=== PATIENT | female | born 1965 | race Caucasian/White ===

== ENCOUNTER 2016-07-21 19:48 | Emergency (ER) | payer OTHER ==
[~2016-07-21 19:48] MED LIST: CLON1TAB3 PO; DIAZ5TAB PO; FLUO10CA13 PO; NALT50TA PO; PROM25SU32 RC; TOPI100T42 PO; TRAZ50TA15 PO
--- NOTE | 2016-07-21 19:50 | ED.ADGEN ---
Past History Past Medical History: Alcoholism, Anxiety Past Surgical History: No Surgical History, Cholecystectomy Alcohol Use: Heavy Drug Use: None Adult General Chief Complaint Chief Complaint Alcohol intoxication HPI HPI Patient is a 51 year old female who presents with alcohol intoxication. according to her and the patient she has a history of alcohol abuse and has been through detox several times. Her last time was 4 months ago and she was able to keep sober until 4 days ago. She's been drinking beer for the last 4 days and not eating or drinking much. The brings her in because of the patient likely being dehydrated. He states she has support at [facility] and is wanting IV hydration and labs. Patient denies any fevers chills nausea vomiting chest pain or abdominal pain. Review of Systems Review of Systems Constitutional: Denies fever or chills [] Eyes: Denies change in visual acuity, redness, or eye pain [] HENT: Denies nasal congestion or sore throat [] Respiratory: Denies cough or shortness of breath [] Cardiovascular: No additional information not addressed in HPI [] GI: Denies abdominal pain, nausea, vomiting, bloody stools or diarrhea [] : Denies dysuria or hematuria [] Musculoskeletal: Denies back pain or joint pain [] Integument: Denies rash or skin lesions [] Neurologic: Denies headache, focal weakness or sensory changes [] Endocrine: Denies polyuria or polydipsia [] Current Medications Current Medications Current Medications Medications (Trade) Dose Ordered Sig/Master Start Time Stop Time Status Last Admin Dose Admin Dextrose/Sodium Chloride 1,000 ml @ As Directed STK-MED ONCE 07/21/16 20:38 07/21/16 20:39 DC Folic Acid 5 mg STK-MED ONCE 07/21/16 20:39 07/21/16 20:40 DC Multivitamins/ Minerals (Infuvite Adult) 10 ml STK-MED ONCE 07/21/16 20:39 07/21/16 20:40 DC Multivitamins/ Minerals 10 ml/ Folic Acid 1 mg/ Thiamine HCl 100 mg/Dextrose/ Sodium Chloride 1,011.2 ml @ 1,000.088 mls/hr 1X ONCE 07/21/16 20:45 07/21/16 21:45 DC 07/21/16 20:45 1,000.088 MLS/HR Pantoprazole Sodium (Protonix) 40 mg 1X ONCE 07/21/16 21:15 07/21/16 21:16 DC 07/21/16 21:15 40 MG Phytonadione (Vitamin K) 10 mg STK-MED ONCE 07/21/16 20:38 07/21/16 20:39 DC Sodium Chloride 1,000 ml @ 1,000 mls/hr 1X ONCE 07/21/16 21:30 07/21/16 22:29 07/21/16 21:23 1,000 MLS/HR Thiamine HCl 200 mg STK-MED ONCE 07/21/16 20:38 07/21/16 20:39 DC Allergies Allergies Allergies Coded Allergies Type Severity Reaction Last Updated Verified No Known Drug Allergies 08/12/15 No Physical Exam Physical Exam Constitutional: Well developed, well nourished, no acute distress, non-toxic appearance. [] HENT: Normocephalic, atraumatic, bilateral external ears normal, oropharynx moist, no oral exudates, nose normal. [] Eyes: PERRLA, EOMI, conjunctiva normal, no discharge. [] Neck: Normal range of motion, no tenderness, supple, no stridor. [] Cardiovascular:Heart rate regular rhythm, no murmur [] Lungs & Thorax: Bilateral breath sounds clear to auscultation [] Abdomen: Bowel sounds normal, soft, no tenderness, no masses, no pulsatile masses. [] Skin: Warm, dry, no erythema, no rash. [] Back: No tenderness, no CVA tenderness. [] Extremities: No tenderness, no cyanosis, no clubbing, ROM intact, no edema. [] Neurologic: Alert and oriented X 3, normal motor function, normal sensory function, no focal deficits noted. [] Psychologic: Affect normal, judgement normal, mood normal. [] Current Patient Data Vital Signs Vital Signs Date Time Temp Pulse Resp B/P (MAP) Pulse Ox O2 Delivery O2 Flow Rate FiO2 07/21/16 19:55 98.3 86 20 95 Room Air Lab Results Laboratory Tests Test 07/21/16 20:05 07/21/16 20:23 Urine Test Negative (NEG) White Blood Count 7.6 x10^3/uL (4.0-11.0) Red Blood Count 4.47 x10^6/uL (3.50-5.40) Hemoglobin 14.2 g/dL (12.0-15.5) Hematocrit 40.8 % (36.0-47.0) Mean Corpuscular Volume 91 fL (79-100) Mean Corpuscular Hemoglobin 32 pg (25-35) Mean Corpuscular Hemoglobin Concent 35 g/dL (31-37) Red Cell Distribution Width 12.7 % (11.5-14.5) Platelet Count 285 x10^3/uL (140-400) Neutrophils (%) (Auto) 65 % (31-73) Lymphocytes (%) (Auto) 31 % (24-48) Monocytes (%) (Auto) 3 % (0-9) Eosinophils (%) (Auto) 1 % (0-3) Basophils (%) (Auto) 0 % (0-3) Neutrophils # (Auto) 5.0 x10^3uL (1.8-7.7) Lymphocytes # (Auto) 2.3 x10^3/uL (1.0-4.8) Monocytes # (Auto) 0.2 x10^3/uL (0.0-1.1) Eosinophils # (Auto) 0.0 x10^3/uL (0.0-0.7) Basophils # (Auto) 0.0 x10^3/uL (0.0-0.2) Urine Collection Type Unknown Urine Color Yellow Urine Clarity Hazy Urine pH 5.5 Urine Specific [place] 1.015 Urine Protein Neg (NEG-TRACE) Urine Glucose (UA) Neg mg/dL (NEG) Urine Ketones (Stick) Neg mg/dL (NEG) Urine Blood Small (NEG) Urine Nitrite Neg (NEG) Urine Bilirubin Neg (NEG) Urine Urobilinogen Dipstick 0.2 mg/dL (0.2 mg/dL) Urine Leukocyte Esterase Neg (NEG) Urine RBC 1-2 /HPF (0-2) Urine WBC 1-4 /HPF (0-4) Urine Squamous Epithelial Cells Mod /LPF Urine Bacteria Few /HPF (0-FEW) Urine Mucus Mod /LPF Sodium Level 144 mmol/L (136-145) Potassium Level 3.9 mmol/L (3.5-5.1) Chloride Level 104 mmol/L (98-107) Carbon Dioxide Level 29 mmol/L (21-32) Anion Gap 11 (6-14) Blood Urea Nitrogen 20 mg/dL (7-20) Creatinine 0.7 mg/dL (0.6-1.0) Estimated GFR (Cockcroft-Gault) 87.9 BUN/Creatinine Ratio 29 (6-20) H Glucose Level 85 mg/dL (70-99) Calcium Level 8.1 mg/dL (8.5-10.1) L Total Bilirubin 0.2 mg/dL (0.2-1.0) Aspartate Amino Transferase (AST) 46 U/L (15-37) H Alanine Aminotransferase (ALT) 44 U/L (14-59) Alkaline Phosphatase 81 U/L (46-116) Total Protein 7.6 g/dL (6.4-8.2) Albumin 3.8 g/dL (3.4-5.0) Albumin/Globulin Ratio 1.0 (1.0-1.7) Ethyl Alcohol Level 293 mg/dL (0-10) H EKG EKG [] Radiology/Procedures Radiology/Procedures [] Course & Med Decision Making Course & Med Decision Making Pertinent Labs and Imaging studies reviewed. (See chart for details) Patient's labs are nonacute. She received Protonix that she's been discharged with Protonix and Phenergan. She is going to follow-up with her [facility] counselor. Return precautions given she and her is agreeable plan of being discharged in stable condition at this time Final Impression Final Impression Dehydration Nausea Alcohol abuse Problems: Dragon Disclaimer Dragon Disclaimer This electronic medical record was generated, in whole or in part, using a voice recognition dictation system. SOLEDAD LUCERO MD Jul 21, 2016 19:50
[2016-07-21] MEDS ORDERED: THIAMINE 200 MG/2 ML VIAL. IV ONE (20:38)
[2016-07-21] MEDS ORDERED: IV DEXTROSE 5 %-0.45 % NACL 1,000 ML ONE (20:38)
[2016-07-21] MEDS ORDERED: PHYTONADIONE 10 MG/ML AMPUL. ONE (20:38)
[2016-07-21] MEDS ORDERED: MVI, ADULT NO.4 WITH VIT K 10 ML VIAL IV ONE (20:39)
[2016-07-21] MEDS ORDERED: FOLIC ACID 5 MG/ML SYRINGE for ER IV ONE (20:39)
[2016-07-21] MEDS ORDERED: MVI, ADULT NO.4 WITH VIT K 10 ML, FOLIC ACID SYRINGE for ER 1 MG, THIAMINE 100 MG in IV... IV ONE ×4 (20:45)
[2016-07-21 20:52] LABS: BASO % 0 % (0-3); EOS % 1 % (0-3); HEMATOCRIT 40.8 % (36.0-47.0); HEMOGLOBIN 14.2 g/dL (12.0-15.5); LYMPH # 2.3 x10^3/uL (1.0-4.8); LYMPH % 31 % (24-48); MEAN CORPUSCULAR HEMOGLOBIN 32 pg (25-35); MEAN CORPUSCULAR HGB CONC 35 g/dL (31-37); MEAN CORPUSCULAR VOLUME 91 fL (79-100); MONO # 0.2 x10^3/uL (0.0-1.1); MONO % 3 % (0-9); NEUT % 65 % (31-73); PLATELET COUNT 285 x10^3/uL (140-400); RED BLOOD COUNT 4.47 x10^6/uL (3.50-5.40); RED CELL DISTRIBUTION WIDTH 12.7 % (11.5-14.5); WHITE BLOOD COUNT 7.6 x10^3/uL (4.0-11.0)
[2016-07-21 20:58] LABS: ALBUMIN 3.8 g/dL (3.4-5.0); CALCIUM 8.1 mg/dL (8.5-10.1); CREATININE 0.7 mg/dL (0.6-1.0); GFR 87.9; POTASSIUM 3.9 mmol/L (3.5-5.1); TOTAL BILIRUBIN 0.2 mg/dL (0.2-1.0); TOTAL PROTEIN 7.6 g/dL (6.4-8.2)
[2016-07-21 21:08] LABS: U PREG PATIENT NEGATIVE (NEG)
[2016-07-21] MEDS ORDERED: PANTOPRAZOLE 40 MG TABLET. PO ONE (21:15)
[2016-07-21 21:24] LABS: CLARITY,URINE HAZY; COLOR,URINE YELLOW; GLUCOSE,URINE NEG (NEG)
[2016-07-21 21:25] LABS: BILIRUBIN,URINE NEG (NEG)
[2016-07-21 21:26] LABS: BACTERIA,URINE FEW /HPF (0-FEW); NITRITE,URINE NEG (NEG); SQUAMOUS EPITHELIAL CELL,UR MOD /LPF; UROBILINOGEN,URINE 0.2 mg/dL (0.2 mg/dL)
[2016-07-21] MEDS ORDERED: IV NORMAL SALINE 1,000ML 1,000 ML IV ONE (21:30)
[2016-07-21] MEDS ORDERED: PROMETHAZINE 12.5 MG in IV NORMAL SALINE 50ML 50 ML IV PRN (22:00)
[2016-07-21] MEDS ORDERED: PROM25TA10 PO (22:01)
[2016-07-21] MEDS ORDERED: PANT40TA3 PO (22:01)
[2016-07-21 22:08] VITALS: BP 114/77
== END 2016-07-21 22:09 | disposition home or self-care (01) ==
LOC: ER 19:48
DX: F10.129 Alcohol abuse with intoxication, unspecified (principal); R11.0 Nausea; F41.9 Anxiety disorder, unspecified
CPT/HCPCS: 36415; 80053; 80320; 81001; 81025; 85027; 96361; 96365; G0480; 99284-25; J7030

== ENCOUNTER 2016-09-23 16:04 | Emergency (ER) | payer OTHER ==
[~2016-09-23] VITALS: Ht 170.2 cm; Wt 56.7 kg
[~2016-09-23 16:04] MED LIST changes: +PANT40TA3 PO; +PROM25TA10 PO
[2016-09-23] MEDS ORDERED: IV NORMAL SALINE 1,000ML 1,000 ML IV ONE (16:30)
[2016-09-23] MEDS ORDERED: FAMOTIDINE 20 MG/2 ML VIAL IVP ONE (16:50)
[2016-09-23] MEDS ORDERED: cloNIDine HCL 0.1 MG TABLET PO PRN (17:30)
[2016-09-23] MEDS ORDERED: LORazepam 2 MG/ML VIAL IV PRN (17:30)
[2016-09-23] MEDS ORDERED: LORazepam 1 MG TABLET PO PRN (17:30)
--- NOTE | 2016-09-23 17:56 | PHYS DOC ---
Past History Past Medical History: Anxiety, Other Past Surgical History: Cholecystectomy Alcohol Use: Heavy Drug Use: None Adult General Chief Complaint Chief Complaint: NAUSEA/VOMITING/DIARRHEA HPI HPI 51-year-old female presenting to the emergency department with hematemesis and concern for possible alcohol withdrawal. She reports being sober for approximately one month and then relapsing about 5 days ago taking about 1 L of hard alcohol every day. She last drank approximately 12-24 hours ago. She denies having much pain but does have nausea with vomiting. She reports coffee- ground emesis. Onset today. Location GI tract. Duration intermittent. No alleviating or exacerbating factors present. Review of systems was negative for chest pain shortness of breath fevers chills headache confusion cyanosis lethargy. All other review of systems is negative unless otherwise noted in history of present illness. ED course: 51-year-old female presenting to the emergency department today with hematemesis. Patient was tachycardic in the emergency department. Afebrile. Mildly hypertensive. IV established and fluids given along with Pepcid. Patient was admitted to [facility] with GI consultation for GI bleeding and alcohol withdrawal treatment. I discussed the case with Dr. Chua who accepted the patient for admission for further evaluation workup and care. Review of Systems Review of Systems SEE ABOVE. Current Medications Current Medications Current Medications Medications (Trade) Dose Ordered Sig/Master Start Time Stop Time Status Last Admin Dose Admin Clonidine HCl (Catapres) 0.1 mg PRN Q1HR PRN 09/23/16 17:30 Famotidine (Pepcid) 20 mg 1X ONCE 09/23/16 16:50 09/23/16 16:51 DC 09/23/16 16:50 20 MG Lorazepam (Ativan) 2 mg PRN Q1HR PRN 09/23/16 17:30 09/23/16 17:33 2 MG Multivitamins/ Minerals 10 ml/ Thiamine HCl 100 mg/Folic Acid 1 mg/Sodium Chloride 1,011.2 ml @ 100 mls/ hr DAILY 09/24/16 09:00 09/29/16 08:59 Sodium Chloride 1,000 ml @ 1,000 mls/hr 1X ONCE 09/23/16 16:30 09/23/16 17:29 DC 09/23/16 16:30 1,000 MLS/HR Allergies Allergies Allergies Coded Allergies Type Severity Reaction Last Updated Verified No Known Drug Allergies 08/12/15 No Physical Exam Physical Exam Constitutional: Well developed, well nourished, no acute distress, non-toxic appearance. [] HENT: Normocephalic, atraumatic, bilateral external ears normal, oropharynx moist, no oral exudates, nose normal. [] Eyes: PERRLA, EOMI, conjunctiva normal, no discharge. [] Neck: Normal range of motion, no tenderness, supple, no stridor. [] Cardiovascular:Heart rate regular rhythm, no murmur [] Lungs & Thorax: Bilateral breath sounds clear to auscultation [] Abdomen: Soft nontender abdomen without rebound tenderness or guarding present. Negative McBurneys point. Negative Parham sign. No ecchymosis present. Skin: Warm, dry, no erythema, no rash. [] Back: No tenderness, no CVA tenderness. [] Extremities: No tenderness, no cyanosis, no clubbing, ROM intact, no edema. [] Neurologic: Alert and oriented X 3, normal motor function, normal sensory function, no focal deficits noted. [] Psychologic: Affect normal, judgement normal, mood normal. [] EKG EKG [] Radiology/Procedures Radiology/Procedures [] Course & Med Decision Making Course & Med Decision Making Pertinent Labs and Imaging studies reviewed. (See chart for details) [] Dragon Disclaimer Dragon Disclaimer This chart was dictated in whole or in part using Voice Recognition software in a busy, high-work load, and often noisy Emergency Department environment. It may contain unintended and wholly unrecognized errors or omissions. Departure Departure: Impression: Primary Impression: Alcohol withdrawal Additional Impressions: Dehydration Hematemesis Disposition: ADMITTED INPATIENT Admitting Physician: Other Condition: STABLE Referrals: ASHUTOSH PUGA (PCP) Problem Qualifiers ANURAG IVY MD Sep 23, 2016 17:56
[2016-09-23 18:01] LABS: BASO % 0 % (0-3); EOS % 0 % (0-3); HEMATOCRIT 42.9 % (36.0-47.0); HEMOGLOBIN 14.1 g/dL (12.0-15.5); LYMPH # 1.5 x10^3/uL (1.0-4.8); LYMPH % 8 % (24-48); MEAN CORPUSCULAR HEMOGLOBIN 31 pg (25-35); MEAN CORPUSCULAR HGB CONC 33 g/dL (31-37); MEAN CORPUSCULAR VOLUME 95 fL (79-100); MONO # 1.1 x10^3/uL (0.0-1.1); MONO % 5 % (0-9); NEUT # 17.3 x10^3uL (1.8-7.7); NEUT % 87 % (31-73); PLATELET COUNT 241 x10^3/uL (140-400); RED BLOOD COUNT 4.52 x10^6/uL (3.50-5.40); WHITE BLOOD COUNT 19.9 x10^3/uL (4.0-11.0)
[2016-09-23 18:14] LABS: ALBUMIN 3.9 g/dL (3.4-5.0); CALCIUM 7.8 mg/dL (8.5-10.1); CREATININE 0.7 mg/dL (0.6-1.0); DIRECT BILIRUBIN 0.2 mg/dL (0.0-0.2); GFR 87.9; TOTAL BILIRUBIN 0.5 mg/dL (0.2-1.0); TOTAL PROTEIN 7.8 g/dL (6.4-8.2)
[2016-09-23 18:21] LABS: PREG TEST PT QUAL NEGATIVE (NEG)
[2016-09-23] MEDS ORDERED: MVI, ADULT NO.4 WITH VIT K 10 ML, THIAMINE 100 MG, FOLIC ACID 1 MG in IV NORMAL SALINE ... IV SCH ×4 (18:30)
[2016-09-23 18:51] VITALS: BP 109/85
[2016-09-23 19:10] LABS: AMPHETAMINE/METHAMPHETAMINE NEG (NEG); BARBITURATES NEG (NEG); BENZODIAZEPINES NEG (NEG); CANNABINOIDS NEG (NEG); COCAINE NEG (NEG); METHADONE NEG (NEG); OPIATES NEG (NEG); PHENCYCLIDINE NEG (NEG)
[2016-09-23 19:11] LABS: BACTERIA,URINE 0 /HPF (0-FEW); BILIRUBIN,URINE NEG (NEG); CLARITY,URINE CLEAR; COLOR,URINE YELLOW; GLUCOSE,URINE NEG (NEG); NITRITE,URINE NEG (NEG); RBC,URINE OCC /HPF (0-2); SQUAMOUS EPITHELIAL CELL,UR MOD /LPF; UROBILINOGEN,URINE 0.2 mg/dL (0.2 mg/dL)
[2016-09-23 20:03] LABS: % BANDS 5 % (0-9); % LYMPHS 9 % (24-48); % MONOS 4 % (0-10); % SEGS 82 % (35-66); PLT ESTIMATE ADEQUATE (ADEQUATE)
== END 2016-09-23 19:40 | disposition other institution (70) ==
LOC: ER 16:04
DX: F10.239 Alcohol dependence with withdrawal, unspecified (principal); E86.0 Dehydration; K92.0 Hematemesis; I10 Essential (primary) hypertension
CPT/HCPCS: 36415; 80048; 80076; 80307; 81001; 82947; 83690; 84703; 85007; 85027; 85610; 85730; 96361; 96365; 96375; 99285; J2060; S0028; G0479; J7030

== ENCOUNTER 2016-12-28 20:16 | Emergency (ER) | payer OTHER ==
[~2016-12-28] VITALS: Ht 170.2 cm; Wt 61.2 kg
[2016-12-28] MEDS ORDERED: MVI, ADULT NO.4 WITH VIT K 10 ML, FOLIC ACID SYRINGE for ER 1 MG, THIAMINE 100 MG in IV... IV ONE ×4 (20:45)
[2016-12-28] MEDS ORDERED: LORazepam 2 MG/ML VIAL IV ONE (20:45)
[2016-12-28] MEDS ORDERED: MVI, ADULT NO.4 WITH VIT K 10 ML VIAL IV ONE (20:59)
[2016-12-28] MEDS ORDERED: THIAMINE IM 200 MG/2 ML VIAL. IM ONE (20:59)
[2016-12-28] MEDS ORDERED: FOLIC ACID 5 MG/ML SYRINGE for ER IV ONE (21:00)
--- NOTE | 2016-12-28 21:03 | EKG ---
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
--- NOTE | 2016-12-28 21:11 | PHYS DOC ---
Past History Past Medical History: Alcoholism, Anxiety, Other Past Surgical History: Cholecystectomy Alcohol Use: Heavy Drug Use: None Adult General Chief Complaint Chief Complaint: intoxication HPI HPI Patient is a pleasant 51-year-old otherwise healthy female with a known history of alcoholism who has completed rehabilitation for separate occasions for alcohol consumption who presents intoxicated. She never had increased stress at home where they've both been drinking he dropped her off here tonight because she's been drinking at home. She denies any complaints of chest pain, abdominal pain other knee. She is not interested in rehabilitation at this time she is not homicidal or suicidal at this time she's not interested in inpatient evaluation or treatment for withdrawal symptoms. She denies any history of DTs or seizures. She typically takes about a fifth of alcohol tonight Review of Systems Review of Systems Constitutional: Denies fever or chills [] Eyes: Denies change in visual acuity, redness, or eye pain [] HENT: Denies nasal congestion or sore throat [] Respiratory: Denies cough or shortness of breath [] Cardiovascular: No additional information not addressed in HPI [] GI: Denies abdominal pain, nausea, vomiting, bloody stools or diarrhea [] : Denies dysuria or hematuria [] Musculoskeletal: Denies back pain or joint pain [] Integument: Denies rash or skin lesions [] Neurologic: Denies headache, focal weakness or sensory changes [] All other systems were reviewed and found to be within normal limits, except as documented in this note. Current Medications Current Medications Current Medications Medications (Trade) Dose Ordered Sig/Master Start Time Stop Time Status Last Admin Dose Admin Folic Acid 5 mg STK-MED ONCE 12/28/16 21:00 12/28/16 21:01 DC Lorazepam (Ativan) 1 mg 1X ONCE 12/28/16 20:45 12/28/16 20:46 DC Multivitamins/ Minerals (Infuvite Adult) 10 ml STK-MED ONCE 12/28/16 20:59 12/28/16 21:00 DC Multivitamins/ Minerals 10 ml/ Folic Acid 1 mg/ Thiamine HCl 100 mg/Sodium Chloride 1,011.2 ml @ 1,000 mls/ hr 1X ONCE 12/28/16 20:45 12/28/16 21:45 Thiamine HCl 200 mg STK-MED ONCE 12/28/16 20:59 12/28/16 21:00 DC Allergies Allergies Allergies Coded Allergies Type Severity Reaction Last Updated Verified No Known Drug Allergies 08/12/15 No Physical Exam Physical Exam The vital signs recorded on the chart within normal limits Constitutional: Well developed, well nourished, no acute distress, non-toxic appearance. [] HENT: Normocephalic, atraumatic, bilateral external ears normal, oropharynx moist, no oral exudates, nose normal. [] Eyes: PERRLA, EOMI, conjunctiva normal, no discharge. [] Neck: Normal range of motion, no tenderness, supple, no stridor. [] Cardiovascular:Heart rate regular rhythm, no murmur [] Lungs & Thorax: Bilateral breath sounds clear to auscultation [] Abdomen: Bowel sounds normal, soft, no tenderness, no masses, no pulsatile masses. [] Skin: Warm, dry, no erythema, no rash. [] Extremities: No tenderness, Neurologic: Alert and oriented X 3, normal motor function, normal sensory function, no focal deficits noted. [] Psychologic: No suicidal homicidal ideations patient with normal judgment although she is not interested in rehabilitation at this time. Current Patient Data Lab Results Laboratory Tests Test 12/28/16 20:50 White Blood Count 9.1 x10^3/uL (4.0-11.0) Red Blood Count 4.29 x10^6/uL (3.50-5.40) Hemoglobin 13.8 g/dL (12.0-15.5) Hematocrit 40.1 % (36.0-47.0) Mean Corpuscular Volume 93 fL (79-100) Mean Corpuscular Hemoglobin 32 pg (25-35) Mean Corpuscular Hemoglobin Concent 35 g/dL (31-37) Red Cell Distribution Width 13.1 % (11.5-14.5) Platelet Count 330 x10^3/uL (140-400) Neutrophils (%) (Auto) 51 % (31-73) Lymphocytes (%) (Auto) 40 % (24-48) Monocytes (%) (Auto) 6 % (0-9) Eosinophils (%) (Auto) 3 % (0-3) Basophils (%) (Auto) 1 % (0-3) Neutrophils # (Auto) 4.7 x10^3uL (1.8-7.7) Lymphocytes # (Auto) 3.6 x10^3/uL (1.0-4.8) Monocytes # (Auto) 0.5 x10^3/uL (0.0-1.1) Eosinophils # (Auto) 0.2 x10^3/uL (0.0-0.7) Basophils # (Auto) 0.1 x10^3/uL (0.0-0.2) Sodium Level 142 mmol/L (136-145) Potassium Level 3.6 mmol/L (3.5-5.1) Chloride Level 103 mmol/L (98-107) Carbon Dioxide Level 28 mmol/L (21-32) Anion Gap 11 (6-14) Blood Urea Nitrogen 16 mg/dL (7-20) Creatinine 0.8 mg/dL (0.6-1.0) Estimated GFR (Cockcroft-Gault) 75.3 Glucose Level 98 mg/dL (70-99) Calcium Level 8.2 mg/dL (8.5-10.1) L Magnesium Level 2.3 mg/dL (1.8-2.4) Total Bilirubin 0.1 mg/dL (0.2-1.0) L Direct Bilirubin 0.1 mg/dL (0.0-0.2) Aspartate Amino Transferase (AST) 24 U/L (15-37) Alanine Aminotransferase (ALT) 22 U/L (14-59) Alkaline Phosphatase 64 U/L (46-116) Total Protein 7.3 g/dL (6.4-8.2) Albumin 3.7 g/dL (3.4-5.0) Salicylates Level 1.0 mg/dL (2.8-20.0) L Salicylate Last Dose Date 12/27/16 Salicylate Last Dose Time 0000 Acetaminophen Level < 2.0 mcg/mL (10-30) L Acetaminophen Last Dose Date 12/27/16 Acetaminophen Last Dose Time 0000 Ethyl Alcohol Level 308 mg/dL (0-10) H EKG EKG []Time of EKG is a 50 6 PM 12/28/2016 read by me demonstrates a P every QRS normal sinus rhythm with a LA interval of 160 which is normal QRS width of 88 which is normal QTC which is 454 which is also normal. Radiology/Procedures Radiology/Procedures [] Course & Med Decision Making Course & Med Decision Making Pertinent Labs and Imaging studies reviewed. (See chart for details) She presents intoxicated tonight with no complaints. No history of DTs or seizure activity after withdrawing from alcohol. She is not depressed, not suicidal or homicidal has no plan. The by her and because she was intoxicated. She is stated she is not admission rehabilitation she has no complaints prefer to go home. With course of her evaluation patient's alcohol level was 308 she is lucid and talkative with normal judgment. She was given a liter of fluids here to include thiamine folate and a multivitamin. sHe has a safe place to go and is not being threatened at home although she is having some stress with the relation with her . [] Dragon Disclaimer Dragon Disclaimer This electronic medical record was generated, in whole or in part, using a voice recognition dictation system. Departure Departure: Impression: Primary Impression: Alcoholism Disposition: HOME, SELF-CARE Condition: STABLE Referrals: ASHUTOSH PUGA (PCP) Patient Instructions: Alcohol Intoxication, Chronic Alcoholism Additional Instructions: discharge: I've spoken with the patient and/or caregivers. I've explained the patient's condition, diagnosis and treatment plan based on information available to me at this time. I've answered the patient's and/or caregivers questions and addressed any concerns. The patient and/or caregivers have a good understanding the patient's diagnosis, condition and treatment plan as can be expected at this point. Vital signs have been stabilized. The patient's condition is stable for discharge from the emergency department. The patient will pursue further outpatient evaluation with her primary care provider or other designated consulting physician as outlined in the discharge instructions. Patient and/or caregivers are agreeable to this plan of care and follow-up instructions have been explained in detail. The patient and/or caregivers have received these instructions in written format and expressed understanding of these discharge instructions. The patient and her caregivers are aware that if any significant change in condition or worsening of symptoms should prompt him to immediately return to this of the closest emergency department. If an emergent department is not readily available I would encourage him to call 911. Scripts Lorazepam (ATIVAN) 1 Mg Tablet 1 MG PO TID for 5 Days, #15 TAB Prov: KAIDEN CARMONA MD 12/28/16 KAIDEN CARMONA MD Dec 28, 2016 21:11
[2016-12-28 21:13] LABS: BASO # 0.1 x10^3/uL (0.0-0.2); BASO % 1 % (0-3); EOS # 0.2 x10^3/uL (0.0-0.7); EOS % 3 % (0-3); HEMATOCRIT 40.1 % (36.0-47.0); HEMOGLOBIN 13.8 g/dL (12.0-15.5); LYMPH # 3.6 x10^3/uL (1.0-4.8); LYMPH % 40 % (24-48); MEAN CORPUSCULAR HEMOGLOBIN 32 pg (25-35); MEAN CORPUSCULAR HGB CONC 35 g/dL (31-37); MEAN CORPUSCULAR VOLUME 93 fL (79-100); MONO # 0.5 x10^3/uL (0.0-1.1); MONO % 6 % (0-9); NEUT # 4.7 x10^3uL (1.8-7.7); NEUT % 51 % (31-73); PLATELET COUNT 330 x10^3/uL (140-400); RED BLOOD COUNT 4.29 x10^6/uL (3.50-5.40); RED CELL DISTRIBUTION WIDTH 13.1 % (11.5-14.5); WHITE BLOOD COUNT 9.1 x10^3/uL (4.0-11.0)
[2016-12-28 21:23] LABS: ETHANOL 308 mg/dL (0-10)
[2016-12-28 21:24] LABS: ACETAMIN < 2.0 mcg/mL (10-30); ALBUMIN 3.7 g/dL (3.4-5.0); CALCIUM 8.2 mg/dL (8.5-10.1); CREATININE 0.8 mg/dL (0.6-1.0); DIRECT BILIRUBIN 0.1 mg/dL (0.0-0.2); GFR 75.3; MAGNESIUM 2.3 mg/dL (1.8-2.4); POTASSIUM 3.6 mmol/L (3.5-5.1); TOTAL BILIRUBIN 0.1 mg/dL (0.2-1.0); TOTAL PROTEIN 7.3 g/dL (6.4-8.2)
[2016-12-28] MEDS ORDERED: LORA-434 PO (21:50)
[2016-12-28 22:41] VITALS: BP 122/79
[2016-12-28 22:51] LABS: BACTERIA,URINE 0 /HPF (0-FEW); BILIRUBIN,URINE NEG (NEG); CLARITY,URINE CLOUDY; COLOR,URINE STRAW; GLUCOSE,URINE NEG (NEG); NITRITE,URINE NEG (NEG); RBC,URINE 0 /HPF (0-2); UROBILINOGEN,URINE 0.2 mg/dL (0.2 mg/dL); WBC,URINE OCC /HPF (0-4)
[2016-12-28 22:52] LABS: AMORPHOUS SEDIMENT,UR PRESENT /HPF; SQUAMOUS EPITHELIAL CELL,UR OCC /LPF
[2016-12-28 23:00] LABS: AMPHETAMINE/METHAMPHETAMINE NEG (NEG); BARBITURATES NEG (NEG); BENZODIAZEPINES NEG (NEG); CANNABINOIDS NEG (NEG); COCAINE NEG (NEG); METHADONE NEG (NEG); OPIATES NEG (NEG); PHENCYCLIDINE NEG (NEG)
== END 2016-12-28 23:00 | disposition home or self-care (01) ==
LOC: ER 20:16
DX: F10.20 Alcohol dependence, uncomplicated (principal); F41.9 Anxiety disorder, unspecified
CPT/HCPCS: 36415; 80048; 80076; 80307; 81001; 83735; 85025; 93005; 96365; 96366; 96375; 99285; G0480; J2060; G0479; J7030

== ENCOUNTER 2017-04-01 16:57 | Inpatient (IN) | payer OTHER ==
[~2017-04-01] VITALS: Ht 170.2 cm; Wt 57.8 kg
[~2017-04-01 16:57] MED LIST changes: +LORA-434 PO
[2017-04-01] MEDS ORDERED: FAMOTIDINE 20 MG/2 ML VIAL IVP ONE (17:15)
[2017-04-01] MEDS ORDERED: MVI, ADULT NO.4 WITH VIT K 10 ML, FOLIC ACID SYRINGE for ER 1 MG, THIAMINE 100 MG in IV... IV ONE ×8 (17:15→20:00)
--- NOTE | 2017-04-01 17:27 | EKG ---
[address] [address] Test Date: 2017-04-01 Test Time: 17:29:20 Pat Name: RAINER QUESADA Department: Room: ICU02 1 Gender: F Warp Worker: AGUSTINA : 1965 Requested By: MARTÍN ZHONG Order Number: [id number] Reading MD: Donald Dawkins Measurements Intervals [place] Rate: 101 P: -81 MI: 116 QRS: 7 QRSD: 88 T: 30 QT: 340 QTc: 442 Interpretive Statements SINUS RHYTHM NONSPECIFIC ST-T WAVE CHANGES. RI6.01 Electronically Signed On 04-07-2017 9:16:33 CERTIFIED TECHNICIAN SPECIALIST by Donald Dawkins
[2017-04-01 17:32] LABS: BASO # 0.1 x10^3/uL (0.0-0.2); BASO % 1 % (0-3); EOS % 0 % (0-3); HEMATOCRIT 45.6 % (36.0-47.0); HEMOGLOBIN 15.5 g/dL (12.0-15.5); LYMPH # 2.6 x10^3/uL (1.0-4.8); LYMPH % 31 % (24-48); MEAN CORPUSCULAR HEMOGLOBIN 32 pg (25-35); MEAN CORPUSCULAR HGB CONC 34 g/dL (31-37); MEAN CORPUSCULAR VOLUME 93 fL (79-100); MONO # 0.4 x10^3/uL (0.0-1.1); MONO % 4 % (0-9); NEUT # 5.4 x10^3uL (1.8-7.7); NEUT % 64 % (31-73); PLATELET COUNT 411 x10^3/uL (140-400); RED BLOOD COUNT 4.89 x10^6/uL (3.50-5.40); RED CELL DISTRIBUTION WIDTH 13.1 % (11.5-14.5); WHITE BLOOD COUNT 8.5 x10^3/uL (4.0-11.0)
[2017-04-01 17:44] LABS: ACETAMIN < 2.0 mcg/mL (10-30); ETHANOL < 10 mg/dL (0-10); SALIC 1.6 mg/dL (2.8-20.0)
[2017-04-01 17:45] LABS: ALBUMIN 4.4 g/dL (3.4-5.0); CALCIUM 9.3 mg/dL (8.5-10.1); CREATININE 2.5 mg/dL (0.6-1.0); DIRECT BILIRUBIN 0.2 mg/dL (0.0-0.2); GFR 20.1; MAGNESIUM 2.1 mg/dL (1.8-2.4); POTASSIUM 3.4 mmol/L (3.5-5.1); TOTAL BILIRUBIN 0.5 mg/dL (0.2-1.0); TOTAL PROTEIN 8.6 g/dL (6.4-8.2)
--- NOTE | 2017-04-01 18:31 | ED.ADGEN ---
Past History Past Medical History: Alcoholism Past Surgical History: Cholecystectomy Alcohol Use: Heavy Drug Use: None Adult General Chief Complaint Chief Complaint " I am sick..." I Just tried to quit..." HPI HPI Patient is a 52 year old female who presents with above hx and complaints of chronic alcoholism. Pt. recently stopped intake of alcohol and has developed nausea and vomiting. concerned that she may have drank some isopropyl alcohol earlier today. Patient has history of 10 years of persistent alcohol abuse. Patient has only had intermittent episodes of alcohol cessation. The longest time has been 9 months. Patient develops severe nausea and vomiting tremors upon stopping alcohol use. Patient currently having nausea and vomiting. Patient was having dry heaves with specks of blood noted. Pt. follows at [facility] for primary care. Review of Systems Review of Systems Constitutional: Denies fever or chills [] Eyes: Denies change in visual acuity, redness, or eye pain [] HENT: Denies nasal congestion or sore throat [] Respiratory: Denies cough or shortness of breath [] Cardiovascular: No additional information not addressed in HPI [] GI: Complaints of generalized abdominal pain, nausea, vomiting. Denies bloody stools or diarrhea [] : Denies dysuria or hematuria [] Musculoskeletal: Denies back pain or joint pain [] Integument: Denies rash or skin lesions [] Neurologic: Denies headache, focal weakness or sensory changes [] Endocrine: Denies polyuria or polydipsia [] All other systems were reviewed and found to be within normal limits, except as documented in this note. Family History Family History Noncontributory Current Medications Current Medications Current Medications Medications (Trade) Dose Ordered Sig/Master Start Time Stop Time Status Last Admin Dose Admin Famotidine (Pepcid Vial) 20 mg 1X ONCE 04/01/17 17:15 04/01/17 17:17 DC 04/01/17 17:31 20 MG Lorazepam (Ativan) 2 mg 1X ONCE 04/01/17 19:30 04/01/17 19:31 DC 04/01/17 19:39 2 MG Multivitamins/ Minerals 10 ml/ Folic Acid 1 mg/ Thiamine HCl 100 mg/Dextrose/ Lactated Ringer's 1,011.2 ml @ 0 mls/hr 1X ONCE 04/01/17 18:45 04/01/17 18:46 UNV Multivitamins/ Minerals 10 ml/ Folic Acid 1 mg/ Thiamine HCl 100 mg/Dextrose/ Sodium Chloride 1,011.1 ml @ 1,000 mls/ hr 1X ONCE 04/01/17 17:15 04/01/17 18:15 DC 04/01/17 17:38 1,000 MLS/HR Multivitamins/ Minerals 10 ml/ Folic Acid 1 mg/ Thiamine HCl 100 mg/Lactated Ringer's 1,011.1 ml @ 1,000 mls/ hr 1X STAT 04/01/17 19:17 04/01/17 20:17 UNV Ondansetron HCl (Zofran) 8 mg 1X ONCE 04/01/17 19:30 04/01/17 19:31 DC 04/01/17 19:38 8 MG Allergies Allergies Allergies Coded Allergies Type Severity Reaction Last Updated Verified No Known Drug Allergies 08/12/15 No Physical Exam Physical Exam Constitutional: in acute distress, non-toxic appearance. [] HENT: Normocephalic, atraumatic, bilateral external ears normal, oropharynx dry, , no oral exudates, nose normal. [] Eyes: PERRLA, EOMI, conjunctiva normal, no discharge. [] Neck: Normal range of motion, no tenderness, supple, no stridor. [] Cardiovascular: Tachycardia Heart rate regular rhythm, no murmur [] Lungs & Thorax: Bilateral breath sounds clear to auscultation [] Abdomen: Bowel sounds decreased, soft, generalized tenderness, no masses, no pulsatile masses. Old surgical scar Skin: Warm, dry, no erythema, no rash. [] Back: No tenderness, no CVA tenderness. [] Extremities: No tenderness, no cyanosis, no clubbing, ROM intact, no edema. [] Neurologic: Alert and oriented X 3, normal motor function, normal sensory function, no focal deficits noted. [] Psychologic: Affect anxious, judgement poor insight, mood depressed Current Patient Data Vital Signs Vital Signs Date Time Temp Pulse Resp B/P (MAP) Pulse Ox O2 Delivery O2 Flow Rate FiO2 04/01/17 17:16 97.8 98 20 100 Room Air Lab Results Laboratory Tests Test 04/01/17 17:06 04/01/17 18:57 04/01/17 19:20 White Blood Count 8.5 x10^3/uL (4.0-11.0) Red Blood Count 4.89 x10^6/uL (3.50-5.40) Hemoglobin 15.5 g/dL (12.0-15.5) Hematocrit 45.6 % (36.0-47.0) Mean Corpuscular Volume 93 fL (79-100) Mean Corpuscular Hemoglobin 32 pg (25-35) Mean Corpuscular Hemoglobin Concent 34 g/dL (31-37) Red Cell Distribution Width 13.1 % (11.5-14.5) Platelet Count 411 x10^3/uL (140-400) H Neutrophils (%) (Auto) 64 % (31-73) Lymphocytes (%) (Auto) 31 % (24-48) Monocytes (%) (Auto) 4 % (0-9) Eosinophils (%) (Auto) 0 % (0-3) Basophils (%) (Auto) 1 % (0-3) Neutrophils # (Auto) 5.4 x10^3uL (1.8-7.7) Lymphocytes # (Auto) 2.6 x10^3/uL (1.0-4.8) Monocytes # (Auto) 0.4 x10^3/uL (0.0-1.1) Eosinophils # (Auto) 0.0 x10^3/uL (0.0-0.7) Basophils # (Auto) 0.1 x10^3/uL (0.0-0.2) Prothrombin Time 10.2 SEC (9.4-11.4) Prothrombin Time INR 1.0 (0.9-1.1) PTT 23 SEC (23-33) Sodium Level 141 mmol/L (136-145) Potassium Level 3.4 mmol/L (3.5-5.1) L Chloride Level 100 mmol/L (98-107) Carbon Dioxide Level 30 mmol/L (21-32) Anion Gap 11 (6-14) Blood Urea Nitrogen 8 mg/dL (7-20) Creatinine 2.5 mg/dL (0.6-1.0) H Estimated GFR (Cockcroft-Gault) 20.1 Glucose Level 149 mg/dL (70-99) H Calcium Level 9.3 mg/dL (8.5-10.1) Magnesium Level 2.1 mg/dL (1.8-2.4) Total Bilirubin 0.5 mg/dL (0.2-1.0) Direct Bilirubin 0.2 mg/dL (0.0-0.2) Aspartate Amino Transferase (AST) 22 U/L (15-37) Alanine Aminotransferase (ALT) 22 U/L (14-59) Alkaline Phosphatase 60 U/L (46-116) Total Protein 8.6 g/dL (6.4-8.2) H Albumin 4.4 g/dL (3.4-5.0) Salicylates Level 1.6 mg/dL (2.8-20.0) L Salicylate Last Dose Date Unk Salicylate Last Dose Time Unk Acetaminophen Level < 2.0 mcg/mL (10-30) L Acetaminophen Last Dose Date Unk Acetaminophen Last Dose Time Unk Ethyl Alcohol Level < 10 mg/dL (0-10) Urine Collection Type Unknown Urine Color Yellow Urine Clarity Clear Urine pH 7.0 Urine Specific [place] 1.015 Urine Protein Trace (NEG-TRACE) Urine Glucose (UA) >=1000 mg/dL (NEG) Urine Ketones (Stick) 15 mg/dL (NEG) Urine Blood Trace (NEG) Urine Nitrite Neg (NEG) Urine Bilirubin Neg (NEG) Urine Urobilinogen Dipstick 0.2 mg/dL (0.2 mg/dL) Urine Leukocyte Esterase Trace (NEG) Urine RBC Occ /HPF (0-2) Urine WBC 1-4 /HPF (0-4) Urine Squamous Epithelial Cells Occ /LPF Urine Amorphous Sediment Present /HPF Urine Bacteria Few /HPF (0-FEW) Urine Mucus Slight /LPF Urine Opiates Screen Neg (NEG) Urine Methadone Screen Neg (NEG) Urine Barbiturates Neg (NEG) Urine Phencyclidine Screen Neg (NEG) Urine Amphetamine/Methamphetamine Neg (NEG) Urine Benzodiazepines Screen Neg (NEG) Urine Cocaine Screen Neg (NEG) Urine Cannabinoids Screen Neg (NEG) Urine Ethyl Alcohol Neg (NEG) Blood pH 7.48 (7.35-7.45) H Blood Gas PCO2 33 mmHg (35-45) L Blood Gas PO2 93 mmHg (80-100) Blood Gas HCO3 24 mmol/L (22-26) Arterial Bld O2 Saturation (Calc) 98 % (92-99) FiO2 21 % EKG EKG My interpretation of EKG shows a sinus tachycardia in the 101 bpm. Does have any findings acute STEMI with contralateral changes Radiology/Procedures Radiology/Procedures My interpretation of acute abdomen film shows no free air under the diaphragm. Pulmonary portion of acute abdomen film shows no acute cardiopulmonary findings. Abdomen shows nonspecific bowel gas pattern and clips from previous gallbladder surgery.[] Course & Med Decision Making Course & Med Decision Making Pertinent Labs and Imaging studies reviewed. (See chart for details). 1900 awaiting call back labs for atypical alcohol intake. 1919 discussed presentation, testing and tx plan with Dr. Ybarra. Plan admit, hydrate and possible referral to in pt. alcohol withdrawal program. See poison control recommendations. [] Final Impression Final Impression 1. Alcohol Withdrawal 2. Nausea and vomiting 3. Thrombocytosis- 411 4. Hypokalemia-3.4 5. Elevated Glucose -149 6. Dehydration [] Problems: Dragon Disclaimer Dragon Disclaimer This electronic medical record was generated, in whole or in part, using a voice recognition dictation system. TIFFANY LIN MD Apr 01, 2017 18:31
[2017-04-01] MEDS ORDERED: MVI, ADULT NO.4 WITH VIT K 10 ML, FOLIC ACID 1 MG, THIAMINE 100 MG in IV DEXTROSE 5%-LA... IV ONE ×4 (18:45)
[2017-04-01] MEDS ORDERED: MVI, ADULT NO.4 WITH VIT K 10 ML, FOLIC ACID SYRINGE for ER 1 MG, THIAMINE 100 MG in IV... IV STA ×4 (19:17)
[2017-04-01] MEDS ORDERED: LORazepam 2 MG/ML VIAL IV ONE (19:30)
[2017-04-01] MEDS ORDERED: ONDANSETRON PF 4 MG/2 ML VIAL. IV ONE (19:30)
[2017-04-01 19:37] LABS: BACTERIA,URINE FEW /HPF (0-FEW); BILIRUBIN,URINE NEG (NEG); CLARITY,URINE CLEAR; COLOR,URINE YELLOW; GLUCOSE,URINE >=1000 mg/dL (NEG); NITRITE,URINE NEG (NEG); RBC,URINE OCC /HPF (0-2); UROBILINOGEN,URINE 0.2 mg/dL (0.2 mg/dL)
[2017-04-01 19:38] LABS: AMORPHOUS SEDIMENT,UR PRESENT /HPF; SQUAMOUS EPITHELIAL CELL,UR OCC /LPF
[2017-04-01] MEDS ORDERED: LORazepam 2 MG/ML VIAL IV PRN (19:45)
[2017-04-01] MEDS ORDERED: ONDANSETRON PF 4 MG/2 ML VIAL. IV PRN (19:45)
[2017-04-01 19:49] LABS: BARBITURATES NEG (NEG); BENZODIAZEPINES NEG (NEG); CANNABINOIDS NEG (NEG); COCAINE NEG (NEG); METHADONE NEG (NEG); OPIATES NEG (NEG); PHENCYCLIDINE NEG (NEG)
[2017-04-01 19:57] LABS: AMPHETAMINE/METHAMPHETAMINE NEG (NEG)
[2017-04-01] MEDS ORDERED: SODIUM BICARB ADULT 8.4% 50 MEQ/50 ML DISP.SYRIN. IV ONE (20:00)
[2017-04-01] MEDS ORDERED: PROMETHAZINE IM 25 MG/ML VIAL IM ONE (21:00)
[2017-04-01 22:19] VITALS: BP 127/72
[2017-04-01] MEDS: IV RINGERS SOLUTION,LACTATED 1,000 ML IV SCH (22:41)
[2017-04-01] MEDS: LORazepam 2 MG/ML VIAL IV SCH (22:42)
[2017-04-01 23:02] LABS: BGAS PH 7.48 (7.35-7.45)
[2017-04-01 23:32] VITALS: BP 104/65
[2017-04-02] VITALS (17 sets, daily range): BP systolic 90–124; BP diastolic 56–81
[2017-04-02 01:18] LABS: ACETAMIN < 2.0 mcg/mL (10-30)
[2017-04-02] MEDS: IV RINGERS SOLUTION,LACTATED 1,000 ML IV SCH (04:18)
[2017-04-02] MEDS ORDERED: ACETAMINOPHEN 325 MG TABLET PO PRN (04:45)
[2017-04-02 06:56] LABS: BASO % 1 % (0-3); CALCIUM 8.2 mg/dL (8.5-10.1); CREATININE 2.1 mg/dL (0.6-1.0); EOS % 0 % (0-3); GFR 24.6; HEMATOCRIT 35.3 % (36.0-47.0); HEMOGLOBIN 11.9 g/dL (12.0-15.5); LYMPH # 2.5 x10^3/uL (1.0-4.8); LYMPH % 37 % (24-48); MEAN CORPUSCULAR HEMOGLOBIN 32 pg (25-35); MEAN CORPUSCULAR HGB CONC 34 g/dL (31-37); MEAN CORPUSCULAR VOLUME 94 fL (79-100); MONO # 0.4 x10^3/uL (0.0-1.1); MONO % 6 % (0-9); NEUT # 3.8 x10^3uL (1.8-7.7); NEUT % 56 % (31-73); PLATELET COUNT 281 x10^3/uL (140-400); POTASSIUM 3.2 mmol/L (3.5-5.1); RED BLOOD COUNT 3.74 x10^6/uL (3.50-5.40); WHITE BLOOD COUNT 6.9 x10^3/uL (4.0-11.0)
--- NOTE | 2017-04-02 08:21 | RAD ---
EXAM: Two view abdomen with one view chest HISTORY: Nausea and vomiting. COMPARISON: 08/12/2015. FINDINGS: A frontal view of the chest and supine/upright views of the abdomen are obtained. There are no confluent infiltrates. There is no pneumothorax or pleural effusion. The heart is not enlarged. There is no pneumoperitoneum. There are no distended small bowel loops or significant air-fluid levels. There is gas distally. Cholecystectomy clips are noted. IMPRESSION: 1. No confluent infiltrates. 2. No evidence of obstruction.
[2017-04-02] MEDS: LORazepam 2 MG/ML VIAL IV SCH (08:31)
[2017-04-02] MEDS ORDERED: [UNRECOGNIZED DRUG - REMARK] IV SCH ×4 (09:00)
[2017-04-02] MEDS ORDERED: diazePAM 5 MG TABLET PO PRN (13:00)
[2017-04-02] MEDS ORDERED: PROMETHAZINE 25 MG SUPP.RECT. RC PRN ×3 (13:00)
[2017-04-02] MEDS ORDERED: FLU VACC QS2017-18 (36MOS+)/PF 0.5 ML SYRINGE. VAX IM ONE (13:00)
[2017-04-02] MEDS ORDERED: PROMETHAZINE 25 MG TABLET. PO PRN (13:00)
[2017-04-02] MEDS: LORazepam 1 MG TABLET PO SCH ×2 (13:39→20:58)
[2017-04-02] MEDS ORDERED: IV NORMAL SALINE 1,000ML 1,000 ML IV SCH (15:45)
[2017-04-02] MEDS ORDERED: LORazepam 2 MG/ML VIAL IV PRN (16:00)
[2017-04-02] MEDS: LORazepam 2 MG/ML VIAL IV PRN ×2 (16:20→19:49)
--- NOTE | 2017-04-02 16:44 | HP ---
ADMIT DATE: 04/01/2017 HISTORY OF PRESENT ILLNESS: The patient is a 52-year-old female patient, who came to the Emergency Room complaining that she is sick, just tried to quit, but basically developed severe anxiety as she stopped intake of alcohol. She apparently drank some isopropyl alcohol. She apparently has history of 10 years of persistent alcohol abuse, has had undergone treatment about 4 times a day, quit for almost 9 months as the longest period of alcohol cessation. She always developed severe nausea and vomiting and tremors upon stopping alcohol. By the time she arrived to the Emergency Room, she was having nausea, vomiting and dry heaves with specks of blood noted. She normally follows at the [facility] for her primary care physician. She was basically admitted with alcohol withdrawal, nausea and vomiting, hypokalemia, dehydration and acute kidney injury, started on banana bag, to follow her lab work with alcohol withdrawal protocol. PAST MEDICAL HISTORY: Unremarkable except for alcoholism. PAST SURGICAL HISTORY: Significant for cholecystectomy. ALLERGIES: She has no known drug allergies. MEDICATIONS: She is currently on following medications: She is on diazepam 5 mg 3 times a day, fluoxetine 10 mg for Prozac once a day, lorazepam 1 mg 3 times a day, naltrexone 50 mg at bedtime, Protonix 40 mg once a day, promethazine for Phenergan 25 mg as needed for nausea and vomiting. She is on topiramate 100 mg daily and trazodone 50 mg at bedtime. FAMILY HISTORY: She has one brother who is younger and healthy. Father is alive and has coronary artery disease. Mother is alive and has multiple autoimmune diseases. SOCIAL HISTORY: She is , has 2 sons and 1 daughter. She smokes occasionally. Drinks about 6 packs of beer every day. Does not use any drugs. 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 REVIEW OF SYSTEMS: The patient denied any blurring of vision, cataract, glaucoma or macular degeneration. Denied any earache, tinnitus or sensorineural deafness. Denied any nosebleeds, stuffy nose or postnasal drip. Denied any sore throat, sore tongue, toothache, hoarseness of voice or difficulty swallowing. Did complain of nausea, vomiting, and vomited specks of blood, but denied any melena or hematochezia. Denied any dysuria, frequency or hematuria. Denied any chest pain, shortness of breath, orthopnea, paroxysmal nocturnal dyspnea. Denied any cough, phlegm or hemoptysis. PHYSICAL EXAMINATION: GENERAL: On arrival to the Emergency Room, she looked generally well and was clearly in no apparent respiratory distress, pale, but no jaundice, cyanosis, or thyromegaly. No jugular venous distention. No limb edema. VITAL SIGNS: Her heart rate was 88, blood pressure 127/72, temperature was 98.9, respiratory rate 20, and oxygen saturation was 96% on room air. HEAD, EYES, EARS, NOSE AND THROAT: Showed normocephalic, atraumatic. NECK: Supple. HEART: Showed normal first and second heart sounds with no gallop, rub or murmur. CHEST: Clear to auscultation. No crepitation or rhonchi. ABDOMEN: Distended, soft, nontender. No guarding or rigidity. No organomegaly. Her hernial orifices intact. Bowel sounds normal. NEUROLOGIC: She was awake, alert, somewhat anxious, but all the cranial nerves are intact. EXTREMITIES: She moves extremities without difficulty. She ambulates without assistance or assistive devices. LABORATORY DATA: Showed a white cell count of 8500, hemoglobin 15.5, hematocrit 45, MCV 93, and platelet count of 411,000. Her chemistry showed a serum sodium 141, potassium 3.4, chloride 100, bicarbonate 30, anion gap of 11, BUN 8, creatinine 2.5, estimated GFR was 20 mL per minute. Her glucose was 149. Lactic acid was 5. Calcium was 9.3, magnesium was 2.1. Total bilirubin, AST, ALT, alkaline phosphatase were normal. Her total protein was 8.6, albumin was 4.4. Blood gases showed a pH of 7.48, pCO2 of 33, pO2 93, bicarbonate 24, oxygen saturation was 98% on FiO2 21%. Her prothrombin time was 10.2, INR 1, aPTT was 23 and urinalysis was unremarkable. Toxic screen was negative. IMPRESSION AND PLAN: In summary, this is a 52-year-old who apparently attempted to quit drinking and ended up drinking isopropyl alcohol. She could not quantify the amount of isopropyl alcohol she drank. On admission, her lab work showed that she has hypokalemia and acute kidney injury together with lactic acidosis. We will continue with IV fluid and replenish her potassium and follow her labs closely. LANCE SIMON MD DR: Farida JOB#: [id number] / [id number]
[2017-04-02] MEDS: IV NORMAL SALINE 1,000ML 1,000 ML IV SCH (19:36)
[2017-04-02] MEDS: POTASSIUM CHLORIDE 20 MEQ TABLET.ER. PO SCH (20:58)
[2017-04-02] MEDS ORDERED: traZODone 50 MG TABLET. PO SCH (21:00)
[2017-04-02] MEDS ORDERED: NALTREXONE HCL 50 MG TABLET PO SCH (21:00)
--- NOTE | 2017-04-03 02:13 | PN ---
DATE: 04/02/2017 SUBJECTIVE: The patient is resting slightly propped up in bed, in no apparent distress. She is somewhat withdrawn, very tearful, continues to complain of severe anxiety, but denied any other complaint. PHYSICAL EXAMINATION: GENERAL: When I examined her, she was somewhat lethargic, but no jaundice, cyanosis, or thyromegaly. No jugular venous distention. No limb edema. VITAL SIGNS: Her heart rate was 88, blood pressure was 127/72, temperature was 98.9, respiratory rate 20, and oxygen saturation was 96%. HEAD, EYES, EARS, NOSE AND THROAT: Normocephalic, atraumatic. NECK: Supple. HEART: Showed normal first and second heart sounds. No gallop, rub or murmur. CHEST: Clear to auscultation. No crepitation or rhonchi. ABDOMEN: Distended, soft, nontender. No guarding or rigidity. No organomegaly. All hernial orifices are intact. Bowel sounds are normal. NEUROLOGIC: She was awake, alert, responding appropriately. All her cranial nerves are intact. She moves all extremities without difficulty. She ambulates without assistance or assistive devices. Her intake was 985, output was 350. LABORATORY DATA: Showed a serum sodium 141, potassium 3.2, chloride 104, bicarbonate 31, anion gap of 6, BUN 7, creatinine 2.1, estimated GFR was 24 mL per minute. Her glucose 106, calcium was 8.2. Her white cell count was 6900, hemoglobin 11.9, hematocrit 35, MCV 94 and platelet count of 281,000. ASSESSMENT: Alcohol withdrawal with nausea, vomiting and anxiety for which she took Isopropyl Alcohol. The patient developed acute kidney injury. Her creatinine is coming down to 2.1; lactic acidosis, resolved; hypokalemia. PLAN: My plan is to continue aggressive IV fluid replenishment and replenish her potassium. Continue with alcohol withdrawal protocol. Repeat her lab works tomorrow. LANCE SIMON MD DR: HECTOR/benedicto JOB#: [id number] / [id number]
[2017-04-03] MEDS: IV NORMAL SALINE 1,000ML 1,000 ML IV SCH ×2 (02:19→09:04)
[2017-04-03] MEDS: LORazepam 2 MG/ML VIAL IV PRN ×3 (02:49→16:32)
[2017-04-03 04:09] VITALS: BP 99/65
[2017-04-03 07:29] LABS: HEMATOCRIT 32.9 % (36.0-47.0); RED BLOOD COUNT 3.47 x10^6/uL (3.50-5.40); RED CELL DISTRIBUTION WIDTH 12.8 % (11.5-14.5); WHITE BLOOD COUNT 4.8 x10^3/uL (4.0-11.0)
[2017-04-03 07:53] LABS: ALBUMIN 2.9 g/dL (3.4-5.0); CREATININE 1.2 mg/dL (0.6-1.0); MAGNESIUM 1.9 mg/dL (1.8-2.4); POTASSIUM 3.4 mmol/L (3.5-5.1); TOTAL BILIRUBIN 0.3 mg/dL (0.2-1.0); TOTAL PROTEIN 5.7 g/dL (6.4-8.2)
[2017-04-03] MEDS ORDERED: FLUoxetine HCL 10 MG CAPSULE PO SCH (08:00)
[2017-04-03] MEDS: POTASSIUM CHLORIDE 20 MEQ TABLET.ER. PO SCH ×2 (08:27→13:35)
[2017-04-03] MEDS: LORazepam 1 MG TABLET PO SCH ×2 (08:27→13:34)
[2017-04-03 08:58] VITALS: BP 134/84
[2017-04-03] MEDS ORDERED: FLU VACC QS2017-18 (36MOS+)/PF 0.5 ML SYRINGE. VAX IM ONE (09:00)
[2017-04-03] MEDS ORDERED: PANTOPRAZOLE 40 MG TABLET. PO SCH (09:00)
[2017-04-03] MEDS ORDERED: TOPIRAMATE 100 MG TABLET. PO SCH (09:00)
[2017-04-03] MEDS ORDERED: MVI, ADULT NO.4 WITH VIT K 10 ML, FOLIC ACID 1 MG, THIAMINE 100 MG in IV DEXTROSE 5%-LA... IV SCH ×4 (09:00)
[2017-04-03 11:05] VITALS: BP 145/85
--- NOTE | 2017-04-03 18:46 | DS ---
DATE OF DISCHARGE: 04/03/2017 DISCHARGE SUMMARY HISTORY OF PRESENT ILLNESS: The patient is a 52-year-old female patient with a history of persistent alcohol abuse for almost 10 years. She has had intermittent episodes of alcohol cessation, the longest time was for about 10 months. She developed severe nausea and vomiting and tremors upon stopping alcohol use and therefore she drank some isopropyl alcohol on the day of admission and it was the only alcohol available in the house according to her and she was admitted with the alcohol withdrawal, nausea, vomiting, thrombocytosis, dehydration, acute kidney injury. In fact, her creatinine was 2.5 as well as hypokalemia. She was started on alcohol withdrawal protocol as well as IV fluid. She did have also lactic acidosis. Her kidney function has steadily improved and this morning, her creatinine is down to 1.2 from 2.5 and estimated GFR was up from 20 to 47, potassium has improved and a decision was made to discharge her home. PHYSICAL EXAMINATION: GENERAL: When I saw her this afternoon, she was resting flat, comfortably in bed, in no apparent respiratory distress. She was slightly pale, but no jaundice, cyanosis, or thyromegaly. No jugular venous distension. No lower limb edema. VITAL SIGNS: Her heart rate was 70, blood pressure 145/85, temperature was 98, respiratory rate 16, and oxygen saturation was 98% on room air. The rest of clinical examination is unremarkable. Her intake over the last 24 hours was 4500, output was 3700. LABORATORY DATA: As of this morning, her white cell count was 4800, hemoglobin 11, hematocrit 33, MCV 95 and platelet count 222,000. Her chemistry showed a serum sodium 144, potassium 3.4, chloride 109, bicarbonate 30, anion gap of 5, BUN 7, creatinine 1.2, estimated GFR was 47 mL per minute. Her glucose was 94, calcium was 8, magnesium was 1.9. Total bilirubin, AST, ALT, alkaline phosphatase were normal. Total protein was 5.7, albumin was 2.9. DISCHARGE MEDICATIONS: She was discharged home to continue on diazepam 5 mg 3 times a day as needed, fluoxetine for Prozac 10 mg daily, lorazepam 1 mg 3 times a day, naltrexone 50 mg at bedtime, Protonix 40 mg once a day, promethazine 25 mg as needed for nausea, Topiramate for Topamax 100 mg daily, trazodone 50 mg at bedtime. FINAL DISCHARGE DIAGNOSES: 1. Alcohol withdrawal. 2. Acute kidney injury, resolved. 3. Hypokalemia, resolved. 4. Lactic acidosis, resolved. LANCE SIMON MD DR: HECTOR/benedicto JOB#: [id number] / [id number]
== END 2017-04-03 17:58 | disposition home or self-care (01) | DRG 683 ==
LOC: ER 16:57 → ICU 19:37
PROVIDERS: ADMIT Internal Medicine; ATTEND Internal Medicine
DX: N17.9 Acute kidney failure, unspecified (principal); F10.239 Alcohol dependence with withdrawal, unspecified; E87.2 Acidosis; D47.3 Essential (hemorrhagic) thrombocythemia; E86.0 Dehydration; E87.6 Hypokalemia; F41.9 Anxiety disorder, unspecified; R73.9 Hyperglycemia, unspecified; F17.210 Nicotine dependence, cigarettes, uncomplicated; Z82.49 Family history of ischemic heart disease and other diseases of the circulatory system; Z90.49 Acquired absence of other specified parts of digestive tract
CPT/HCPCS: 36415; 74022; 80048; 80053; 80076; 80307; 81001; 82803; 83605; 83735; 85025; 85027; 85610; 85730; 87086; 87641; 90686; 93005; 96365; 96366; 96375; G0480; J2060; J2405; J2550; J7120; S0028; 99285-25; G0479; J7030

== ENCOUNTER 2017-09-12 04:52 | Inpatient (IN) | payer OTHER ==
[~2017-09-12] VITALS: Ht 170.2 cm; Wt 59.1 kg
[~2017-09-12 04:52] MED LIST changes: -CLON1TAB3 PO; +CLON1TAB4 PO; +LORA-254 PO; -LORA-434 PO; +TRAZ-85 PO; -TRAZ50TA15 PO
--- NOTE | 2017-09-12 04:58 | ED.ADGEN ---
Past History Past Medical History: Alcoholism, Other Past Surgical History: Cholecystectomy Alcohol Use: Heavy Drug Use: None Adult General Chief Complaint Chief Complaint "... I just drank too much today... and now I am vomiting.. and my stomach hurts... I usually only drink a little over a pint a day... but today ... I drank over liter of Scotch this afternoon or tonight... now I puking... I don't want in a program... just something to help with the nausea and vomiting... some IV fluids... " I know I am an alcoholic...".. " I just over did it today..." ..." When I get this bad before... I end up in the hospital getting a couple banana bags.. and schedule ativan.. and phenergan as needed..." HPI HPI Patient is a 52 year old female who presents with above hx. and hx of increased alcohol use. Pt. has nausea and vomiting tonight. Pt. currently vomiting food material and what smells like Scotch whiskey. Pt. localizes her abd. pain to epigastric area. Pt. insistent on not in patient ETOH withdrawal programs. Pt. denies trauma., travel, bad food or specific ill contacts. Pt. denies suicidal ideation. Pt. normally follows at [facility]. Review of Systems Review of Systems Constitutional: Denies fever or chills [] Eyes: Denies change in visual acuity, redness, or eye pain [] HENT: Denies nasal congestion or sore throat [] Respiratory: Denies cough or shortness of breath [] Cardiovascular: No additional information not addressed in HPI [] GI: Complaints of abdominal pain, nausea, vomiting. Denies, bloody stools or diarrhea [] : Denies dysuria or hematuria [] Musculoskeletal: Denies back pain or joint pain [] Integument: Denies rash or skin lesions [] Neurologic: Denies headache, focal weakness or sensory changes [] Endocrine: Denies polyuria or polydipsia [] All other systems were reviewed and found to be within normal limits, except as documented in this note. Family History Family History Non-contributory Current Medications Current Medications Current Medications Medications (Trade) Dose Ordered Sig/Master Start Time Stop Time Status Last Admin Dose Admin Dextrose 25 gm 1X ONCE 09/12/17 07:00 09/12/17 07:01 DC 09/12/17 06:54 25 GM Dextrose (Dextrose 25% Syringe) 10 ml 1X ONCE 09/12/17 06:45 09/12/17 06:45 DC Famotidine (Pepcid Vial) 20 mg 1X ONCE 09/12/17 05:15 09/12/17 05:16 DC 09/12/17 05:46 20 MG Famotidine (Pepcid) 20 mg BID 09/12/17 09:00 09/13/17 13:31 DC 09/13/17 09:30 20 MG Folic Acid (FOLIC ACID SYRINGE for ER) 5 mg STK-MED ONCE 09/12/17 05:33 09/12/17 05:34 DC Lactated Ringer's 1,000 ml @ 75 mls/hr [id number] 09/12/17 06:00 09/13/17 13:31 DC 09/12/17 17:51 75 MLS/HR Lorazepam (Ativan) 2 mg QID 09/12/17 09:00 09/13/17 13:31 DC 09/13/17 09:30 2 MG Magnesium Sulfate 50 ml @ 25 mls/hr 1X ONCE 09/12/17 06:00 09/12/17 07:59 DC 09/12/17 06:45 25 MLS/HR Multivitamins/ Minerals (Infuvite Adult) 10 ml STK-MED ONCE 09/12/17 05:33 09/12/17 05:34 DC Multivitamins/ Minerals 10 ml/ Folic Acid 1 mg/ Thiamine HCl 100 mg/Sodium Chloride 1,011.2 ml @ 0 mls/hr DAILY 09/12/17 09:00 09/12/17 12:46 DC Ondansetron HCl (Zofran) 4 mg PRN Q4HRS PRN 09/12/17 06:00 09/13/17 05:59 DC Thiamine HCl 200 mg STK-MED ONCE 09/12/17 05:32 09/12/17 05:33 DC Allergies Allergies Allergies Coded Allergies Type Severity Reaction Last Updated Verified No Known Drug Allergies 08/12/15 No Physical Exam Physical Exam Constitutional: Moderately acute distress, intoxicated in appearance. [] HENT: Normocephalic, atraumatic, bilateral external ears normal, oropharynx moist, no oral exudates, nose normal. [] Eyes: PERRLA, EOMI, conjunctiva normal, no discharge. [] Neck: Normal range of motion, no tenderness, supple, no stridor. [] Cardiovascular:Heart rate regular rhythm, no murmur [] Lungs & Thorax: Bilateral breath sounds clear to auscultation [] Abdomen: Bowel sounds normal, soft, epigastric tenderness, no masses, no pulsatile masses. [] Actively vomiting. Old surgery scars. Skin: Warm, dry, no erythema, no rash. [] Back: No tenderness, no CVA tenderness. [] Extremities: No tenderness, no cyanosis, no clubbing, ROM intact, no edema. [] Neurologic: Alert and oriented X 3, normal motor function, normal sensory function, no focal deficits noted. DTR + 2, wide gait and mild discoordinated. Is ambulatory without assistance. Psychologic: Affect anxious, mood depressed. Current Patient Data Vital Signs Vital Signs Date Time Temp Pulse Resp B/P (MAP) Pulse Ox O2 Delivery O2 Flow Rate FiO2 09/12/17 11:34 79 18 109/61 (77) 96 Room Air 09/12/17 04:52 97.6 Lab Results Laboratory Tests Test 09/12/17 05:09 09/12/17 05:25 Urine Collection Type Unknown Urine Color Yellow Urine Clarity Clear Urine pH 5.5 Urine Specific [place] >=1.030 Urine Protein 30 mg/dl (NEG-TRACE) Urine Glucose (UA) Neg mg/dL (NEG) Urine Ketones (Stick) >=160 mg/dL (NEG) Urine Blood Neg (NEG) Urine Nitrite Neg (NEG) Urine Bilirubin Neg (NEG) Urine Urobilinogen Dipstick 0.2 mg/dL (0.2 mg/dL) Urine Leukocyte Esterase Neg (NEG) Urine RBC 0 /HPF (0-2) Urine WBC Rare /HPF (0-4) Urine Squamous Epithelial Cells Occ /LPF Urine Bacteria 0 /HPF (0-FEW) Urine Opiates Screen Neg (NEG) Urine Methadone Screen Neg (NEG) Urine Barbiturates Neg (NEG) Urine Phencyclidine Screen Neg (NEG) Urine Amphetamine/Methamphetamine Neg (NEG) Urine Benzodiazepines Screen Neg (NEG) Urine Cocaine Screen Neg (NEG) Urine Cannabinoids Screen Neg (NEG) Urine Ethyl Alcohol Pos (NEG) White Blood Count 14.5 x10^3/uL (4.0-11.0) H Red Blood Count 4.75 x10^6/uL (3.50-5.40) Hemoglobin 14.7 g/dL (12.0-15.5) Hematocrit 43.7 % (36.0-47.0) Mean Corpuscular Volume 92 fL (79-100) Mean Corpuscular Hemoglobin 31 pg (25-35) Mean Corpuscular Hemoglobin Concent 34 g/dL (31-37) Red Cell Distribution Width 12.6 % (11.5-14.5) Platelet Count 317 x10^3/uL (140-400) Neutrophils (%) (Auto) 71 % (31-73) Lymphocytes (%) (Auto) 25 % (24-48) Monocytes (%) (Auto) 3 % (0-9) Eosinophils (%) (Auto) 0 % (0-3) Basophils (%) (Auto) 1 % (0-3) Neutrophils # (Auto) 10.3 x10^3uL (1.8-7.7) H Lymphocytes # (Auto) 3.7 x10^3/uL (1.0-4.8) Monocytes # (Auto) 0.4 x10^3/uL (0.0-1.1) Eosinophils # (Auto) 0.0 x10^3/uL (0.0-0.7) Basophils # (Auto) 0.1 x10^3/uL (0.0-0.2) Prothrombin Time 9.6 SEC (9.4-11.4) Prothrombin Time INR 0.9 (0.9-1.1) PTT 22 SEC (23-33) L Sodium Level 141 mmol/L (136-145) Potassium Level 3.6 mmol/L (3.5-5.1) Chloride Level 104 mmol/L (98-107) Carbon Dioxide Level 23 mmol/L (21-32) Anion Gap 14 (6-14) Blood Urea Nitrogen 21 mg/dL (7-20) H Creatinine 0.8 mg/dL (0.6-1.0) Estimated GFR (Cockcroft-Gault) 75.0 Glucose Level 56 mg/dL (70-99) L Calcium Level 8.5 mg/dL (8.5-10.1) Magnesium Level 2.0 mg/dL (1.8-2.4) Troponin I Quantitative < 0.017 ng/mL (0-0.055) LF-Olr-V-Type Natriuretic Peptide 42 pg/mL (0-124) Ethyl Alcohol Level 226 mg/dL (0-10) H EKG EKG I interpretation EKG shows a sinus rhythm at 99 bpm. No acute morphology.[] Radiology/Procedures Radiology/Procedures Interpretation of abdomen film shows no free air in the diaphragm. Does have clips from prior surgery and right upper quadrant abdomen. Some hyperexpansion along. Mild scoliosis.[] Course & Med Decision Making Course & Med Decision Making Pertinent Labs and Imaging studies reviewed. (See chart for details) Discussed presentation, testing and tx. plan with Dr. Ybarra. [] Final Impression Final Impression 1. Alcoholic Abuse 2. Nausea and Vomiting. [] 3. Hx. of ETOH withdrawal. 4. Leukocytosis 5. Dehydration 6. Hypoglycemia Dragon Disclaimer Dragon Disclaimer This electronic medical record was generated, in whole or in part, using a voice recognition dictation system. TIFFANY LIN MD Sep 12, 2017 04:58
[2017-09-12] MEDS ORDERED: MVI, ADULT NO.4 WITH VIT K 10 ML, FOLIC ACID 1 MG, THIAMINE 100 MG in IV NORMAL SALINE ... IV ONE ×4 (05:15)
[2017-09-12] MEDS ORDERED: FAMOTIDINE 20 MG/2 ML VIAL IVP ONE (05:15)
[2017-09-12] MEDS ORDERED: ONDANSETRON PF 4 MG/2 ML VIAL. IV ONE (05:15)
[2017-09-12 05:32] LABS: BILIRUBIN,URINE NEG (NEG); CLARITY,URINE CLEAR; COLOR,URINE YELLOW; GLUCOSE,URINE NEG (NEG); NITRITE,URINE NEG (NEG); UROBILINOGEN,URINE 0.2 mg/dL (0.2 mg/dL)
[2017-09-12] MEDS ORDERED: THIAMINE 200 MG/2 ML VIAL. IV ONE (05:32)
[2017-09-12 05:33] LABS: BACTERIA,URINE 0 /HPF (0-FEW); BARBITURATES NEG (NEG); BENZODIAZEPINES NEG (NEG); CANNABINOIDS NEG (NEG); COCAINE NEG (NEG); METHADONE NEG (NEG); OPIATES NEG (NEG); PHENCYCLIDINE NEG (NEG); RBC,URINE 0 /HPF (0-2); SQUAMOUS EPITHELIAL CELL,UR OCC /LPF; WBC,URINE RARE /HPF (0-4)
[2017-09-12] MEDS ORDERED: MVI, ADULT NO.4 WITH VIT K 10 ML VIAL IV ONE (05:33)
[2017-09-12] MEDS ORDERED: FOLIC ACID 5 MG/ML SYRINGE for ER IV ONE (05:33)
[2017-09-12 05:35] LABS: AMPHETAMINE/METHAMPHETAMINE NEG (NEG)
[2017-09-12 05:41] LABS: BASO # 0.1 x10^3/uL (0.0-0.2); BASO % 1 % (0-3); EOS % 0 % (0-3); HEMATOCRIT 43.7 % (36.0-47.0); HEMOGLOBIN 14.7 g/dL (12.0-15.5); LYMPH # 3.7 x10^3/uL (1.0-4.8); LYMPH % 25 % (24-48); MEAN CORPUSCULAR HEMOGLOBIN 31 pg (25-35); MEAN CORPUSCULAR HGB CONC 34 g/dL (31-37); MEAN CORPUSCULAR VOLUME 92 fL (79-100); MONO # 0.4 x10^3/uL (0.0-1.1); MONO % 3 % (0-9); NEUT # 10.3 x10^3uL (1.8-7.7); NEUT % 71 % (31-73); PLATELET COUNT 317 x10^3/uL (140-400); RED BLOOD COUNT 4.75 x10^6/uL (3.50-5.40); RED CELL DISTRIBUTION WIDTH 12.6 % (11.5-14.5); WHITE BLOOD COUNT 14.5 x10^3/uL (4.0-11.0)
[2017-09-12 05:59] LABS: CALCIUM 8.5 mg/dL (8.5-10.1); CREATININE 0.8 mg/dL (0.6-1.0); POTASSIUM 3.6 mmol/L (3.5-5.1)
[2017-09-12] MEDS ORDERED: ONDANSETRON PF 4 MG/2 ML VIAL. IV PRN (06:00)
[2017-09-12] MEDS ORDERED: LORazepam 2 MG/ML VIAL IV PRN ×3 (06:00→16:45)
[2017-09-12] MEDS ORDERED: MAGNESIUM SULFATE 2GM 50 ML IV ONE (06:00)
--- NOTE | 2017-09-12 06:10 | RAD ---
Three-view acute abdominal series. HISTORY: Nausea, vomiting, abdominal pain 3 views were taken for an acute abdominal series. Lungs are clear. Heart is normal in size. There is no effusion. Patient's had a cholecystectomy. There is no free air on the upright view. There are no abnormal air-fluid levels. There is mild scoliosis. There are multiple phleboliths in the pelvis. There is no bowel obstruction. IMPRESSION: 1. No acute chest disease. 2. No bowel obstruction or acute finding in the abdomen. Electronically signed by: Rocky Mccray MD (09/12/2017 6:07 AM) [facility]
[2017-09-12] MEDS ORDERED: DEXTROSE 50% 25 GM / 50ML DISP.SYRIN. IV ONE ×2 (06:27→07:00)
[2017-09-12] MEDS: IV RINGERS SOLUTION,LACTATED 1,000 ML IV SCH ×3 (06:36→19:18)
[2017-09-12] MEDS ORDERED: DEXTROSE 25% 10 ML DISP.SYRIN. IV ONE (06:45)
[2017-09-12] MEDS ORDERED: MVI, ADULT NO.4 WITH VIT K 10 ML, FOLIC ACID 1 MG, THIAMINE 100 MG in IV NORMAL SALINE ... IV SCH ×4 (09:00)
[2017-09-12] MEDS: FAMOTIDINE 20 MG TABLET PO SCH ×2 (09:24→19:58)
[2017-09-12] MEDS: LORazepam 1 MG TABLET PO SCH ×4 (09:24→19:57)
[2017-09-12 13:26] VITALS: BP 116/75
[2017-09-12] MEDS ORDERED: ESCITALOPRAM OX10 MG PO (15:04)
[2017-09-12] MEDS ORDERED: TRAZ150T49 PO (15:04)
[2017-09-12] MEDS ORDERED: DISU250T15 PO (15:04)
[2017-09-12] MEDS ORDERED: HALOPERIDOL LACT 5 MG/ML VIAL. IM PRN (16:45)
[2017-09-12] MEDS ORDERED: LORazepam 1 MG TABLET PO PRN (16:45)
[2017-09-12] MEDS ORDERED: chlordiazePOXIDE HCL 25 MG CAPSULE PO PRN ×2 (16:45)
[2017-09-12] MEDS ORDERED: diphenhydrAMINE 50 MG/ML VIAL IVP PRN (16:45)
[2017-09-12 19:05] VITALS: BP 110/71
[2017-09-12] MEDS ORDERED: traZODone 150 MG TABLET. PO SCH (21:00)
[2017-09-13 00:13] VITALS: BP 111/71
--- NOTE | 2017-09-13 00:47 | HP ---
ADMIT DATE: 09/12/2017 HISTORY OF PRESENT ILLNESS: The patient is a 52-year-old female patient, who came to the Emergency Room with a chief complaint of basically relapse of her drinking. She stated that she drank too much today and she came complaining of nausea, vomiting, and abdominal pain. She normally drinks a little over a pint a day but today, she drank over a liter of scotch on the afternoon and last night. She does not want to go to any programs; however, she wants to help her nausea and vomiting with some IV fluid. She said that she just over did it today. She apparently was in detoxification program, she came out about 5 months ago and has been sober up until this time yesterday when apparently had a problem with her . PAST MEDICAL HISTORY: Significant for depression, anxiety, and obviously alcoholism. PAST SURGICAL HISTORY: Significant for cholecystectomy and esophagogastroduodenoscopy. ALLERGIES: She has no known drug allergies. MEDICATIONS: She is currently on the following medications: She is on Lexapro 10 mg once a day, trazodone 150 mg at bedtime, disulfiram ____ mg p.o. daily. She is also on Latuda, although I do not have the dose for that. FAMILY HISTORY: Unremarkable. SOCIAL HISTORY: She is , has 2 sons and 1 daughter. She smokes occasionally. She has been sober for 5 months. 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 REVIEW OF SYSTEMS: As per history of present illness. PHYSICAL EXAMINATION GENERAL: When I examined her, she was resting slightly propped up in bed, in no apparent respiratory distress. No pallor, jaundice, cyanosis, or thyromegaly. No jugular venous distension. No limb edema. VITAL SIGNS: His heart rate was 76, blood pressure was 116/75, temperature was 97.6, respiratory rate 20, and oxygen saturation was 97% on room air. HEAD, EYES, EARS, NOSE, and THROAT: Normocephalic, atraumatic. NECK: Supple. HEART: Showed normal first and second heart sounds. No gallop, rub or murmur. CHEST: Clear to auscultation. No crepitation or rhonchi. ABDOMEN: Scaphoid, soft, and nontender. NEUROLOGIC: She is awake, alert, oriented in time, place and person. Her cranial nerves intact. EXTREMITIES: She moves extremities without difficulty. She ambulates without assistance or assistive devices. LABORATORY DATA: By the time I saw her, she was actually investigated in the Emergency Room and her CBC showed a white cell count of 14,500, hemoglobin 14.7, hematocrit 44, MCV 92, and platelet count 317,000. Her chemistry showed a serum sodium of 141, potassium 3.6, chloride 104, bicarbonate 23, anion gap of 14, BUN 21, creatinine 0.8, estimated GFR was 75 mL per minute, her glucose was 156, calcium was 8.5, magnesium 2 and beta-natriuretic peptide was 42. Her prothrombin time was 9.6, INR of 0.9, and aPTT was 22. Urinalysis showed the urine was yellow, clear with a pH of 5.5, specific gravity of 1.030. There was mild trace of protein, large amount of ketones, negative for glucose, blood, nitrites and leukocyte esterase. Her toxic screen showed that her blood alcohol level was high at 226 mg and negative for other medication. Her acute abdomen series showed no acute chest disease, no bowel obstruction or acute finding in the abdomen. ASSESSMENT AND PLAN: The patient was admitted with acute alcohol intoxication. By the time I saw her, the patient was DICTATION ENDS HERE LANCE SIMON MD DR: HECTOR/benedicto JOB#: [id number] / [id number]
[2017-09-13 06:30] VITALS: BP 106/67
[2017-09-13 06:49] LABS: BASO % 0 % (0-3); EOS # 0.1 x10^3/uL (0.0-0.7); EOS % 1 % (0-3); HEMATOCRIT 35.2 % (36.0-47.0); LYMPH # 1.6 x10^3/uL (1.0-4.8); LYMPH % 27 % (24-48); MEAN CORPUSCULAR HEMOGLOBIN 31 pg (25-35); MEAN CORPUSCULAR HGB CONC 34 g/dL (31-37); MEAN CORPUSCULAR VOLUME 90 fL (79-100); MONO # 0.5 x10^3/uL (0.0-1.1); MONO % 8 % (0-9); NEUT # 3.9 x10^3uL (1.8-7.7); NEUT % 64 % (31-73); PLATELET COUNT 212 x10^3/uL (140-400); RED CELL DISTRIBUTION WIDTH 12.6 % (11.5-14.5)
[2017-09-13 07:06] LABS: ALBUMIN 2.7 g/dL (3.4-5.0); ALBUMIN/GLOBULIN RATIO 0.9 (1.0-1.7); CALCIUM 8.3 mg/dL (8.5-10.1); CREATININE 0.8 mg/dL (0.6-1.0); MAGNESIUM 1.8 mg/dL (1.8-2.4); POTASSIUM 4.1 mmol/L (3.5-5.1); TOTAL BILIRUBIN 0.9 mg/dL (0.2-1.0); TOTAL PROTEIN 5.6 g/dL (6.4-8.2)
[2017-09-13] MEDS ORDERED: THIAMINE IM 200 MG/2 ML VIAL. IM SCH (09:00)
[2017-09-13] MEDS ORDERED: NON FORMULARY ITEM (Escitalopram Oxalate 1 TAB) PO SCH (09:00)
[2017-09-13] MEDS ORDERED: MULTIVITAMIN with MINERAL TABLET. PO SCH (09:00)
[2017-09-13] MEDS ORDERED: FOLIC ACID 1 MG TABLET PO SCH (09:00)
[2017-09-13] MEDS ORDERED: MVI, ADULT NO.4 WITH VIT K 10 ML, THIAMINE 100 MG, FOLIC ACID 1 MG in IV NORMAL SALINE ... IV SCH ×4 (09:00)
[2017-09-13] MEDS ORDERED: MVI, ADULT NO.4 WITH VIT K 10 ML, FOLIC ACID 1 MG, THIAMINE 100 MG in IV NORMAL SALINE ... IV SCH ×4 (09:00)
[2017-09-13] MEDS ORDERED: DISULFIRAM 250 MG PO SCH (09:00)
[2017-09-13] MEDS ORDERED: CITALOPRAM 20 MG TABLET. PO SCH (09:00)
[2017-09-13] MEDS: FAMOTIDINE 20 MG TABLET PO SCH (09:30)
[2017-09-13] MEDS: LORazepam 1 MG TABLET PO SCH (09:30)
[2017-09-13 11:29] VITALS: BP 115/75
--- NOTE | 2017-09-13 13:43 | PDOC1 ---
History of Present Illness History of Present Illness 52-year-old female with history of alcoholism has been sober from alcohol for 5 months until drinking a pint of scotch whiskey yesterday. She presented to the emergency department with abdominal pain nausea and vomiting and was found to be intoxicated with an alcohol level of 226. She was admitted to the medical floor to monitor for withdrawal symptoms and to control her nausea and vomiting as well as provide IV hydration. Nursing reports that the patient has not shown any evidence of withdrawal symptoms overnight, her nausea and vomiting have resolved. She has been ambulatory with a normal gait and normal vital signs. On my evaluation I find her to be sitting up in bed smiling. She is embarrassed of her relapse and expresses regret. She denies any current complaints and is requesting discharge home. Chief Complaint: ALCOHOL INTOXICATION Allergies: Coded Allergies: No Known Drug Allergies (Unverified , 08/12/15) Review of Systems Review Of Systems Fourteen system , review of systems has been reviewed. See HPI for pertinent positives and negative responses, other calderon all other systems are negative, non pertinent or non contributory Medications Current Medications Multivitamins/ Minerals 10 ml/ Folic Acid 1 mg/ Thiamine HCl 100 mg/Sodium Chloride 1,011.2 ml @ 0 mls/hr 1X ONCE IV Last administered on 09/12/17at 05: 45; Start 09/12/17 at 05:15; Stop 09/12/17 at 05:17; Status DC Famotidine (Pepcid Vial) 20 mg 1X ONCE IVP Last administered on 09/12/17at 05: 46; Start 09/12/17 at 05:15; Stop 09/12/17 at 05:16; Status DC Ondansetron HCl (Zofran) 8 mg 1X ONCE IV Last administered on 09/12/17at 05:46 ; Start 09/12/17 at 05:15; Stop 09/12/17 at 05:16; Status DC Thiamine HCl 200 mg STK-MED ONCE IV ; Start 09/12/17 at 05:32; Stop 09/12/17 at 05:33; Status DC Multivitamins/ Minerals (Infuvite Adult) 10 ml STK-MED ONCE IV ; Start 09/12/17 at 05:33; Stop 09/12/17 at 05:34; Status DC Folic Acid (FOLIC ACID SYRINGE for ER) 5 mg STK-MED ONCE IV ; Start 09/12/17 at 05:33; Stop 09/12/17 at 05:34; Status DC Ondansetron HCl (Zofran) 4 mg PRN Q4HRS PRN IV NAUSEA/VOMITING; Start 09/12/17 at 06:00; Stop 09/13/17 at 05:59; Status DC Multivitamins/ Minerals 10 ml/ Folic Acid 1 mg/ Thiamine HCl 100 mg/Sodium Chloride 1,011.2 ml @ 0 mls/hr DAILY IV ; Start 09/12/17 at 09:00; Stop at 12:46; Status DC Famotidine (Pepcid) 20 mg BID PO Last administered on 09/13/17at 09:30; Start at 09:00; Stop 09/13/17 at 13:31; Status DC Lactated Ringer's 1,000 ml @ 75 mls/hr [id number] IV Last administered on at 17:51; Start 09/12/17 at 06:00; Stop 09/13/17 at 13:31; Status DC Lorazepam (Ativan) 2 mg PRN 1X PRN IV seizure; Start 09/12/17 at 06:00; Stop at 13:31; Status DC Lorazepam (Ativan) 2 mg QID PO Last administered on 09/13/17at 09:30; Start at 09:00; Stop 09/13/17 at 13:31; Status DC Magnesium Sulfate 50 ml @ 25 mls/hr 1X ONCE IV Last administered on 09/12/17at 06:45; Start 09/12/17 at 06:00; Stop 09/12/17 at 07:59; Status DC Dextrose (Dextrose 25% Syringe) 10 ml 1X ONCE IV ; Start 09/12/17 at 06:45; Stop 09/12/17 at 06:45; Status DC Dextrose 25 gm STK-MED ONCE IV ; Start 09/12/17 at 06:27; Stop 09/12/17 at 06:28 ; Status DC Dextrose 25 gm 1X ONCE IV Last administered on 09/12/17at 06:54; Start at 07:00; Stop 09/12/17 at 07:01; Status DC Multivitamins/ Minerals 10 ml/ Folic Acid 1 mg/ Thiamine HCl 100 mg/Sodium Chloride 1,011.2 ml @ 0 mls/hr DAILY IV ; Start 09/13/17 at 09:00; Stop at 09:00; Status DC Non-Formulary Medication (Disulfiram (Antabuse)) 250 mg DAILY PO ; Start at 09:00; Stop 09/13/17 at 13:31; Status DC Non-Formulary Medication (Escitalopram Oxalate ) 1 tab DAILY PO ; Start at 09:00; Stop 09/13/17 at 09:00; Status DC Trazodone HCl (Desyrel) 150 mg QHS PO Last administered on 09/12/17at 19:57; Start 09/12/17 at 21:00; Stop 09/13/17 at 13:31; Status DC Multivitamins/ Minerals 10 ml/ Thiamine HCl 100 mg/Folic Acid 1 mg/Sodium Chloride 1,011.2 ml @ 100 mls/ hr DAILY IV Last administered on 09/13/17at 09: 30; Start 09/13/17 at 09:00; Stop 09/13/17 at 13:31; Status DC Multivitamins/ Calcium (Thera-M Plus) 1 tab DAILY PO Last administered on at 09:30; Start 09/13/17 at 09:00; Stop 09/13/17 at 13:31; Status DC Folic Acid (Folic Acid) 1 mg DAILY PO Last administered on 09/13/17at 09:31; Start 09/13/17 at 09:00; Stop 09/13/17 at 13:31; Status DC Thiamine HCl (Thiamine Im) 100 mg DAILY IM ; Start 09/13/17 at 09:00; Stop 09/13 at 13:31; Status DC Chlordiazepoxide (Librium) 50 mg PRN Q1HR PRN PO For CIWA 8-14; Start 09/12/17 at 16:45; Stop 09/13/17 at 13:31; Status DC Chlordiazepoxide (Librium) 100 mg PRN Q1HR PRN PO For CIWA 15 or greater; Start 09/12/17 at 16:45; Stop 09/13/17 at 13:31; Status DC Lorazepam (Ativan) 4 mg PRN Q1HR PRN PO For CIWA 8-14; Start 09/12/17 at 16:45 ; Stop 09/13/17 at 13:31; Status DC Lorazepam (Ativan) 2 mg PRN Q1HR PRN IV For CIWA 8-14; Start 09/12/17 at 16:45 ; Stop 09/13/17 at 13:31; Status DC Haloperidol Lactate (Haldol) 5 mg PRN Q4HRS PRN IM Hallucinatns,Confusn, Delirium; Start 09/12/17 at 16:45; Stop 09/13/17 at 13:31; Status DC Diphenhydramine HCl (Benadryl) 25 mg PRN Q15MIN PRN IVP EPS symptoms 2'Haldol admin; Start 09/12/17 at 16:45; Stop 09/13/17 at 13:31; Status DC Lorazepam (Ativan) 2 mg PRN Q15MIN PRN IV ALCOHOL WITHDRAWAL TREATMENT; Start 09/12/17 at 16:45; Stop 09/13/17 at 13:31; Status DC Citalopram Hydrobromide (CeleXA) 20 mg DAILY PO Last administered on 09/13/17at 09:30; Start 09/13/17 at 09:00; Stop 09/13/17 at 13:31; Status DC Active Scripts Active Reported Antabuse (Disulfiram) 250 Mg Tablet 250 Mg PO DAILY NOT GIVEN IN THE HOSPITAL NEXT DOSE DUE: DATE: RESTART TOMORROW TIME: AM Escitalopram Oxalate 10 Mg Tablet 1 Tab PO DAILY LAST DOSE GIVEN: DATE: TODAY TIME: AM NEXT DOSE DUE: DATE: TOMORROW TIME: AM Trazodone Hcl 150 Mg Tablet 1 Tab PO QHS LAST DOSE GIVEN: DATE: YESTERDAY TIME: AT BEDTIME NEXT DOSE DUE: DATE: TODAY TIME: ART BEDTIME Exam Vital Signs Vital Signs Date Time Temp Pulse Resp B/P (MAP) Pulse Ox O2 Delivery O2 Flow Rate FiO2 09/13/17 11:29 98.4 72 115/75 (88) 97 Room Air 09/13/17 06:30 20 General Appearance: Alert, Oriented X3, Cooperative, No acute distress HEENT: Atraumatic, PERRLA (no scleral icterus), EOMI, Mucous membr. moist/pink Respiratory: Clear to auscultation, Normal air movement Heart: Regular rate, No murmurs Abdominal: Normal bowel sounds, Soft, No tenderness, No hepatospenomegaly Extremities: No clubbing, No cyanosis, No edema, Normal pulses Neuro: Normal speech, Strength at 5/5 X4 ext, Sensation intact, Cranial nerves 3-12 NL, Other (no tremor or pronator drift) Psych/Mental Status: Mental status NL, Mood NL Assessment/Plan Assessment/Plan Alcohol intoxication Abdominal pain with nausea and vomiting secondary to above History of alcoholism COURSE Allergies Coded Allergies Type Severity Reaction Last Updated Verified No Known Drug Allergies 08/12/15 No Laboratory Tests Test 09/13/17 06:13 White Blood Count 6.0 x10^3/uL (4.0-11.0) Red Blood Count 3.90 x10^6/uL (3.50-5.40) Hemoglobin 12.0 g/dL (12.0-15.5) Hematocrit 35.2 % (36.0-47.0) Mean Corpuscular Volume 90 fL (79-100) Mean Corpuscular Hemoglobin 31 pg (25-35) Mean Corpuscular Hemoglobin Concent 34 g/dL (31-37) Red Cell Distribution Width 12.6 % (11.5-14.5) Platelet Count 212 x10^3/uL (140-400) Neutrophils (%) (Auto) 64 % (31-73) Lymphocytes (%) (Auto) 27 % (24-48) Monocytes (%) (Auto) 8 % (0-9) Eosinophils (%) (Auto) 1 % (0-3) Basophils (%) (Auto) 0 % (0-3) Neutrophils # (Auto) 3.9 x10^3uL (1.8-7.7) Lymphocytes # (Auto) 1.6 x10^3/uL (1.0-4.8) Monocytes # (Auto) 0.5 x10^3/uL (0.0-1.1) Eosinophils # (Auto) 0.1 x10^3/uL (0.0-0.7) Basophils # (Auto) 0.0 x10^3/uL (0.0-0.2) Sodium Level 139 mmol/L (136-145) Potassium Level 4.1 mmol/L (3.5-5.1) Chloride Level 104 mmol/L (98-107) Carbon Dioxide Level 29 mmol/L (21-32) Anion Gap 6 (6-14) Blood Urea Nitrogen 10 mg/dL (7-20) Creatinine 0.8 mg/dL (0.6-1.0) Estimated GFR (Cockcroft-Gault) 75.0 BUN/Creatinine Ratio 13 (6-20) Glucose Level 79 mg/dL (70-99) Calcium Level 8.3 mg/dL (8.5-10.1) Magnesium Level 1.8 mg/dL (1.8-2.4) Total Bilirubin 0.9 mg/dL (0.2-1.0) Aspartate Amino Transf (AST/SGOT) 30 U/L (15-37) Alanine Aminotransferase (ALT/SGPT) 24 U/L (14-59) Alkaline Phosphatase 80 U/L (46-116) Total Protein 5.6 g/dL (6.4-8.2) Albumin 2.7 g/dL (3.4-5.0) Albumin/Globulin Ratio 0.9 (1.0-1.7) Current Medications Medications (Trade) Dose Ordered Sig/Master Route PRN Reason Start Time Stop Time Status Last Admin Dose Admin Multivitamins/ Minerals 10 ml/ Folic Acid 1 mg/ Thiamine HCl 100 mg/Sodium Chloride 1,011.2 ml @ 0 mls/hr DAILY IV 09/13/17 09:00 09/13/17 09:00 DC Non-Formulary Medication (Disulfiram (Antabuse)) 250 mg DAILY PO 09/13/17 09:00 09/13/17 13:31 DC Non-Formulary Medication (Escitalopram Oxalate ) 1 tab DAILY PO 09/13/17 09:00 09/13/17 09:00 DC Trazodone HCl (Desyrel) 150 mg QHS PO 09/12/17 21:00 09/13/17 13:31 DC 09/12/17 19:57 Multivitamins/ Minerals 10 ml/ Thiamine HCl 100 mg/Folic Acid 1 mg/Sodium Chloride 1,011.2 ml @ 100 mls/ hr DAILY IV 09/13/17 09:00 09/13/17 13:31 DC 09/13/17 09:30 Multivitamins/ Calcium (Thera-M Plus) 1 tab DAILY PO 09/13/17 09:00 09/13/17 13:31 DC 09/13/17 09:30 Folic Acid (Folic Acid) 1 mg DAILY PO 09/13/17 09:00 09/13/17 13:31 DC 09/13/17 09:31 Thiamine HCl (Thiamine Im) 100 mg DAILY IM 09/13/17 09:00 09/13/17 13:31 DC Chlordiazepoxide (Librium) 50 mg PRN Q1HR PRN PO For CIWA 8-14 09/12/17 16:45 09/13/17 13:31 DC Chlordiazepoxide (Librium) 100 mg PRN Q1HR PRN PO For CIWA 15 or greater 09/12/17 16:45 09/13/17 13:31 DC Lorazepam (Ativan) 4 mg PRN Q1HR PRN PO For CIWA 8-14 09/12/17 16:45 09/13/17 13:31 DC Lorazepam (Ativan) 2 mg PRN Q1HR PRN IV For CIWA 8-14 09/12/17 16:45 09/13/17 13:31 DC Haloperidol Lactate (Haldol) 5 mg PRN Q4HRS PRN IM Hallucinatns,Confusn,Delirium 09/12/17 16:45 09/13/17 13:31 DC Diphenhydramine HCl (Benadryl) 25 mg PRN Q15MIN PRN IVP EPS symptoms 2'Haldol admin 09/12/17 16:45 09/13/17 13:31 DC Lorazepam (Ativan) 2 mg PRN Q15MIN PRN IV ALCOHOL WITHDRAWAL TREATMENT 09/12/17 16:45 09/13/17 13:31 DC Citalopram Hydrobromide (CeleXA) 20 mg DAILY PO 09/13/17 09:00 09/13/17 13:31 DC 09/13/17 09:30 I & O 09/13/17 00:00 Intake Total 2501 ml Balance 2501 ml Orders Procedure Category Date Status Time Admit Orders ADT 09/12/17 Transmitted Case Management CM1 09/13/17 Transmitted Referral 07:00 Admission Screening CONS 09/12/17 Transmitted 14:58 Smoking Cessation RT 09/12/17 Complete 3-10 Min 14:58 (Nf) Disulfiram PHA 09/13/17 Complete (Antabuse) 09:00 (Nf) Escitalopram PHA 09/13/17 Complete Oxalate 09:00 Trazodone (Desyrel) PHA 09/12/17 Complete 21:00 Mvi, Adult No.4 With PHA 09/13/17 Complete Vit K (Infuvite Pj 09:00 Multivitamin With PHA 09/13/17 Complete Mineral (Thera-M Plus) 09:00 Folic Acid (Folic PHA 09/13/17 Complete Acid) 09:00 Thiamine Im (Thiamine PHA 09/13/17 Complete Im) 09:00 Chlordiazepoxide Hcl PHA 09/12/17 Complete (Librium) 16:45 Chlordiazepoxide Hcl PHA 09/12/17 Complete (Librium) 16:45 Lorazepam (Ativan) PHA 09/12/17 Complete 16:45 Lorazepam (Ativan) PHA 09/12/17 Complete 16:45 Haloperidol Lact PHA 09/12/17 Complete (Haldol) 16:45 Diphenhydramine PHA 09/12/17 Complete (Benadryl) 16:45 Lorazepam (Ativan) PHA 09/12/17 Complete 16:45 Vital Signs, Per ZORAIDA 09/12/17 Complete Protocol 16:39 Comprehensive LAB 09/13/17 Complete Metabolic Panel 05:00 Magnesium LAB 09/13/17 Complete 05:00 Citalopram (Celexa) PHA 09/13/17 Complete 09:00 Regular DIET 09/13/17 Complete Breakfast Discharge From ADT 09/13/17 Transmitted Hospital Vital Signs Date Time Temp Pulse Resp B/P (MAP) Pulse Ox O2 Delivery O2 Flow Rate FiO2 09/13/17 11:29 98.4 72 115/75 (88) 97 Room Air 09/13/17 06:30 20 SAVI CAMARILLO DO Sep 13, 2017 13:43
== END 2017-09-13 13:27 | disposition home or self-care (01) | DRG 640 ==
LOC: ER 04:52 → ICU 12:09 → 1 SOUTH 12:47
PROVIDERS: ADMIT Internal Medicine; ATTEND Internal Medicine
DX: E86.0 Dehydration (principal); E43 Unspecified severe protein-calorie malnutrition; E16.2 Hypoglycemia, unspecified; F41.9 Anxiety disorder, unspecified; F10.229 Alcohol dependence with intoxication, unspecified; F17.200 Nicotine dependence, unspecified, uncomplicated; Y90.7 Blood alcohol level of 200-239 mg/100 ml; D72.829 Elevated white blood cell count, unspecified; F32.9 Major depressive disorder, single episode, unspecified; Z90.49 Acquired absence of other specified parts of digestive tract
CPT/HCPCS: 36415; 74022; 80048; 80053; 80307; 81001; 83735; 83880; 84484; 85025; 85610; 85730; 96365; 96366; 96367; 96375; 99406; G0238; G0480; J2405; J3475; J7120; S0028; 99285-25; G0479; J7030

== ENCOUNTER 2017-09-15 20:50 | Inpatient (IN) | payer OTHER ==
[~2017-09-15] VITALS: Ht 170.2 cm; Wt 59.2 kg
[~2017-09-15 20:50] MED LIST changes: +DISU250T15 PO; +ESCITALOPRAM OX10 MG PO; +TRAZ150T49 PO
--- NOTE | 2017-09-15 21:05 | ED.ADGEN ---
Past History Past Medical History: Alcoholism, Pancreatitis, Other Past Surgical History: Cholecystectomy Alcohol Use: Heavy Drug Use: None Adult General Chief Complaint Chief Complaint ".. I don't know... I just can't quit.. I am really hurting...to night.. " HPI HPI Patient is a 52 year old female who presents with nausea, vomiting and abd. pain after binge drinking of alcohol. Patient previously admitted for acute alcohol intoxication. Patient last admitted on09/12-09/13. Patient was discharged but started drinking again heavily.. Pt. has history of chronic alcohol abuse periodic episodes of sobriety. Patient reportedly consumed 1/5th whiskey tonight. Patient actively vomiting and dry heaves. Patient localizes pain to epigastric and umbilicus. Patient does have rebound pain. Patient does not know where she got alcohol for consumption tonight. Pt. has had period of sobriety after an admission to [facility] per pt. and . . Pt. was on Anti-buse, Disulfiram .The pt remained off alcohol while taking Disulfiram for more than 5 month. When pt . stopped Disulfiram eventually resumed ETOH abuse. Pt. and state that this tx. was the most successful for her. Review of Systems Review of Systems Constitutional: Denies fever or chills [] Eyes: Denies change in visual acuity, redness, or eye pain [] HENT: Denies nasal congestion or sore throat [] Respiratory: Denies cough or shortness of breath [] Cardiovascular: No additional information not addressed in HPI [] GI: Denies abdominal pain, nausea, vomiting, bloody stools or diarrhea [] : Denies dysuria or hematuria [] Musculoskeletal: Denies back pain or joint pain [] Integument: Denies rash or skin lesions [] Neurologic: Denies headache, focal weakness or sensory changes [] Endocrine: Denies polyuria or polydipsia [] All other systems were reviewed and found to be within normal limits, except as documented in this note. Family History Family History Noncontributory Current Medications Current Medications Current Medications Medications (Trade) Dose Ordered Sig/Master Start Time Stop Time Status Last Admin Dose Admin Famotidine (Pepcid Vial) 20 mg 1X ONCE 09/15/17 21:30 09/15/17 21:31 DC 09/15/17 22:21 20 MG Info (Do NOT chart on this entry -- for MONITORING) 1 each PRN DAILY PRN 09/15/17 23:15 09/17/17 23:14 Iohexol (Omnipaque 240 Mg/ml) 30 ml 1X ONCE 09/15/17 23:15 09/15/17 23:16 DC 09/16/17 00:12 30 ML Iohexol (Omnipaque 300 Mg/ml) 75 ml 1X ONCE 09/15/17 23:15 09/15/17 23:16 DC 09/16/17 00:12 75 ML Lactated Ringer's 1,000 ml @ 1,000 mls/hr Q1H 09/15/17 21:06 09/15/17 22:05 DC 09/15/17 22:21 1,000 MLS/HR Lorazepam (Ativan) 2 mg 1X PRN PRN 09/15/17 23:15 Multivitamins/ Minerals 10 ml/ Folic Acid 1 mg/ Thiamine HCl 100 mg/Sodium Chloride 1,011.1 ml @ 1,000 mls/ hr 1X ONCE 09/15/17 21:30 09/15/17 22:30 DC 09/15/17 22:21 1,000 MLS/HR Ondansetron HCl (Zofran) 4 mg PRN Q4HRS PRN 09/15/17 23:15 09/16/17 23:14 09/16/17 02:41 4 MG Allergies Allergies Allergies Coded Allergies Type Severity Reaction Last Updated Verified No Known Drug Allergies 08/12/15 No Physical Exam Physical Exam Constitutional: in acute distress, very intoxicated in appearance. [] HENT: Normocephalic, atraumatic, bilateral external ears normal, oropharynx dry , no oral exudates, nose normal. [] Eyes: PERRLA, EOMI, conjunctiva normal, no discharge. [] Neck: Normal range of motion, no tenderness, supple, no stridor. [] Cardiovascular:Bradycardia Heart rate regular rhythm, no murmur [] Lungs & Thorax: Bilateral breath sounds clear to auscultation [] Abdomen: Bowel sounds decreased, soft,epigastric and mid abd. tenderness, no masses, no pulsatile masses. [] Rebound epigastric. Dry heaving Skin: Warm, dry, no erythema, no rash. [] Back: No tenderness, no CVA tenderness. [] Extremities: No tenderness, no cyanosis, no clubbing, ROM intact, no edema. [] Neurologic: Alert , but very intoxicated,moves all ext. on request, , no gross focal deficits noted. []Very dizzy and discoordinated at attempts to stand. Psychologic: Affect anxious, mood depressed. Current Patient Data Vital Signs Vital Signs Date Time Temp Pulse Resp B/P (MAP) Pulse Ox O2 Delivery O2 Flow Rate FiO2 09/15/17 23:15 58 14 97/54 (68) 96 Room Air 09/15/17 21:18 98.2 Lab Results Laboratory Tests Test 09/15/17 22:00 09/15/17 22:52 White Blood Count 6.3 x10^3/uL (4.0-11.0) Red Blood Count 4.32 x10^6/uL (3.50-5.40) Hemoglobin 13.5 g/dL (12.0-15.5) Hematocrit 39.2 % (36.0-47.0) Mean Corpuscular Volume 91 fL (79-100) Mean Corpuscular Hemoglobin 31 pg (25-35) Mean Corpuscular Hemoglobin Concent 34 g/dL (31-37) Red Cell Distribution Width 12.8 % (11.5-14.5) Platelet Count 232 x10^3/uL (140-400) Neutrophils (%) (Auto) 55 % (31-73) Lymphocytes (%) (Auto) 37 % (24-48) Monocytes (%) (Auto) 6 % (0-9) Eosinophils (%) (Auto) 2 % (0-3) Basophils (%) (Auto) 0 % (0-3) Neutrophils # (Auto) 3.5 x10^3uL (1.8-7.7) Lymphocytes # (Auto) 2.3 x10^3/uL (1.0-4.8) Monocytes # (Auto) 0.4 x10^3/uL (0.0-1.1) Eosinophils # (Auto) 0.2 x10^3/uL (0.0-0.7) Basophils # (Auto) 0.0 x10^3/uL (0.0-0.2) Sodium Level 145 mmol/L (136-145) Potassium Level 3.0 mmol/L (3.5-5.1) L Chloride Level 107 mmol/L (98-107) Carbon Dioxide Level 28 mmol/L (21-32) Anion Gap 10 (6-14) Blood Urea Nitrogen 5 mg/dL (7-20) L Creatinine 0.8 mg/dL (0.6-1.0) Estimated GFR (Cockcroft-Gault) 75.0 Glucose Level 109 mg/dL (70-99) H Calcium Level 8.7 mg/dL (8.5-10.1) Total Bilirubin 0.3 mg/dL (0.2-1.0) Direct Bilirubin 0.1 mg/dL (0.0-0.2) Aspartate Amino Transferase (AST) 31 U/L (15-37) Alanine Aminotransferase (ALT) 25 U/L (14-59) Alkaline Phosphatase 92 U/L (46-116) Troponin I Quantitative < 0.017 ng/mL (0-0.055) Total Protein 7.3 g/dL (6.4-8.2) Albumin 3.5 g/dL (3.4-5.0) Amylase Level 96 U/L (25-115) Lipase 1335 U/L (73-393) H Ethyl Alcohol Level 294 mg/dL (0-10) H Urine Collection Type Void Urine Color Straw Urine Clarity Clear Urine pH 7.0 Urine Specific [place] <=1.005 Urine Protein Neg (NEG-TRACE) Urine Glucose (UA) Neg mg/dL (NEG) Urine Ketones (Stick) Neg mg/dL (NEG) Urine Blood Neg (NEG) Urine Nitrite Neg (NEG) Urine Bilirubin Neg (NEG) Urine Urobilinogen Dipstick 0.2 mg/dL (0.2 mg/dL) Urine Leukocyte Esterase Neg (NEG) Urine RBC 0 /HPF (0-2) Urine WBC 0 /HPF (0-4) Urine Squamous Epithelial Cells Occ /LPF Urine Bacteria 0 /HPF (0-FEW) Urine Opiates Screen Neg (NEG) Urine Methadone Screen Neg (NEG) Urine Barbiturates Neg (NEG) Urine Phencyclidine Screen Neg (NEG) Urine Amphetamine/Methamphetamine Neg (NEG) Urine Benzodiazepines Screen Neg (NEG) Urine Cocaine Screen Neg (NEG) Urine Cannabinoids Screen Neg (NEG) Urine Ethyl Alcohol Pos (NEG) EKG EKG My interpretation of EKG shows a sinus rhythm at 66 bpm. There is some baseline wavering and artifact substandard EKG however patient able to lay still because of nausea and retching.[] Radiology/Procedures Radiology/Procedures My interpretation acute abdomen film shows shows no acute findings of free air under the diaphragm.. Does have dilated bladder. Has clips in right upper quadrant.[] Patient CT abdomen shows a dilated appendix but no surrounding stranding or inflammation. Also has periportal edema. See formal report when available. Course & Med Decision Making Course & Med Decision Making Pertinent Labs and Imaging studies reviewed. (See chart for details) Pt. to be admitted to Dr. Ybarra- further eval. and tx. [] Final Impression Final Impression 1. Alcohol abuse 2. History of alcohol withdrawal 3. Nausea vomiting 4. Abdomen pain 5. Pancreatitis 6. Hypokalemia 3.0 7. Dilated Appendix- ?, early appendicitis versus artifact Dragon Disclaimer Dragon Disclaimer This electronic medical record was generated, in whole or in part, using a voice recognition dictation system. TIFFANY LIN MD Sep 15, 2017 21:05
[2017-09-15] MEDS ORDERED: IV RINGERS SOLUTION,LACTATED 1,000 ML IV SCH (21:06)
[2017-09-15] MEDS ORDERED: ONDANSETRON PF 4 MG/2 ML VIAL. IV ONE (21:30)
[2017-09-15] MEDS ORDERED: FAMOTIDINE 20 MG/2 ML VIAL IVP ONE (21:30)
[2017-09-15] MEDS ORDERED: MVI, ADULT NO.4 WITH VIT K 10 ML, FOLIC ACID SYRINGE for ER 1 MG, THIAMINE 100 MG in IV... IV ONE ×4 (21:30)
--- NOTE | 2017-09-15 21:52 | EKG ---
[address] [address] Test Date: 2017-09-15 Test Time: 21:35:31 Pat Name: RAINER QUESADA Department: Room: Gender: F Ibm Bpm Developer: : 1965 Requested By: TIFFANY LIN Order Number: [id number] Reading MD: Measurements Intervals [place] Rate: 66 P: ND: QRS: 44 QRSD: 92 T: -11 QT: 518 QTc: 545 Interpretive Statements ATRIAL FLUTTER T ABNORMALITY IN INFERIOR LEADS PROLONGED QT ABNORMAL ECG RI6.01 Unconfirmed report No previous ECG available for comparison
[2017-09-15 22:32] LABS: BASO % 0 % (0-3); EOS # 0.2 x10^3/uL (0.0-0.7); EOS % 2 % (0-3); HEMATOCRIT 39.2 % (36.0-47.0); HEMOGLOBIN 13.5 g/dL (12.0-15.5); LYMPH # 2.3 x10^3/uL (1.0-4.8); LYMPH % 37 % (24-48); MEAN CORPUSCULAR HEMOGLOBIN 31 pg (25-35); MEAN CORPUSCULAR HGB CONC 34 g/dL (31-37); MEAN CORPUSCULAR VOLUME 91 fL (79-100); MONO # 0.4 x10^3/uL (0.0-1.1); MONO % 6 % (0-9); NEUT # 3.5 x10^3uL (1.8-7.7); NEUT % 55 % (31-73); PLATELET COUNT 232 x10^3/uL (140-400); RED BLOOD COUNT 4.32 x10^6/uL (3.50-5.40); RED CELL DISTRIBUTION WIDTH 12.8 % (11.5-14.5); WHITE BLOOD COUNT 6.3 x10^3/uL (4.0-11.0)
[2017-09-15 22:41] LABS: ALBUMIN 3.5 g/dL (3.4-5.0); CALCIUM 8.7 mg/dL (8.5-10.1); CREATININE 0.8 mg/dL (0.6-1.0); DIRECT BILIRUBIN 0.1 mg/dL (0.0-0.2); TOTAL BILIRUBIN 0.3 mg/dL (0.2-1.0); TOTAL PROTEIN 7.3 g/dL (6.4-8.2)
[2017-09-15] MEDS ORDERED: CONTRAST GIVEN MC PRN (23:15)
[2017-09-15] MEDS ORDERED: IOHEXOL 240 MG/ML 50ML VIAL. PO ONE (23:15)
[2017-09-15] MEDS ORDERED: IOHEXOL 300 MG/ML 75 ML VIAL. IV ONE (23:15)
[2017-09-15] MEDS ORDERED: LORazepam 2 MG/ML VIAL IV PRN (23:15)
[2017-09-15] MEDS ORDERED: ONDANSETRON PF 4 MG/2 ML VIAL. IV PRN (23:15)
[2017-09-15 23:21] LABS: BARBITURATES NEG (NEG); BENZODIAZEPINES NEG (NEG); CANNABINOIDS NEG (NEG); COCAINE NEG (NEG); METHADONE NEG (NEG); OPIATES NEG (NEG); PHENCYCLIDINE NEG (NEG)
[2017-09-15 23:26] LABS: BACTERIA,URINE 0 /HPF (0-FEW); BILIRUBIN,URINE NEG (NEG); CLARITY,URINE CLEAR; COLOR,URINE STRAW; GLUCOSE,URINE NEG (NEG); NITRITE,URINE NEG (NEG); RBC,URINE 0 /HPF (0-2); SQUAMOUS EPITHELIAL CELL,UR OCC /LPF; UROBILINOGEN,URINE 0.2 mg/dL (0.2 mg/dL); WBC,URINE 0 /HPF (0-4)
[2017-09-15 23:28] LABS: AMPHETAMINE/METHAMPHETAMINE NEG (NEG)
--- NOTE | 2017-09-16 01:04 | RAD ---
INDICATION: Omni 300 75cc: Abdomen pain, nausea, vomiting, intoxication. Hx: Cholecystectomy COMPARISON: July 2015 TECHNIQUE: Axial CT images obtained through the abdomen and pelvis with contrast. One or more of the following individualized dose reduction techniques were utilized for this examination: 1. Automated exposure control; 2. Adjustment of the mA and/or kV according to patient size; 3. Use of iterative reconstruction technique. FINDINGS: Mild opacities at lung bases. No abdominal aortic aneurysm. Suspected portal edema. Peripheral enhancing lesion right lobe the liver laterally measuring up to 21 mm. No peripancreatic fluid collection. Spleen has a possible tiny low-density lesion within which is too small to characterize. No left-sided hydronephrosis. Urinary bladder is partially distended at time of exam. No right-sided hydronephrosis. The suspected appendix measures up to about 9 mm. No dilated loops of bowel to suggest obstruction. Degenerative changes of spine. IMPRESSION: 1. The appendix is dilated measuring up to about 9 mm but definitive adjacent inflammation is not seen at this time. Please note that some patients can have a dilated appendix at baseline and given that this does not have definitive adjacent inflammation this does not fulfill all of the CT criteria for appendicitis. If there is high concern for appendicitis and further imaging evaluation is desired a follow-up CT could be obtained at a later time to assess for development of adjacent inflammation. 2. No evidence of bowel obstruction. 3. There is some periportal edema. Nonspecific finding and could be related to patient's hydration status but would correlate with symptoms and lab markers to ensure this is not from biliary or hepatic inflammation. 4. Peripheral enhancing lesion in the right lobe the liver. Could be from causes such as hemangioma but incompletely evaluated on a single phase exam. Electronically signed by: Artur Robin MD (09/16/2017 1:01 AM) [facility]
[2017-09-16] MEDS ORDERED: LURA40TA PO (01:51)
[2017-09-16 01:53] VITALS: BP 106/69
[2017-09-16] MEDS ORDERED: POTASSIUM CL 40MEQ IN 0.9%NACL 1,000 ML IV ONE (02:00)
[2017-09-16] MEDS ORDERED: LORazepam 2 MG/ML VIAL IV PRN (03:15)
[2017-09-16 06:06] LABS: BASO % 1 % (0-3); EOS # 0.1 x10^3/uL (0.0-0.7); EOS % 3 % (0-3); HEMATOCRIT 32.8 % (36.0-47.0); LYMPH % 44 % (24-48); MEAN CORPUSCULAR HEMOGLOBIN 31 pg (25-35); MEAN CORPUSCULAR HGB CONC 34 g/dL (31-37); MEAN CORPUSCULAR VOLUME 92 fL (79-100); MONO # 0.3 x10^3/uL (0.0-1.1); MONO % 7 % (0-9); NEUT # 2.1 x10^3uL (1.8-7.7); NEUT % 46 % (31-73); PLATELET COUNT 193 x10^3/uL (140-400); RED BLOOD COUNT 3.55 x10^6/uL (3.50-5.40); RED CELL DISTRIBUTION WIDTH 12.7 % (11.5-14.5); WHITE BLOOD COUNT 4.6 x10^3/uL (4.0-11.0)
[2017-09-16 06:11] LABS: CALCIUM 7.8 mg/dL (8.5-10.1); CREATININE 0.7 mg/dL (0.6-1.0); GFR 87.5
[2017-09-16 06:40] VITALS: BP 108/71
[2017-09-16] MEDS: FAMOTIDINE 20 MG/2 ML VIAL IVP SCH ×2 (07:41→21:35)
[2017-09-16] MEDS: LORazepam 2 MG/ML VIAL IV SCH ×4 (07:42→21:35)
[2017-09-16] MEDS: LURASIDONE 40 MG TABLET. PO SCH (09:46)
[2017-09-16] MEDS: CITALOPRAM 20 MG TABLET. PO SCH (09:46)
[2017-09-16] MEDS: MVI, ADULT NO.4 WITH VIT K 10 ML, FOLIC ACID SYRINGE for ER 1 MG, THIAMINE 100 MG in IV... IV SCH ×4 (09:47)
--- NOTE | 2017-09-16 10:58 | HP ---
ADMIT DATE: 09/15/2017 HISTORY OF PRESENT ILLNESS: The patient is a 52-year-old female patient who yet again came back to the Emergency Room complaining of nausea, vomiting, and abdominal pain after binge drinking of alcohol. She was admitted recently here with acute alcohol intoxication. On 09/12/2017 and 09/13/2017, she was discharged and started drinking again heavily. She has a history of chronic alcohol abuse, periodic episodes of sobriety. She apparently consumed one-fifth whiskey before admission and while she came to the Emergency Room, actively vomiting with dry heaves. She also complained of pain in the epigastric and around the umbilical area and does have rebound pain. Her does not know where she got alcohol for consumption before she arrived there. She apparently was in [place] and was sober for almost 5 months. She is supposed to be on Antabuse (disulfiram). She remained off alcohol while taking disulfiram for more than 5 months. When she stopped disulfiram, she started resuming alcohol abuse. The patient and her stated that this treatment was the most successful. She has been into [facility] about 5 times and unfortunately, she elapses every time. PAST MEDICAL HISTORY: Significant for depression, anxiety, and obviously alcoholism. PAST SURGICAL HISTORY: Significant for cholecystectomy and esophagogastroduodenoscopy. ALLERGIES: She has no known drug allergies. MEDICATIONS: She is currently on Lexapro 10 mg once a day, trazodone 150 mg at bedtime. She is also supposed to be on disulfiram 250 mg daily and Latuda 40 mg daily. FAMILY HISTORY: Unremarkable. SOCIAL HISTORY: She is , has 2 sons and 1 daughter. She smokes occasionally. She has been sober for 5 months. 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 REVIEW OF SYSTEMS: As per history of present illness. On arrival to the Emergency Room, she was very intoxicated; however, there was no pallor, jaundice or cyanosis. No lymphadenopathy, no thyromegaly. No jugular venous distension. No limb edema. PHYSICAL EXAMINATION: VITAL SIGNS: Her heart rate was 64, blood pressure 106/67, temperature was 98.3, respiratory rate 20, and oxygen saturation was 96%. HEAD, EYES, EARS, NOSE, AND THROAT: Normocephalic, atraumatic. NECK: Supple. HEART: Showed normal first and second heart sounds with no gallop, rub or murmur. CHEST: Clear to auscultation. No crepitation or rhonchi. ABDOMEN: Distended, soft, and nontender. She does have mid abdominal tenderness, no masses. No pulsatile masses. There is no guarding or rigidity. No organomegaly. Hernial orifice intact. Bowel sounds normal. NEUROLOGIC: She was intoxicated; however, there is no gross focal deficit noted. She is very ataxic and dizzy when she attempts to stand. LABORATORY DATA: On admission showed that her white cell count was 6300, hemoglobin 13.5, hematocrit 39, MCV 91, and platelet count of 232,000, with normal manual differential. Her chemistry showed a serum sodium of 145, potassium 3, chloride 107, bicarbonate 28, anion gap of 10, BUN 5, creatinine 0.8, estimated GFR was 75 mL per minute. Her glucose 109, calcium was 8.7. Total bilirubin, AST, ALT, alkaline phosphatase were normal. Total protein 7.3, albumin was 3.5. Her amylase was 96; however, serum lipase was high at 1335. ASSESSMENT AND PLAN: The patient was basically admitted with alcohol intoxication, acute pancreatitis, hypokalemia, nausea, vomiting, and abdominal pain. The patient was started on a banana bag and started also on her alcohol withdrawal protocol. We will monitor her lab work and I examined her closely and decide the further management accordingly. LANCE SIMON MD DR: HECTOR/benedicto JOB#: [id number] / [id number]
[2017-09-16 11:14] VITALS: BP 115/74
[2017-09-16 15:21] VITALS: BP 118/79
[2017-09-16 19:20] VITALS: BP 109/71
[2017-09-16] MEDS ORDERED: traZODone 50 MG TABLET. PO SCH (21:00)
[2017-09-16] MEDS ORDERED: traZODone 150 MG TABLET. PO SCH (21:00)
[2017-09-16 23:00] VITALS: BP 112/72
[2017-09-17 06:24] VITALS: BP 131/71
[2017-09-17 06:35] LABS: ALBUMIN 2.6 g/dL (3.4-5.0); CALCIUM 8.3 mg/dL (8.5-10.1); CREATININE 0.8 mg/dL (0.6-1.0); MAGNESIUM 1.8 mg/dL (1.8-2.4); POTASSIUM 3.5 mmol/L (3.5-5.1); TOTAL BILIRUBIN 0.4 mg/dL (0.2-1.0); TOTAL PROTEIN 5.3 g/dL (6.4-8.2)
[2017-09-17] MEDS: LORazepam 2 MG/ML VIAL IV SCH (08:24)
[2017-09-17] MEDS: FAMOTIDINE 20 MG/2 ML VIAL IVP SCH (08:24)
[2017-09-17] MEDS: LURASIDONE 40 MG TABLET. PO SCH (08:25)
[2017-09-17] MEDS: MVI, ADULT NO.4 WITH VIT K 10 ML, FOLIC ACID SYRINGE for ER 1 MG, THIAMINE 100 MG in IV... IV SCH ×4 (08:26)
[2017-09-17] MEDS: CITALOPRAM 20 MG TABLET. PO SCH (08:27)
--- NOTE | 2017-09-17 09:23 | PN ---
DATE: 09/16/2017 SUBJECTIVE: The patient is resting almost flat in bed, in no apparent distress, sleepy, but arousable. On questioning her, she does seem to be somewhat depressed. However, denied any further episodes of nausea or vomiting. Denied any abdominal pain. Did complain of diarrhea. PHYSICAL EXAMINATION: GENERAL: When I examined her this morning, she looked well and was clearly in no apparent respiratory distress. No pallor, jaundice, cyanosis, or thyromegaly. No jugular venous distension. No lower limb edema. VITAL SIGNS: Her heart rate was 75, blood pressure was 108/71, temperature was 98.4, respiratory rate was 18 and oxygen saturation was 96% on room air. HEAD, EYES, EARS, NOSE AND THROAT: Showed normocephalic, atraumatic. NECK: Supple. HEART: Showed normal first and second sounds. No gallop, rub or murmur. CHEST: Clear to auscultation. No crepitation or rhonchi. ABDOMEN: Distended, soft, nontender. No guarding or rigidity. No organomegaly. Hernial orifice intact. Bowel sounds normal. NEUROLOGIC: She is more awake, alert, responding appropriately. All cranial nerves intact. She moves all extremities without difficulty. Her intake was 2000. No output was recorded. LABORATORY DATA: Her lab work this morning showed a white cell count 4600, hemoglobin 11, hematocrit 33, MCV 92, and platelet count of 193,000 with normal manual differential. Her serum sodium was 146, potassium 4, chloride 112, bicarbonate 29, anion gap of 5, BUN 5, creatinine 0.7, estimated GFR was 87 mL per minute. Her glucose was 79 and calcium was 7.8. Her serum lipase was 367. ASSESSMENT: 1. Alcohol intoxication. 2. Alcohol withdrawal syndrome. 3. Nausea, vomiting and abdominal pain, resolved. 4. Acute pancreatitis, resolved. 5. Hypokalemia, resolved. DICTATION ENDS HERE LANCE SIMON MD DR: HECTOR/benedicto JOB#: [id number] / [id number]
[2017-09-17] MEDS ORDERED: LORA-254 PO (10:00)
[2017-09-17 10:22] VITALS: BP 113/71
--- NOTE | 2017-09-17 16:21 | RAD ---
INDICATION: Abdominal pain, nausea and vomiting. Intoxication. TECHNIQUE: Abdominal series with PA chest radiograph contains 3 images. Comparison is from 3 days earlier. FINDINGS: The lungs remain clear. The heart is not enlarged and there is no heart failure. There is mild dextrocurvature centered in the lower thoracic spine. There is no free air. Bowel gas pattern is nonobstructive. There is no dilated bowel loop or air-fluid level. There are clips in the right upper quadrant. There are calcified phleboliths in the pelvis. IMPRESSION: 1. Nonobstructive bowel gas pattern. 2. No acute thoracic findings. Electronically signed by: Jeison Vann MD (09/16/2017 8:38 AM) [facility]
--- NOTE | 2017-09-17 21:49 | DS ---
DATE OF DISCHARGE: 09/17/2017 HOSPITAL COURSE: The patient is a 52-year-old female patient who yet again came with recurrent bouts of nausea, vomiting and abdominal pain. Her blood alcohol level was 294. Her serum lipase was high and the patient was kept initially n.p.o. and then once her lipase came down, she had no more nausea and vomiting, advanced her diet. She did actually very well. She was treated with banana bag and alcohol withdrawal protocol and she did very well. We offered to refer her again to [place] where she has been to multiple times, but she said that she would like to go home. She would like some Ativan initially to assist with her restlessness and tremors and shaking and she will start back on her disulfiram. Her was here yesterday and he did take a week off to assist her. PHYSICAL EXAMINATION: GENERAL: When I saw her this morning, she looked well and was clearly in no apparent respiratory distress. No pallor, jaundice, cyanosis or thyromegaly. No jugular venous distention. No lower limb edema. VITAL SIGNS: Her heart rate was 57, blood pressure was 131/71, temperature was 97.9, respiratory rate was 20, and oxygen saturation was 97%. HEENT: Examination of the head, eyes, ears, nose and throat showed normocephalic, atraumatic. NECK: Supple. HEART: Showed normal first and heart sounds. Gallop, rub or murmur. CHEST: Clear to auscultation. No crepitation or rhonchi. ABDOMEN: Distended, soft, nontender. NEUROLOGIC: She was awake, alert, responding appropriately. All her cranial nerves are intact. EXTREMITIES: She moves extremities without difficulty. She ambulates without assistance or assistive devices. Her intake and output were incompletely recorded. LABORATORY DATA: Her lab work this morning showed a serum sodium 141, potassium 3.5, chloride 108, bicarbonate 32, anion gap of 1. BUN was 7, creatinine was 0.8, estimated GFR was 75 mL per minute. Her glucose was 86, calcium was 8.3, magnesium was 1.8. Total bilirubin, AST, ALT, alkaline phosphatase was normal. Total protein was 5.3, albumin 2.6, and lipase was 367. Her white cell count was 4600, hemoglobin 11, hematocrit 33, MCV 92, and platelet count of 193,000. Urinalysis was unremarkable. DISCHARGE MEDICATIONS: The patient was discharged home to continue on a tapering course of Ativan and was advised to start her disulfiram 250 mg daily, escitalopram oxalate 10 mg daily, Latuda 40 mg daily, and trazodone 150 mg at bedtime. FINAL DISCHARGE DIAGNOSES: 1. Alcohol intoxication. 2. Alcohol withdrawal syndrome. 3. Alcohol-induced pancreatitis. 4. Depression, anxiety. LANCE SIMON MD DR: HECTOR/benedicto JOB#: [id number] / [id number]
== END 2017-09-17 11:58 | disposition home or self-care (01) | DRG 439 ==
LOC: ER 20:50 → UNDOADMIN 21:00 → 1 SOUTH 21:00
PROVIDERS: ADMIT Internal Medicine; ATTEND Internal Medicine
DX: K85.20 Alcohol induced acute pancreatitis without necrosis or infection (principal); F10.239 Alcohol dependence with withdrawal, unspecified; F10.229 Alcohol dependence with intoxication, unspecified; E87.6 Hypokalemia; F17.200 Nicotine dependence, unspecified, uncomplicated; F32.9 Major depressive disorder, single episode, unspecified; F41.9 Anxiety disorder, unspecified; Y90.8 Blood alcohol level of 240 mg/100 ml or more; Z90.49 Acquired absence of other specified parts of digestive tract
CPT/HCPCS: 36415; 74022; 74177; 80048; 80053; 80076; 80307; 81001; 82150; 83690; 83735; 84484; 85025; 93005; 96365; 96375; G0480; J2060; J2405; J7120; Q9966; Q9967; S0028; 99285-25; G0479; J7030

== ENCOUNTER 2017-11-14 17:58 | Inpatient (IN) | payer OTHER ==
[~2017-11-14] VITALS: Ht 170.2 cm; Wt 58.1 kg
[~2017-11-14 17:58] MED LIST changes: +LURA40TA PO
[2017-11-14] MEDS ORDERED: MVI, ADULT NO.4 WITH VIT K 10 ML, FOLIC ACID SYRINGE for ER 1 MG, THIAMINE INJ 100 MG i... IV SCH ×4 (18:30)
--- NOTE | 2017-11-14 18:30 | EKG ---
[address] [address] Test Date: 2017-11-14 Test Time: 18:26:06 Pat Name: RAINER QUESADA Department: Room: Gender: F Locks Inspector: : 1965 Requested By: SUSY ORTIZ Order Number: [id number] Reading MD: Orlin Vargas Measurements Intervals [place] Rate: 106 P: 48 [place]: 158 QRS: 51 QRSD: 86 T: 4 QT: 318 QTc: 424 Interpretive Statements SINUS TACHYCARDIA Electronically Signed On 11-17-2017 12:26:02 CDT by Orlin Vargas
[2017-11-14 18:33] LABS: BASO % 0 % (0-3); EOS % 0 % (0-3); HEMATOCRIT 48.4 % (36.0-47.0); HEMOGLOBIN 16.3 g/dL (12.0-15.5); LYMPH # 1.5 x10^3/uL (1.0-4.8); LYMPH % 10 % (24-48); MEAN CORPUSCULAR HEMOGLOBIN 32 pg (25-35); MEAN CORPUSCULAR HGB CONC 34 g/dL (31-37); MEAN CORPUSCULAR VOLUME 94 fL (79-100); MONO # 0.7 x10^3/uL (0.0-1.1); MONO % 4 % (0-9); NEUT % 85 % (31-73); PLATELET COUNT 374 x10^3/uL (140-400); RED BLOOD COUNT 5.13 x10^6/uL (3.50-5.40); RED CELL DISTRIBUTION WIDTH 14.3 % (11.5-14.5); WHITE BLOOD COUNT 15.3 x10^3/uL (4.0-11.0)
--- NOTE | 2017-11-14 18:34 | PHYS DOC ---
Past History Past Medical History: Alcoholism, Pancreatitis, Other Past Surgical History: Cholecystectomy Alcohol Use: Heavy Drug Use: None Adult General Chief Complaint Chief Complaint: ALCOHOL INTOXICATION HPI HPI Patient is a 52 year old female who presents with complaint of nausea and vomiting. The patient was brought to the emergency department that her . The patient has history of chronic alcoholism. The patient has been binging on vodka over the past 5 days. states that he has been traveling and arrives today to find the patient vomiting and covered in urine. The patient does not typically drink alcohol daily but has multiple episodes of binge drinking. She denies any pain currently. The patient has had multiple episodes of vomiting and has had coffee-ground like emesis per . Patient has been admitted in multiple alcohol treatment centers but has unfortunately relapsed after all treatments. Review of Systems Review of Systems Constitutional: Denies fever or chills [] Eyes: Denies change in visual acuity, redness, or eye pain [] HENT: Denies nasal congestion or sore throat [] Respiratory: Denies cough or shortness of breath [] Cardiovascular: Denies chest pain or edema[] GI: Nausea, vomiting, denies abdominal pain, bloody stools or diarrhea [] : Denies dysuria or hematuria [] Musculoskeletal: Denies back pain or joint pain [] Integument: Denies rash or skin lesions [] Neurologic: Generalized weakness, denies headache or sensory changes [] All other systems were reviewed and found to be within normal limits, except as documented in this note. Current Medications Current Medications Current Medications Medications (Trade) Dose Ordered Sig/[facility] Start Time Stop Time Status Last Admin Dose Admin Multivitamins/ Minerals 10 ml/ Folic Acid 1 mg/ Thiamine HCl 100 mg/Sodium Chloride 1,011.2 ml @ 1,000 mls/ hr Q1H 11/14/17 18:30 Allergies Allergies Allergies Coded Allergies Type Severity Reaction Last Updated Verified No Known Drug Allergies 08/12/15 No Physical Exam Physical Exam Constitutional: Lethargic, afebrile, appears ill and dehydrated. [] HENT: Normocephalic, atraumatic, bilateral external ears normal, oropharynx dry , no oral exudates, nose normal. [] Eyes: PERRLA, EOMI, conjunctiva normal, no discharge. [] Neck: Normal range of motion, no tenderness, supple, no stridor. [] Cardiovascular: Tachycardia, regular rhythm, no murmur [] Lungs & Thorax: Bilateral breath sounds clear to auscultation [] Abdomen: Bowel sounds normal, soft, no tenderness, no masses, no pulsatile masses. [] Skin: Warm, dry, no erythema, no rash. [] Back: No tenderness, no CVA tenderness. [] Extremities: No tenderness, no cyanosis, no clubbing, ROM intact, no edema. [] Neurologic: Alert and oriented X 3, normal motor function, normal sensory function, no focal deficits noted. [] Current Patient Data Vital Signs Vital Signs Date Time Temp Pulse Resp B/P (MAP) Pulse Ox O2 Delivery O2 Flow Rate FiO2 11/14/17 19:54 98.4 141 18 94 Room Air Lab Results Laboratory Tests Test 11/14/17 18:12 11/14/17 18:14 11/14/17 19:15 Lipase 159 U/L White Blood Count 15.3 x10^3/uL Red Blood Count 5.13 x10^6/uL Hemoglobin 16.3 g/dL Hematocrit 48.4 % Mean Corpuscular Volume 94 fL Mean Corpuscular Hemoglobin 32 pg Mean Corpuscular Hemoglobin Concent 34 g/dL Red Cell Distribution Width 14.3 % Platelet Count 374 x10^3/uL Neutrophils (%) (Auto) 85 % Lymphocytes (%) (Auto) 10 % Monocytes (%) (Auto) 4 % Eosinophils (%) (Auto) 0 % Basophils (%) (Auto) 0 % Neutrophils # (Auto) 13.0 x10^3uL Lymphocytes # (Auto) 1.5 x10^3/uL Monocytes # (Auto) 0.7 x10^3/uL Eosinophils # (Auto) 0.0 x10^3/uL Basophils # (Auto) 0.0 x10^3/uL Segmented Neutrophils % 80 % Band Neutrophils % 2 % Lymphocytes % 14 % Monocytes % 3 % Platelet Estimate Adequate Prothrombin Time < 9.4 SEC Prothromb Time International Ratio 0.9 Activated Partial Thromboplast Time 21 SEC Sodium Level 141 mmol/L Potassium Level 3.5 mmol/L Chloride Level 102 mmol/L Carbon Dioxide Level 17 mmol/L Anion Gap 22 Blood Urea Nitrogen 18 mg/dL Creatinine 0.9 mg/dL Estimated GFR (Cockcroft-Gault) 65.5 Glucose Level 59 mg/dL Calcium Level 8.5 mg/dL Magnesium Level 2.0 mg/dL Total Bilirubin 0.2 mg/dL Direct Bilirubin 0.1 mg/dL Aspartate Amino Transf (AST/SGOT) 78 U/L Alanine Aminotransferase (ALT/SGPT) 40 U/L Alkaline Phosphatase 103 U/L Total Protein 8.6 g/dL Albumin 4.4 g/dL Ethyl Alcohol Level 244 mg/dL Urine Collection Type Unknown Urine Color Yellow Urine Clarity Clear Urine pH 5.0 Urine Specific [place] >=1.030 Urine Protein 100 mg/dl Urine Glucose (UA) Neg mg/dL Urine Ketones (Stick) >=160 mg/dL Urine Blood Trace Urine Nitrite Neg Urine Bilirubin Neg Urine Urobilinogen Dipstick 0.2 mg/dL Urine Leukocyte Esterase Neg Urine RBC Occ /HPF Urine WBC Rare /HPF Urine Squamous Epithelial Cells Occ /LPF Urine Transitional Epithelial Cells Occ /LPF Urine Bacteria 0 /HPF Urine Hyaline Casts Occ /HPF Urine Mucus Mod /LPF Urine Opiates Screen Neg Urine Methadone Screen Neg Urine Barbiturates Neg Urine Phencyclidine Screen Neg Urine Amphetamine/Methamphetamine Neg Urine Benzodiazepines Screen Neg Urine Cocaine Screen Neg Urine Cannabinoids Screen Neg Urine Ethyl Alcohol Pos Current Medications Medications (Trade) Dose Ordered Sig/Master Route PRN Reason Start Time Stop Time Status Last Admin Dose Admin Multivitamins/ Minerals 10 ml/ Folic Acid 1 mg/ Thiamine HCl 100 mg/Sodium Chloride 1,011.2 ml @ 1,000 mls/ hr Q1H IV 11/14/17 18:30 11/14/17 18:44 DC 11/14/17 18:44 Ondansetron HCl (Zofran) 4 mg 1X ONCE IV 11/14/17 18:45 11/14/17 18:46 DC 11/14/17 18:48 Pantoprazole Sodium (Protonix Vial) 40 mg 1X ONCE IVP 11/14/17 18:45 11/14/17 18:46 DC 11/14/17 18:48 Iohexol (Omnipaque 300 Mg/ml) 75 ml 1X ONCE IV 11/14/17 20:00 11/14/17 20:01 DC 11/14/17 20:04 Promethazine HCl (Phenergan Im) 25 mg 1X ONCE IM 11/14/17 20:45 11/14/17 20:46 EKG EKG Interpreted by me: Heart rate 106, sinus tachycardia, normal intervals, normal axis, nonspecific T-wave inversion in lead 3, no acute ST elevations or depressions[] Radiology/Procedures Radiology/Procedures [address] [address] IMAGING REPORT Signed PATIENT: RAINER QUESADA ACCOUNT: [id number] : 1965 LOCATION: ER AGE: 52 SEX: F EXAM STATUS: REG ER ORD. PHYSICIAN: SUSY ORTIZ MD REASON: Upper abdominal pain, vomiting. Hx: 08/2017 questionable appendix PROCEDURE: CT ABD PELV W/ IV CONTRST ONLY CT abdomen and pelvis with contrast History: Upper abdominal pain, vomiting Technique: After the administration of intravenous contrast, CT imaging was performed of the abdomen and pelvis. No oral contrast was given as per request. Multiplanar images are reviewed. Exposure: One or more of the following individualized dose reduction techniques were utilized for this examination: 1. Automated exposure control 2. Adjustment of the mA and/or kV according to patient size 3. Use of iterative reconstruction technique. Contrast: 75 cc Omnipaque 300. Comparison: September 16, 2017 Findings: There is no significant abnormality of the visualized lung bases. There is no significant focal abnormality of the spleen, pancreas, adrenal glands. There may be hepatic steatosis. Both kidneys enhance without hydronephrosis. Incidental note is made of retroaortic left renal vein. There has been cholecystectomy. There is a hyperenhancing focus of nodularity of the right lobe the liver about 2.1 cm AP by 1.7 cm transverse by 2.6 cm CC, appearance of more peripheral nodular enhancement present. Accurate evaluation of bowel is limited without oral contrast. There is appearance of fairly severe wall thickening with some associated mucosal enhancement of the gastroduodenal junction and proximal duodenum. There is also wall thickening diffusely of the ascending colon to the proximal transverse colon. There is no significant small bowel dilatation. Normal caliber appendix is visualized. There is no free air or free fluid. There could be some other small bowel wall thickening of the left pelvic region although poorly characterized without oral contrast. No free air is identified. IMPRESSION: 1. There is fairly severe wall thickening diffusely of ascending colon to the proximal transverse colon, evidence of colitis. There is also relative wall thickening of the gastroduodenal junction and proximal duodenum suggestive of gastroduodenitis. 2. There is no CT evidence of acute appendicitis. 3. There is probable hepatic steatosis. 4. There is enhancing liver lesion of the right lobe, hemangioma favored although more definitively characterized by nonemergent MRI. Electronically signed by: Savi Kearney MD (11/14/2017 8:28 PM) [facility] DICTATED AND SIGNED BY: SAVI KEARNEY MD DATE: 11/14/172019 CC: ASHUTOSH PUGA; SUSY ORTIZ MD ~ [place] [address] IMAGING REPORT Signed PATIENT: RAINER QUESADA ACCOUNT: [id number] : 1965 LOCATION: ER AGE: 52 SEX: F EXAM STATUS: REG ER ORD. PHYSICIAN: SUSY ORTIZ MD REASON: altered mental status PROCEDURE: CT HEAD WO CONTRAST CT HEAD WO CONTRAST History: Altered mental status Comparison: None. Technique: Noncontrast CT imaging was performed of the head. Exposure: One or more of the following individualized dose reduction techniques were utilized for this examination: 1. Automated exposure control 2. Adjustment of the mA and/or kV according to patient size 3. Use of iterative reconstruction technique. Findings: No acute extra-axial or parenchymal hemorrhage is identified. There is no significant intra-axial mass effect, midline shift, or extra-axial fluid collection. The barry-white differentiation of the major vascular territories is preserved. The ventricles, sulci, and cisterns are within normal limits in size and configuration. The mastoid air cells and the visualized paranasal sinuses are aerated. No acute calvarial abnormality is identified. Impression: 1. No acute intracranial abnormality is identified. Electronically signed by: Savi Kearney MD (11/14/2017 6:30 PM) [facility] DICTATED AND SIGNED BY: SAVI KEARNEY MD DATE: 11/14/171827 CC: ASHUTOSH PUGA; SUSY ORTIZ MD ~ [] Course & Med Decision Making Course & Med Decision Making Pertinent Labs and Imaging studies reviewed. (See chart for details) Patient was started on IV banana bag, Zofran, Protonix, and required additional Phenergan for treatment of nausea. Despite treatment the patient is unable to tolerate oral intake at this time. Patient also displayed leukocytosis with leftward shift. CT imaging shows evidence of gastroduodenitis and colitis. Patient started on IV Flagyl and Levaquin. Patient will require admission to the hospital for further care. I spoke with Dr. Ybarra, hospitalist, who accepted care of patient in hospital. Dragon Disclaimer Dragon Disclaimer This electronic medical record was generated, in whole or in part, using a voice recognition dictation system. Departure Departure: Impression: Primary Impression: Colitis Additional Impressions: Intractable nausea and vomiting Alcohol intoxication Disposition: ADMITTED INPATIENT Admitting Physician: Ro Ybarra Condition: STABLE Referrals: ASHUTOSH PUGA (PCP) Problem Qualifiers Additional Impressions: Intractable nausea and vomiting Vomiting type: unspecified Qualified Codes: R11.2 - Nausea with vomiting, unspecified Alcohol intoxication Complication of substance-induced condition: with unspecified complication Qualified Codes: F10.929 - Alcohol use, unspecified with intoxication, unspecified SUSY ORTIZ MD Nov 14, 2017 18:34
[2017-11-14 18:45] LABS: ALBUMIN 4.4 g/dL (3.4-5.0); CALCIUM 8.5 mg/dL (8.5-10.1); CREATININE 0.9 mg/dL (0.6-1.0); DIRECT BILIRUBIN 0.1 mg/dL (0.0-0.2); GFR 65.5; POTASSIUM 3.5 mmol/L (3.5-5.1); TOTAL BILIRUBIN 0.2 mg/dL (0.2-1.0); TOTAL PROTEIN 8.6 g/dL (6.4-8.2)
[2017-11-14] MEDS ORDERED: PANTOPRAZOLE IV 40 MG VIAL. IVP ONE (18:45)
[2017-11-14] MEDS ORDERED: ONDANSETRON PF 4 MG/2 ML VIAL. IV ONE (18:45)
[2017-11-14 18:58] LABS: % BANDS 2 % (0-9); % LYMPHS 14 % (24-48); % MONOS 3 % (0-10); % SEGS 80 % (35-66)
[2017-11-14 19:00] LABS: PLT ESTIMATE ADEQUATE (ADEQUATE)
[2017-11-14 19:34] LABS: AMPHETAMINE/METHAMPHETAMINE NEG (NEG); BARBITURATES NEG (NEG); BENZODIAZEPINES NEG (NEG); CANNABINOIDS NEG (NEG); COCAINE NEG (NEG); METHADONE NEG (NEG); OPIATES NEG (NEG); PHENCYCLIDINE NEG (NEG)
[2017-11-14 19:38] LABS: BILIRUBIN,URINE NEG (NEG); CLARITY,URINE CLEAR; COLOR,URINE YELLOW; GLUCOSE,URINE NEG (NEG)
[2017-11-14 19:39] LABS: BACTERIA,URINE 0 /HPF (0-FEW); NITRITE,URINE NEG (NEG); RBC,URINE OCC /HPF (0-2); SQUAMOUS EPITHELIAL CELL,UR OCC /LPF; UROBILINOGEN,URINE 0.2 mg/dL (0.2 mg/dL); WBC,URINE RARE /HPF (0-4)
[2017-11-14 19:40] LABS: HYALINE CASTS, URINE OCC /HPF
[2017-11-14] MEDS ORDERED: IOHEXOL 300 MG/ML 75 ML VIAL. IV ONE (20:00)
--- NOTE | 2017-11-14 20:32 | RAD ---
CT abdomen and pelvis with contrast History: Upper abdominal pain, vomiting Technique: After the administration of intravenous contrast, CT imaging was performed of the abdomen and pelvis. No oral contrast was given as per request. Multiplanar images are reviewed. Exposure: One or more of the following individualized dose reduction techniques were utilized for this examination: 1. Automated exposure control 2. Adjustment of the mA and/or kV according to patient size 3. Use of iterative reconstruction technique. Contrast: 75 cc Omnipaque 300. Comparison: September 16, 2017 Findings: There is no significant abnormality of the visualized lung bases. There is no significant focal abnormality of the spleen, pancreas, adrenal glands. There may be hepatic steatosis. Both kidneys enhance without hydronephrosis. Incidental note is made of retroaortic left renal vein. There has been cholecystectomy. There is a hyperenhancing focus of nodularity of the right lobe the liver about 2.1 cm AP by 1.7 cm transverse by 2.6 cm CC, appearance of more peripheral nodular enhancement present. Accurate evaluation of bowel is limited without oral contrast. There is appearance of fairly severe wall thickening with some associated mucosal enhancement of the gastroduodenal junction and proximal duodenum. There is also wall thickening diffusely of the ascending colon to the proximal transverse colon. There is no significant small bowel dilatation. Normal caliber appendix is visualized. There is no free air or free fluid. There could be some other small bowel wall thickening of the left pelvic region although poorly characterized without oral contrast. No free air is identified. IMPRESSION: 1. There is fairly severe wall thickening diffusely of ascending colon to the proximal transverse colon, evidence of colitis. There is also relative wall thickening of the gastroduodenal junction and proximal duodenum suggestive of gastroduodenitis. 2. There is no CT evidence of acute appendicitis. 3. There is probable hepatic steatosis. 4. There is enhancing liver lesion of the right lobe, hemangioma favored although more definitively characterized by nonemergent MRI. Electronically signed by: Harrison Rdz MD (11/14/2017 8:28 PM) [facility]
[2017-11-14] MEDS ORDERED: PROMETHAZINE 25 MG/ML VIAL IV ONE (20:38)
[2017-11-14] MEDS ORDERED: PROMETHAZINE IM 25 MG/ML VIAL IM ONE (20:45)
[2017-11-14] MEDS ORDERED: ONDANSETRON PF 4 MG/2 ML VIAL. IV PRN (21:00)
[2017-11-14] MEDS ORDERED: LORazepam 2 MG/ML VIAL IV PRN (21:00)
[2017-11-14 23:52] VITALS: BP 135/71
[2017-11-15] VITALS (21 sets, daily range): BP systolic 89–126; BP diastolic 55–82
[2017-11-15] MEDS: LORazepam 2 MG/ML VIAL IV PRN ×6 (00:12→21:12)
[2017-11-15] MEDS: POTASSIUM CL 20MEQ D5-0.45NACL 1,000 ML IV SCH ×4 (00:12→20:59)
[2017-11-15 06:22] LABS: BASO % 0 % (0-3); EOS % 0 % (0-3); HEMATOCRIT 42.8 % (36.0-47.0); HEMOGLOBIN 14.3 g/dL (12.0-15.5); LYMPH # 1.1 x10^3/uL (1.0-4.8); LYMPH % 7 % (24-48); MEAN CORPUSCULAR HEMOGLOBIN 31 pg (25-35); MEAN CORPUSCULAR HGB CONC 33 g/dL (31-37); MEAN CORPUSCULAR VOLUME 93 fL (79-100); MONO # 1.3 x10^3/uL (0.0-1.1); MONO % 9 % (0-9); NEUT # 12.9 x10^3uL (1.8-7.7); NEUT % 84 % (31-73); PLATELET COUNT 294 x10^3/uL (140-400); RED BLOOD COUNT 4.59 x10^6/uL (3.50-5.40); RED CELL DISTRIBUTION WIDTH 14.2 % (11.5-14.5); WHITE BLOOD COUNT 15.3 x10^3/uL (4.0-11.0)
[2017-11-15 06:40] LABS: CALCIUM 8.4 mg/dL (8.5-10.1); CREATININE 0.9 mg/dL (0.6-1.0); GFR 65.5; POTASSIUM 4.8 mmol/L (3.5-5.1)
[2017-11-15] MEDS: LACTOBACILLUS RHAMNOSUS GG 1 CAPSULE. PO SCH ×2 (09:00→20:59)
[2017-11-15] MEDS: MVI, ADULT NO.4 WITH VIT K 10 ML, THIAMINE INJ 100 MG, FOLIC ACID INJ 1 MG in IV NORMAL... IV SCH ×4 (11:38)
--- NOTE | 2017-11-15 14:58 | HP ---
ADMIT DATE: 11/15/2017 HISTORY OF PRESENT ILLNESS: The patient is a 52-year-old female patient, who was brought to the Emergency Room by her with complaint of nausea and vomiting. She is known to have chronic alcoholism and has been bingeing of vodka over the last 5 days. Her stated that he has been traveling and arrives on the day of admission and find the patient vomiting and covered in urine. She apparently does not drink alcohol on a daily basis, but has multiple episodes of binge drinking. She denied any abdominal pain, but did have multiple episodes of vomiting and had had coffee-ground like emesis per and she has been admitted to this facility and also for rehab center numerous times and unfortunately she relapses after all this treatment. She was extensively investigated in the Emergency Room. Her blood alcohol level was high at 244. She was found to have marked leukocytosis and she was acidotic with high anion gap and apparently had had a CT scan of the abdomen and pelvis, which showed that there is fairly severe wall thickening, diffusely of ascending colon to the proximal transverse colon, evidence consistent with colitis. There is also relative wall thickening of the gastroduodenal junction and proximal duodenum suggestive of gastroduodenitis. There is no CT scan evidence of acute appendicitis probable hepatic steatosis. There is enhancing liver lesions of the right lobe, hemangioma favored, although more definitively characterized by nonemergent MRI. The patient was admitted to the ICU and was started on levofloxacin as well as Flagyl for colitis together with alcohol withdrawal protocol. PAST MEDICAL HISTORY: Significant for depression, anxiety, and obviously alcoholism. PAST SURGICAL HISTORY: Significant for cholecystectomy and esophagogastroduodenoscopy. ALLERGIES: She has no known drug allergies. MEDICATIONS: She is on Lexapro 10 mg once a day, trazodone 150 mg at bedtime. She is also supposed to be on disulfiram 250 mg daily and Latuda 40 mg daily. FAMILY HISTORY: Unremarkable. SOCIAL HISTORY: She is , has 2 sons and 1 daughter. 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 REVIEW OF SYSTEMS: As per history of present illness. PHYSICAL EXAMINATION: GENERAL: On arrival to the Emergency Room, she looked well and was clearly in no apparent respiratory distress. There was no pallor, jaundice or cyanosis. No lymphadenopathy, no thyromegaly. No jugular venous distension. No lower limb edema. VITAL SIGNS: Her heart rate on arrival was 82. In fact, her heart rate on arrival was 140, blood pressure 154/91, temperature was 98.1, respiratory rate was 18 and oxygen saturation was 97% on room air. HEAD, EYES, EARS, NOSE, AND THROAT: Showed normocephalic, atraumatic. NECK: Supple. HEART: Showed normal first and second heart sounds. No gallop, rub or murmur. CHEST: Clear to auscultation. No crepitation or rhonchi. ABDOMEN: Soft, nontender. No guarding or rigidity. No organomegaly. All hernial orifice intact. Bowel sounds normal. NEUROLOGIC: She was alert, oriented x 3. All her cranial nerves are intact. EXTREMITIES: She moves extremities without difficulty. The examination of the extremities showed no clubbing or cyanosis with intact range of movement. LABORATORY DATA: On arrival to the Emergency Room showed a white cell count of 15,300, hemoglobin 16, hematocrit 48, MCV 94 and platelet count of 374,000. Her chemistry showed a serum sodium 141, potassium 3.5, chloride 102, bicarbonate 17, anion gap of 22, BUN 18, creatinine was 0.8, estimated GFR was 65 mL per minute. Her glucose was 59. Calcium was 8.5, magnesium was 2. Total bilirubin, AST, ALT, alkaline phosphatase were normal. Total protein was 8.6, albumin was 4.4 and lipase was 159. Her prothrombin time was 9.4, INR of 0.9, aPTT was 21. Urinalysis showed the urine was yellow, clear with a pH of 5, specific gravity of 1.030. The urine was positive for protein, negative for glucose. There was a large amount of ketones, trace of blood, negative for nitrite and leukocyte esterase. There are no RBCs, no WBCs and very few bacteria. Her urine toxicology screen showed that her blood alcohol level was 244 mg/dL. It was negative for opiates, methadone, barbiturates, phencyclidine, amphetamine, methamphetamine, benzodiazepine, cocaine, and cannabinoid. Her CT scan of the head showed that there is no acute extraaxial or parenchymal hemorrhage is identified. There is no significant intraaxial or mass effect, midline shift or extraaxial fluid collection. The barry white matter differentiation of the major vascular territories is preserved. The ventricles, sulci and cisterns are within normal limits in size and configuration. The mastoid air cells and the visualized paranasal sinuses are aerated. No acute calvarial abnormalities identified. CT scan of the abdomen and pelvis showed that there is fairly severe wall thickening diffusely of ascending colon to the proximal transverse colon, evidence of colitis with ulcerative wall thickening of the gastroduodenal junction and proximal duodenum suggestive of gastroduodenitis. There is no CT evidence of acute appendicitis. There is a probable hepatic steatosis. There is probable hepatic steatosis. There is enhancing liver lesions at the right lobe, hemangioma is favored, although more definitively characterized by an emergent MRI. ASSESSMENT AND SUMMARY: This is a 52-year-old female patient, who was admitted with acute alcoholism with recurrent bouts of nausea, vomiting. She was found to have diffuse colitis. She was started on Levaquin and Flagyl and she was also started on alcohol withdrawal protocol. Given her high blood alcohol level she might have disulfiram reaction, so her Flagyl was put on hold, who will continue with the current therapy for now. Repeat all her lab works tomorrow and once her blood alcohol level improves, we might restart her on Flagyl. LANCE SIMON MD DR: HECTOR/benedicto JOB#: [id number] / [id number]
--- NOTE | 2017-11-15 23:53 | PN ---
DATE: 11/15/2017 SUBJECTIVE: The patient is resting almost flat in bed, in no apparent distress. She has had no further episodes of nausea or vomiting. Denied any diarrhea. Denied any abdominal pain. OBJECTIVE: GENERAL: On examining her, she looked well and was clearly in no apparent respiratory distress. No pallor, jaundice, cyanosis, lymphadenopathy or thyromegaly. No jugular venous distension. No lower limb edema. VITAL SIGNS: Her heart rate was 95, blood pressure was 109/82, temperature was 97.7, respiratory rate was 18 and oxygen saturation was 99%. HEAD, EYES, EARS, NOSE AND THROAT: Showed normocephalic, atraumatic. NECK: Supple. HEART: Showed normal first and second heart sounds. No gallop, rub or murmur. CHEST: Clear to auscultation. No crepitation or rhonchi. ABDOMEN: Distended, soft, nontender. No guarding or rigidity. No organomegaly. Hernial orifice intact. Bowel sounds normal. NEUROLOGIC: She was awake, alert, responding appropriately. Cranial nerves intact. She moves extremities without difficulty. Her intake was 1200, no output was recorded. LABORATORY DATA: Her lab work this morning showed a white cell count of 15,300, hemoglobin 14, hematocrit 42, MCV 83 and a platelet count of 294,000 with a manual differential that showed 84% polymorphs, 7% lymphocytes and 9% monocytes. ASSESSMENT: 1. Alcohol intoxication and chronic alcoholism. 2. Acute colitis. PLAN: My plan is to check her blood alcohol level and if it is undetectable, we will continue with Flagyl and Levaquin. Continue with the alcohol withdrawal protocol, start her on a clear liquid diet and advance as tolerated tomorrow and if she is able to tolerate her food and has no further episodes of nausea or vomiting, she can be discharged home to continue on oral antibiotics. LANCE SIMON MD DR: HECTOR/benedicto JOB#: [id number] / [id number]
[2017-11-16] VITALS (12 sets, daily range): BP systolic 85–121; BP diastolic 54–85
[2017-11-16] MEDS: POTASSIUM CL 20MEQ D5-0.45NACL 1,000 ML IV SCH ×4 (05:00→19:58)
[2017-11-16] MEDS: LORazepam 2 MG/ML VIAL IV PRN ×4 (06:40→19:59)
[2017-11-16 07:13] LABS: HEMATOCRIT 36.8 % (36.0-47.0); HEMOGLOBIN 12.6 g/dL (12.0-15.5); RED CELL DISTRIBUTION WIDTH 13.6 % (11.5-14.5); WHITE BLOOD COUNT 9.7 x10^3/uL (4.0-11.0)
[2017-11-16 07:15] LABS: CALCIUM 8.5 mg/dL (8.5-10.1); CREATININE 0.7 mg/dL (0.6-1.0); GFR 87.5; POTASSIUM 3.9 mmol/L (3.5-5.1); TOTAL BILIRUBIN 0.8 mg/dL (0.2-1.0)
[2017-11-16] MEDS: MVI, ADULT NO.4 WITH VIT K 10 ML, THIAMINE INJ 100 MG, FOLIC ACID INJ 1 MG in IV NORMAL... IV SCH ×4 (08:00)
[2017-11-16] MEDS: LACTOBACILLUS RHAMNOSUS GG 1 CAPSULE. PO SCH ×2 (08:58→19:58)
--- NOTE | 2017-11-16 12:50 | PN ---
DATE: 11/16/2017 SUBJECTIVE: The patient is resting slightly propped up in bed, in no apparent respiratory distress. She continues to be tremulous and has had no further episodes of nausea, vomiting, no abdominal pain, no diarrhea. OBJECTIVE: GENERAL: When I examined her this morning, she looked pale. There is no pallor, jaundice or cyanosis. No lymphadenopathy, no thyromegaly. No jugular venous distension. No lower limb edema. VITAL SIGNS: Her heart rate was 97. Blood pressure was 86/54, temperature was 97, respiratory rate was 18 and oxygen saturation was 98% on room air. HEAD, EYES, EARS, NOSE AND THROAT: Showed she is normocephalic, atraumatic. NECK: Supple. HEART: Showed normal first and second heart sounds with no gallop, rub or murmur. CHEST: Clear to auscultation. No crepitation or rhonchi. ABDOMEN: Scaphoid, soft, nontender. No guarding or rigidity. No organomegaly. Hernial orifices intact. Bowel sounds normal. NEUROLOGIC: She was awake, alert, responding appropriately. All cranial nerves intact. She moves extremities without difficulty. Her intake was 1450, no output recorded. LABORATORY DATA: Her lab work this morning showed a white cell count down to 9,700, hemoglobin was 12.6, hematocrit 36, MCV 92, and platelet count of 215,000. Serum sodium is 138, potassium 3.9, chloride 106, bicarbonate 27, anion gap of 5, BUN 8, creatinine 0.7, estimated GFR was 87.5 mL per minute, glucose 117, calcium was 8.5. Total bilirubin, AST, ALT, alkaline phosphatase were normal. Total protein was 6, albumin was 3. ASSESSMENT: 1. Alcohol intoxication, alcohol withdrawal. 2. Acute infectious colitis, seems to be responding. PLAN: To continue with the IV Flagyl and Levaquin. Continue with the alcohol withdrawal protocol. We will hopefully discharge her back home tomorrow. LANCE SIMON MD DR: HECTOR/benedicto JOB#: [id number] / [id number]
[2017-11-17 04:22] VITALS: BP 109/71
[2017-11-17] MEDS: POTASSIUM CL 20MEQ D5-0.45NACL 1,000 ML IV SCH (05:00)
[2017-11-17 06:55] LABS: CALCIUM 8.4 mg/dL (8.5-10.1); CREATININE 0.6 mg/dL (0.6-1.0); GFR 104.6; POTASSIUM 3.9 mmol/L (3.5-5.1)
[2017-11-17] MEDS: LACTOBACILLUS RHAMNOSUS GG 1 CAPSULE. PO SCH (08:01)
[2017-11-17] MEDS: LORazepam 2 MG/ML VIAL IV PRN (08:03)
[2017-11-17] MEDS: MVI, ADULT NO.4 WITH VIT K 10 ML, THIAMINE INJ 100 MG, FOLIC ACID INJ 1 MG in IV NORMAL... IV SCH ×4 (09:00)
[2017-11-17] MEDS ORDERED: LEVO500T59 PO (09:01)
[2017-11-17] MEDS ORDERED: METR250T PO (09:01)
--- NOTE | 2017-11-17 09:44 | DS ---
DATE OF DISCHARGE: 11/17/2017 HISTORY OF PRESENT ILLNESS: The patient is a 52-year-old female patient, who yet again came with another episode of alcohol intoxication. She did complain of nausea, vomiting. She has been bingeing on vodka over the last 5 days; however, she denied any abdominal pain, did complain of multiple episodes of nausea and vomiting, had coffee-ground like emesis per . Her blood alcohol level was high at 244. She has marked leukocytosis and she has acidotic high anion gap and apparently has had a CT scan of the abdomen and pelvis, which showed that she has fairly severe wall thickening diffusely of ascending colon and proximal transverse colon, evidence consistent with colitis. There is also relative wall thickening of the gastroduodenal junction and proximal duodenum. She just have gastroduodenitis. There is no CT scan evidence of acute appendicitis. She was started on alcohol withdrawal protocol as well as IV Flagyl and Levaquin and did well. PHYSICAL EXAMINATION: GENERAL: When I saw her today, she looked well and was clearly in no apparent respiratory distress. No pallor, jaundice, cyanosis, or thyromegaly. No jugular venous distention. No limb edema. VITAL SIGNS: Her heart rate was 67, blood pressure is 109/71, temperature was 98, respiratory rate was 16, and oxygen saturation was 98%. HEAD, EYES, EARS, NOSE AND THROAT: Showed normocephalic, atraumatic. NECK: Supple. HEART: Showed normal first and second heart sounds with no gallop, rub or murmur. CHEST: Clear to auscultation. No crepitation or rhonchi. ABDOMEN: Distended, soft, nontender. No guarding or rigidity. No organomegaly. All hernial orifice intact. Bowel sounds normal. NEUROLOGIC: She is awake, alert, responding appropriately. All her cranial nerves intact. She moves extremities without difficulty. The patient has no evidence of any tremors or evidence of alcohol withdrawal. Her intake and output was 2118 output was recorded. LABORATORY DATA: Her lab work this morning showed a white cell count of 9700, hemoglobin 12.6, hematocrit 36.8, MCV 92, and platelet count 215,000. Her chemistry showed a serum sodium 141, potassium 3.9, chloride 108, bicarbonate 31, anion gap of 2, BUN 5, creatinine was 0.6, estimated GFR was 104 mL per minute. Her glucose 117, calcium was 8.4, magnesium was 2. DISCHARGE MEDICATIONS: The patient was discharged home to continue on her levofloxacin 500 mg once a day for 5 days as well as Flagyl 250 mg 3 times a day, escitalopram oxalate 10 mg once a day and trazodone 150 mg at bedtime. HOSPITAL COURSE: The patient was warned that she should not drink; however, the next 5 days there is a severe disulfiram reaction if she continues to be on metronidazole and drinking. FINAL DISCHARGE DIAGNOSES: Alcohol intoxication, alcohol withdrawal, severe infectious colitis. LANCE SIMON MD DR: HECTOR/benedicto JOB#: [id number] / [id number]
== END 2017-11-17 10:30 | disposition home or self-care (01) | DRG 872 ==
LOC: ER 17:58 → ICU 20:43 → 1 SOUTH 11-16 09:55
PROVIDERS: ADMIT Internal Medicine; ATTEND Internal Medicine
DX: A41.9 Sepsis, unspecified organism (principal); A09 Infectious gastroenteritis and colitis, unspecified; F10.239 Alcohol dependence with withdrawal, unspecified; D18.03 Hemangioma of intra-abdominal structures; F10.229 Alcohol dependence with intoxication, unspecified; F17.200 Nicotine dependence, unspecified, uncomplicated; K29.90 Gastroduodenitis, unspecified, without bleeding; K76.0 Fatty (change of) liver, not elsewhere classified; F32.9 Major depressive disorder, single episode, unspecified; F41.9 Anxiety disorder, unspecified; Z90.49 Acquired absence of other specified parts of digestive tract; Z79.899 Other long term (current) drug therapy
CPT/HCPCS: 36415; 70450; 74177; 80048; 80053; 80076; 80307; 81001; 83690; 83735; 85007; 85025; 85027; 85610; 85730; 87641; 90471; 90756; 93005; 96365; 96366; 96368; 96372; 96375; C9113; G0480; J1956; J2060; J2405; J2550; J3490; Q9967; 99285-25; G0479; J7030; Q2035

== ENCOUNTER 2017-12-10 13:52 | Emergency (ER) | payer OTHER ==
[~2017-12-10] VITALS: Ht 170.2 cm; Wt 56.0 kg
[~2017-12-10 13:52] MED LIST changes: +LEVO500T59 PO; +METR250T PO
--- NOTE | 2017-12-10 15:08 | ED.ADGEN ---
Past History Past Medical History: Alcoholism, Pancreatitis, Other Past Surgical History: Cholecystectomy Alcohol Use: Heavy Drug Use: None Adult General Chief Complaint Chief Complaint Alcohol abuse and intoxication HPI HPI Patient is a 52-year-old female presents with reported blackout episode while at work. Patient was found passed out in the workplace bathroom with empty bottle of liquor. Patient has a history of chronic alcoholism and has been drinking heavily for the past several months. She states she is under increased stress due to relationship strain with her spouse. Reports depression , denies suicidal thoughts or intent. She does see a counselor routine basis as an outpatient on post. No chest pain palpitations, headache. No other acute symptoms or complaints. 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 [] Review of Systems Review of Systems ROS as per HPI All other systems were reviewed and found to be within normal limits, except as documented in this note. Current Medications Current Medications Current Medications Medications (Trade) Dose Ordered Sig/Master Start Time Stop Time Status Last Admin Dose Admin Famotidine (Pepcid Vial) 20 mg 1X ONCE 12/10/17 15:15 12/10/17 15:16 DC 12/10/17 15:41 20 MG Multivitamins/ Minerals 10 ml/ Folic Acid 1 mg/ Thiamine HCl 100 mg/Lactated Ringer's 1,011.2 ml @ 1,011.2 mls/hr 1X ONCE 12/10/17 15:45 12/10/17 16:44 DC 12/10/17 15:41 1,011.2 MLS/HR Ondansetron HCl (Zofran) 4 mg 1X ONCE 12/10/17 15:15 12/10/17 15:16 DC 12/10/17 15:41 4 MG Allergies Allergies Allergies Coded Allergies Type Severity Reaction Last Updated Verified No Known Drug Allergies 08/12/15 No Physical Exam Physical Exam Constitutional: Well developed, well nourished, smells of EtOH intoxicants. [] HENT: Normocephalic, atraumatic, bilateral external ears normal, oropharynx moist, no oral exudates, nose normal. [] Eyes: PERRLA, EOMI, conjunctiva injected. [] Neck: Normal range of motion, no tenderness, supple, no stridor. [] Cardiovascular:Heart rate regular rhythm, no murmur [] Lungs & Thorax: Bilateral breath sounds clear to auscultation [] Abdomen: Bowel sounds normal, soft, no tenderness. [] Skin: Warm, dry, no erythema, no rash. [] Back: No tenderness. [] Extremities: No tenderness, no cyanosis. [] Neurologic: Alert and oriented X 3, normal motor function, normal sensory function, no focal deficits noted. [] Psychologic: Affect, flat, tearful. No HI or SI. Current Patient Data Vital Signs Vital Signs Date Time Temp Pulse Resp B/P (MAP) Pulse Ox O2 Delivery O2 Flow Rate FiO2 12/10/17 16:50 92 16 101/65 (77) 93 12/10/17 13:56 98.2 Room Air Lab Results Laboratory Tests Test 12/10/17 15:18 White Blood Count 6.0 x10^3/uL (4.0-11.0) Red Blood Count 4.23 x10^6/uL (3.50-5.40) Hemoglobin 13.5 g/dL (12.0-15.5) Hematocrit 38.9 % (36.0-47.0) Mean Corpuscular Volume 92 fL (79-100) Mean Corpuscular Hemoglobin 32 pg (25-35) Mean Corpuscular Hemoglobin Concent 35 g/dL (31-37) Red Cell Distribution Width 14.2 % (11.5-14.5) Platelet Count 308 x10^3/uL (140-400) Neutrophils (%) (Auto) 60 % (31-73) Lymphocytes (%) (Auto) 34 % (24-48) Monocytes (%) (Auto) 4 % (0-9) Eosinophils (%) (Auto) 1 % (0-3) Basophils (%) (Auto) 1 % (0-3) Neutrophils # (Auto) 3.6 x10^3uL (1.8-7.7) Lymphocytes # (Auto) 2.0 x10^3/uL (1.0-4.8) Monocytes # (Auto) 0.3 x10^3/uL (0.0-1.1) Eosinophils # (Auto) 0.1 x10^3/uL (0.0-0.7) Basophils # (Auto) 0.1 x10^3/uL (0.0-0.2) Sodium Level 142 mmol/L (136-145) Potassium Level 3.8 mmol/L (3.5-5.1) Chloride Level 104 mmol/L (98-107) Carbon Dioxide Level 28 mmol/L (21-32) Anion Gap 10 (6-14) Blood Urea Nitrogen 17 mg/dL (7-20) Creatinine 0.8 mg/dL (0.6-1.0) Estimated GFR (Cockcroft-Gault) 75.0 BUN/Creatinine Ratio 21 (6-20) H Glucose Level 97 mg/dL (70-99) Calcium Level 8.4 mg/dL (8.5-10.1) L Magnesium Level 2.2 mg/dL (1.8-2.4) Total Bilirubin 0.2 mg/dL (0.2-1.0) Aspartate Amino Transferase (AST) 31 U/L (15-37) Alanine Aminotransferase (ALT) 25 U/L (14-59) Alkaline Phosphatase 83 U/L (46-116) Total Protein 7.3 g/dL (6.4-8.2) Albumin 3.7 g/dL (3.4-5.0) Albumin/Globulin Ratio 1.0 (1.0-1.7) Ethyl Alcohol Level 294 mg/dL (0-10) H EKG EKG [EKG: Normal sinus rhythm.] Radiology/Procedures Radiology/Procedures [] Course & Med Decision Making Course & Med Decision Making Pertinent Labs and Imaging studies reviewed. (See chart for details) [Patient with mood disorder, chronic alcohol abuse requesting inpatient detox. Basic labs obtained. Calls made to local facilities and are pending at this time. [facility] to oncoming ERP with final disposition pending. If possible, the patient will be transferred to local outpatient detox facility. Otherwise, patient and family referred to go home and make their own arrangements for detox ] Final Impression Final Impression [1. Alcohol intox and abuse] Dragon Disclaimer Dragon Disclaimer This electronic medical record was generated, in whole or in part, using a voice recognition dictation system. ESTELLA WEI DO Dec 10, 2017 15:08
[2017-12-10] MEDS ORDERED: FAMOTIDINE 20 MG/2 ML VIAL IVP ONE (15:15)
[2017-12-10] MEDS ORDERED: ONDANSETRON PF 4 MG/2 ML VIAL. IV ONE (15:15)
[2017-12-10 15:33] LABS: BASO # 0.1 x10^3/uL (0.0-0.2); BASO % 1 % (0-3); EOS # 0.1 x10^3/uL (0.0-0.7); EOS % 1 % (0-3); HEMATOCRIT 38.9 % (36.0-47.0); HEMOGLOBIN 13.5 g/dL (12.0-15.5); LYMPH % 34 % (24-48); MEAN CORPUSCULAR HEMOGLOBIN 32 pg (25-35); MEAN CORPUSCULAR HGB CONC 35 g/dL (31-37); MEAN CORPUSCULAR VOLUME 92 fL (79-100); MONO # 0.3 x10^3/uL (0.0-1.1); MONO % 4 % (0-9); NEUT # 3.6 x10^3uL (1.8-7.7); NEUT % 60 % (31-73); PLATELET COUNT 308 x10^3/uL (140-400); RED BLOOD COUNT 4.23 x10^6/uL (3.50-5.40); RED CELL DISTRIBUTION WIDTH 14.2 % (11.5-14.5)
[2017-12-10] MEDS ORDERED: MVI, ADULT NO.4 WITH VIT K 10 ML, FOLIC ACID SYRINGE for ER 1 MG, THIAMINE INJ 100 MG i... IV ONE ×4 (15:45)
[2017-12-10 15:49] LABS: ALBUMIN 3.7 g/dL (3.4-5.0); CALCIUM 8.4 mg/dL (8.5-10.1); CREATININE 0.8 mg/dL (0.6-1.0); MAGNESIUM 2.2 mg/dL (1.8-2.4); POTASSIUM 3.8 mmol/L (3.5-5.1); TOTAL BILIRUBIN 0.2 mg/dL (0.2-1.0); TOTAL PROTEIN 7.3 g/dL (6.4-8.2)
--- NOTE | 2017-12-10 16:55 | EKG ---
[address] [address] Test Date: 2017-12-10 Test Time: 16:50:27 Pat Name: RAINER QUESADA Department: Room: Gender: F Smooth Plater: : 1965 Requested By: ESTELLA EWI Order Number: [id number] Reading MD: Aidan Ro MD Measurements Intervals [place] Rate: 89 P: 28 SD: 164 QRS: 25 QRSD: 82 T: 16 QT: 376 QTc: 459 Interpretive Statements SINUS RHYTHM Electronically Signed On 12-11-2017 11:25:54 CDT by Aidan Ro MD
[2017-12-10 19:17] VITALS: BP 139/58
== END 2017-12-10 19:24 | disposition home or self-care (01) ==
LOC: ER 13:52
DX: F10.129 Alcohol abuse with intoxication, unspecified (principal); F43.8 Other reactions to severe stress; Y90.7 Blood alcohol level of 200-239 mg/100 ml
CPT/HCPCS: 36415; 80053; 83735; 85025; 93005; 96365; 96375; 99285; G0480; J2405; J7120; S0028

== ENCOUNTER 2018-06-11 15:29 | Emergency (ER) | payer OTHER ==
[~2018-06-11] VITALS: Ht 170.2 cm; Wt 59.0 kg
[~2018-06-11 15:29] MED LIST changes: +CLON1TAB11 PO; -CLON1TAB4 PO; +TRAZ-120 PO; -TRAZ-85 PO
[2018-06-11] MEDS ORDERED: IBUPROFEN 600 MG TABLET. PO ONE (15:45)
--- NOTE | 2018-06-11 15:47 | PHYS DOC ---
Past History Past Medical History: Alcoholism, Depression, Pancreatitis, Other Past Surgical History: Cholecystectomy Smoking: Cigarettes, Less than 1pk/day Alcohol Use: Sober Drug Use: None Adult General Chief Complaint Chief Complaint: FOOT INJURY PAIN HPI HPI Patient is a 53-year-old female presents complaining of left foot pain. Patient slipped while walking on [employer] and wearing thong sandals. She had an inversion mechanism injury. Reports that her toes worse bleed out in different directions but that his been doing better. She is unable to weight-bear on the forefoot. Eyes any other injuries with the fall. Denies any head injury or wrist injury from catching herself. Denies any nausea or vomiting. Patient has taken no medicine for pain. This happened less than an hour prior to arrival.[] Review of Systems Review of Systems Constitutional: Denies fever or chills [] Eyes: Denies change in visual acuity, redness, or eye pain [] HENT: Denies nasal congestion or sore throat [] Respiratory: Denies cough or shortness of breath [] Cardiovascular: No chest pain or palpitations[] GI: Denies abdominal pain, nausea, vomiting, bloody stools or diarrhea [] : Denies dysuria or hematuria [] Musculoskeletal: Denies back pain must see history of present illness[] Integument: Denies rash or skin lesions [] Neurologic: Denies headache, focal weakness or sensory changes [] Endocrine: Denies polyuria or polydipsia [] All other systems were reviewed and found to be within normal limits, except as documented in this note. Allergies Allergies Allergies Coded Allergies Type Severity Reaction Last Updated Verified No Known Drug Allergies 08/12/15 No Physical Exam Physical Exam Constitutional: Well developed, well nourished, no acute distress, non-toxic appearance. [] HENT: Normocephalic, atraumatic, bilateral external ears normal, oropharynx moist, no oral exudates, nose normal. [] Eyes: PERRLA, EOMI, conjunctiva normal, no discharge. [] Neck: Normal range of motion, no tenderness, supple, no stridor. [] Cardiovascular:Heart rate regular rhythm, no murmur [] Lungs & Thorax: Bilateral breath sounds clear to auscultation [] Abdomen: Not Examined. [] Skin: Warm, dry, no erythema, no rash. [] Back: No tenderness, no CVA tenderness. [] Extremities: Left foot has tenderness to palpation in the distal metatarsal region of the first and second toe. There is no ankle tenderness. There is some swelling, no bruising, patient is distal neurovascularly intact. No base of the fifth metatarsal tenderness. The other 3 extremities show: No tenderness, no cyanosis, no clubbing, ROM intact, no edema. [] Neurologic: Alert and oriented X 3, normal motor function, normal sensory function, no focal deficits noted. [] Psychologic: Affect normal, judgement normal, mood normal. [] EKG EKG [] Radiology/Procedures Radiology/Procedures Left foot x-ray shows a fracture of the distal second metacarpal and proximal one third of the third metacarpal with angulation[] Course & Med Decision Making Course & Med Decision Making Pertinent Labs and Imaging studies reviewed. (See chart for details) Medical decision making: Patient has fracture as noted above of her left foot. She is distally neurovascularly intact. There is no open fracture. ED course: Patient arrived, was placed in bed, and tolerated exam well. He was transported to and from radiology with any complications. After the return of the imaging findings, consultation was made with Dr. Walter of orthopedic surgery, who recommended splint versus postop shoe as well as crutches. And he will follow up with her as an outpatient. Discussed findings and plan with patient and family. They voiced understanding. Patient was distally neurovascularly intact after postop shoe was applied. She was discharged in improved condition.[] Dragon Disclaimer Dragon Disclaimer This electronic medical record was generated, in whole or in part, using a voice recognition dictation system. Departure Departure: Impression: Primary Impression: Foot fracture, left Disposition: HOME, SELF-CARE Condition: STABLE Referrals: ASHUTOSH PUGA (PCP) FELIPE STONE MD Call today or tomorrow to set up appointment. Left them know that sugar care was discussed with Dr. Stone while you're in the emergency department Patient Instructions: Crutch Use, Foot Fracture Additional Instructions: Follow-up with your regular doctor as well as orthopedic surgery. Call orthopedic surgery for appointment today when you get home or tomorrow morning. Limit weightbearing of your left foot. Take the medication as prescribed. Return to the ER if worsening pain or any other concerns. Scripts Hydrocodone Bit/Acetaminophen (NORCO 5-325 TABLET) 1 Each Tablet 1-2 TAB PO Q4-6HRS for severe pain, #20 TAB Prov: CAROLYNE COOPER DO 06/11/18 Meloxicam (MELOXICAM) 7.5 Mg Tablet 7.5 MG PO DAILY for PAIN, #20 TAB Prov: CAROLYNE COOPER DO 06/11/18 Problem Qualifiers Primary Impression: Foot fracture, left Encounter type: initial encounter Fracture type: closed Qualified Codes: S92.902A - Unspecified fracture of left foot, initial encounter for closed fracture CAROLYNE COOPER DO Jun 11, 2018 15:47
[2018-06-11] MEDS ORDERED: MELO7.5T29 PO (16:24)
[2018-06-11] MEDS ORDERED: HYDR-3165 PO (16:24)
--- NOTE | 2018-06-11 16:41 | RAD ---
3 view study of the left foot Clinical indications: Fall today. Pain. FINDINGS: There is a comminuted fracture of the proximal through mid shaft of the third metatarsal bone. There is no displacement but there is medial angulation of the apex of the fracture. There is a comminuted fracture of the distal shaft and distal metaphysis of the second metatarsal bone. No displacement or angulation is seen. No dislocation is seen. No lytic process is seen IMPRESSION: Posttraumatic fractures of the second and third metatarsal bones of the left foot. Electronically signed by: Eddie Villalta MD (06/11/2018 4:38 PM) [facility]
[2018-06-11 17:05] VITALS: BP 121/80
== END 2018-06-11 17:00 | disposition home or self-care (01) ==
LOC: ER 15:29
DX: S92.322A Displaced fracture of second metatarsal bone, left foot, initial encounter for closed fracture (principal); S92.332A Displaced fracture of third metatarsal bone, left foot, initial encounter for closed fracture; F10.20 Alcohol dependence, uncomplicated; F32.9 Major depressive disorder, single episode, unspecified; F17.210 Nicotine dependence, cigarettes, uncomplicated; Y90.9 Presence of alcohol in blood, level not specified; X50.9XXA Other and unspecified overexertion or strenuous movements or postures, initial encounter; Y93.01 Activity, walking, marching and hiking; Y92.89 Other specified places as the place of occurrence of the external cause; Y99.8 Other external cause status
CPT/HCPCS: 73630; 99284

== ENCOUNTER 2018-08-04 09:05 | Emergency (ER) | payer OTHER ==
[~2018-08-04] VITALS: Ht 170.2 cm; Wt 61.7 kg
[~2018-08-04 09:05] MED LIST changes: +HYDR-3165 PO; +MELO7.5T29 PO
[2018-08-04 09:10] VITALS: BP 141/80
[2018-08-04] MEDS ORDERED: PROM25SU32 RC (09:30)
[2018-08-04] MEDS ORDERED: LORA2TAB PO (09:30)
--- NOTE | 2018-08-04 09:30 | PHYS DOC ---
Past History Past Medical History: Alcoholism, Depression, Pancreatitis, Other Past Surgical History: Cholecystectomy Smoking: Cigarettes, Less than 1pk/day Alcohol Use: Sober Drug Use: None Adult General Chief Complaint Chief Complaint: ABDOMINAL PAIN HPI HPI 53-year-old alcoholic female presents today secondary to alcohol withdrawal. She states she is motivated to be off of alcohol. In the past, she has been to multiple rehabs. Today she states that she couldn't stand the withdrawal symptoms so she drank liquor and beer. Her symptoms are nausea vomiting shaking. She's not had any seizures. She states in the past she has been successful with Ativan but does not have any to help at this time. She denies any suicidal or homicidal ideation[] Review of Systems Review of Systems Constitutional: Reports chills[] Eyes: Denies change in visual acuity, redness, or eye pain [] HENT: Denies nasal congestion or sore throat [] Respiratory: Denies cough or shortness of breath [] Cardiovascular: No additional information not addressed in HPI [] GI: Reports nausea and vomiting[] : Denies dysuria or hematuria [] Musculoskeletal: Denies back pain or joint pain [] Integument: Denies rash or skin lesions [] Neurologic: Denies headache, focal weakness or sensory changes [] Endocrine: Denies polyuria or polydipsia [] All other systems were reviewed and found to be within normal limits, except as documented in this note. Current Medications Current Medications Current Medications Medications (Trade) Dose Ordered Sig/Master Start Time Stop Time Status Last Admin Dose Admin Chlordiazepoxide (Librium) 50 mg 1X ONCE 08/04/18 09:30 08/04/18 09:31 UNV Promethazine HCl (Phenergan) 25 mg 1X ONCE 08/04/18 09:30 08/04/18 09:31 UNV Allergies Allergies Allergies Coded Allergies Type Severity Reaction Last Updated Verified No Known Drug Allergies 08/12/15 No Physical Exam Physical Exam Constitutional: Well developed, well nourished, mild distress, non-toxic appearance, smells of alcohol. [] HENT: Normocephalic, atraumatic, bilateral external ears normal, oropharynx moist, no oral exudates, nose normal. [] Eyes: PERRLA, EOMI, conjunctiva normal, no discharge. [] Neck: Normal range of motion, no tenderness, supple, no stridor. [] Cardiovascular: Tachycardic[] Lungs & Thorax: Bilateral breath sounds clear to auscultation [] Abdomen: Bowel sounds normal, soft, no tenderness, no masses, no pulsatile masses. [] Skin: Warm, dry, no erythema, no rash. [] Back: No tenderness, no CVA tenderness. [] Extremities: No tenderness, no cyanosis, no clubbing, ROM intact, no edema. [] Neurologic: Alert and oriented X 3, normal motor function, normal sensory function, no focal deficits noted. [] Psychologic: Extremely anxious[] EKG EKG [] Radiology/Procedures Radiology/Procedures [] Course & Med Decision Making Course & Med Decision Making Pertinent Labs and Imaging studies reviewed. (See chart for details) [ED course: Evaluation reveals a 53-year-old alcoholic female with CIWA score of 9. I ordered her longer acting benzodiazepine to take along with some Phenergan which she states really helps her nausea. I feel comfortable providing her with a four-day Ativan taper to see if she can get through her withdrawal symptoms.] Dragon Disclaimer Dragon Disclaimer This electronic medical record was generated, in whole or in part, using a voice recognition dictation system. Departure Departure: Impression: Primary Impression: Alcohol withdrawal Disposition: 01 HOME, SELF-CARE Condition: STABLE Referrals: ASHUTOSH PUGA (PCP) Patient Instructions: Alcohol Withdrawal Additional Instructions: Take medication only as directed. Return to the emergency department if your symptoms aren't considerably better in the next 12 hours. Scripts Promethazine HCl (Phenergan) 25 Mg Supp.rect 25 MG RC BID for nausea, #6 SUPP.RECT Prov: TL ELLINGTON DO 08/04/18 Lorazepam (LORAZEPAM) 2 Mg Tablet 1 TAB PO TID for alcohol withdrawal for 5 Days, #15 TAB Prov: TL ELLINGTON DO 08/04/18 Problem Qualifiers Primary Impression: Alcohol withdrawal Complication of substance-induced condition: uncomplicated Qualified Codes: F10.230 - Alcohol dependence with withdrawal, uncomplicated TL ELLINGTON DO Aug 04, 2018 09:30
[2018-08-04] MEDS ORDERED: chlordiazePOXIDE HCL 25 MG CAPSULE PO ONE (09:45)
[2018-08-04] MEDS ORDERED: PROMETHAZINE 25 MG TABLET. PO ONE (09:45)
== END 2018-08-04 09:40 | disposition home or self-care (01) ==
LOC: ER 09:05
DX: F10.230 Alcohol dependence with withdrawal, uncomplicated (principal); F17.210 Nicotine dependence, cigarettes, uncomplicated; Y90.9 Presence of alcohol in blood, level not specified
CPT/HCPCS: 99283; Q0169

== ENCOUNTER → 2019-02-23 | Outpatient (CLI) | payer OTHER ==
[~2019-02-23] MED LIST changes: +LORA2TAB PO
--- NOTE | 2019-02-23 14:04 | RAD ---
EXAM: Head CT without contrast. HISTORY: Slurred speech. TECHNIQUE: Computed tomographic images of the head were obtained without contrast. *One or more of the following individualized dose reduction techniques were utilized for this examination: 1. Automated exposure control. 2. Adjustment of the mA and/or kV according to patient size. 3. Use of iterative reconstruction technique. COMPARISON: 11/14/2017. FINDINGS: There is no acute or subacute extra-axial or intraparenchymal hemorrhage. There is no mass effect or midline shift. There is no hydrocephalus. The barry-white matter differential pattern is intact. The visualized portions of the orbits, paranasal sinuses and mastoid air cells are unremarkable. No suspicious calvarial lesion is seen. IMPRESSION: No acute intracranial findings. Note is made that MRI is more sensitive for acute infarction. Electronically signed by: Niurka Souza MD (02/23/2019 2:01 PM) [facility]
--- NOTE | 2019-02-23 15:21 | RAD ---
EXAM: Carotid Doppler sonogram. HISTORY: Syncope. TECHNIQUE: Montano scale and color Doppler sonographic evaluation of the neck with spectral waveform analysis was performed and static images are submitted for review. FINDINGS: The peak systolic velocity within the right common carotid artery is 73 cm/sec. The peak systolic velocity within the right internal carotid artery is 102 cm/sec and the end diastolic velocity within the right internal carotid artery is 28 cm/sec. The right ICA/CCA ratio is 1.5. The peak systolic velocity within the left common carotid artery is 119 cm/sec. The peak systolic velocity within the left internal carotid artery is 98 cm/sec and the end diastolic velocity within the left internal carotid artery is 37 cm/sec. The left ICA/CCA ratio is 1.1. There is normal antegrade flow within both vertebral arteries. IMPRESSION: No Doppler evidence of hemodynamically significant stenosis within the carotid or vertebral arteries. PQRS Compliance Statement - Stenosis calculations for CT, MR and conventional angiography are based upon measurement of the distal ICA diameter in accordance with the NASCET methodology. Stenosis calculations for carotid ultrasound studies are derived from validated velocity criteria which are known to correlate with the NASCET methodology. Electronically signed by: Niurka Souza MD (02/23/2019 3:18 PM) [facility]
== END | disposition home or self-care (01) ==
LOC: CT 13:42
PROVIDERS: ATTEND Physician Assistant
DX: R47.81 Slurred speech (principal)
CPT/HCPCS: 70450; 93880

== ENCOUNTER 2020-03-20 18:26 | Emergency (ER) | payer OTHER ==
[~2020-03-20] VITALS: Ht 170.2 cm; Wt 56.0 kg
--- NOTE | 2020-03-20 19:45 | PHYS DOC ---
Past History Past Medical History: Alcoholism (TWAN POSADAS APRN) Past Surgical History: Cholecystectomy (TWAN POSADAS APRN) Smoking: Cigarettes, Less than 1pk/day Alcohol Use: Sober Additional Alcohol Information: Patient reports being sobor for months. Drug Use: None (TWAN POSADAS APRN) General Adult EDM: Chief Complaint: OVERDOSE HPI: HPI: Patient is a 55-year-old female who presents with OD. Patient states that she took 10 Benadryl tonight about 4 PM. Patient denies SI. "I am not sure why I took it, I was not trying to harm myself". Patient denies taking her medications. Patient denies any symptoms. Patient has history of anxiety, depression. Patient has a history of alcohol abuse and multiple rehab stays. (TWAN POSADAS APRN) Review of Systems: Review of Systems: Constitutional: Denies fever or chills Eyes: Denies change in visual acuity HENT: Denies nasal congestion or sore throat Respiratory: Denies cough or shortness of breath Cardiovascular: Denies chest pain or edema GI: Denies abdominal pain, nausea, vomiting, bloody stools or diarrhea : Denies dysuria Musculoskeletal: Denies back pain or joint pain Integument: Denies rash Neurologic: Denies headache, focal weakness or sensory changes Endocrine: Denies polyuria or polydipsia Lymphatic: Denies swollen glands Psychiatric: Ports depression or anxiety (TWAN POSADAS APRN) Allergies: Allergies: Allergies Coded Allergies Type Severity Reaction Last Updated Verified No Known Drug Allergies 03/20/20 No (TWAN POSADAS APRN) Physical Exam: PE: Constitutional: Well developed, well nourished, no acute distress, non-toxic appearance. [] HENT: Normocephalic, atraumatic, bilateral external ears normal, oropharynx moist, no oral exudates, nose normal. [] Eyes: PERRLA, EOMI, conjunctiva normal, no discharge. [] Neck: Normal range of motion, no tenderness, supple, no stridor. [] Cardiovascular:Heart rate regular rhythm, no murmur [] Lungs & Thorax: Bilateral breath sounds clear to auscultation [] Abdomen: Bowel sounds normal, soft, no tenderness, no masses, no pulsatile masses. [] Skin: Warm, dry, no erythema, no rash. [] Back: No tenderness, no CVA tenderness. [] Extremities: No tenderness, no cyanosis, no clubbing, ROM intact, no edema. [] Neurologic: Alert and oriented X 3, normal motor function, normal sensory function, no focal deficits noted. [] Psychologic: Affect normal, judgement normal, mood normal. [] (TWAN POSADAS APRN) PE: Constitutional: Well developed, well nourished, no acute distress, non-toxic appearance HENT: Normocephalic, atraumatic Eyes: PERRL, EOMI, conjunctiva normal, no discharge Neck: Normal range of motion, no tenderness, supple Lungs & Thorax: No respiratory distress, equal chest rise and fall Abdomen: Soft, no tenderness Skin: Warm, dry, no erythema, no rash Back: No tenderness, no CVA tenderness Extremities: No tenderness, ROM intact, no edema Neurologic: Alert and oriented X 3, normal motor function, normal sensory function, no focal deficits noted Psychologic: Affect normal, judgment normal., denies SI and HI (ALEX MATIAS DO) Current Patient Data: Vital Signs: Vital Signs Date Time Temp Pulse Resp B/P (MAP) Pulse Ox O2 Delivery O2 Flow Rate FiO2 03/20/20 18:51 97.6 116 18 149/108 (122) 99 (TWAN POSADAS APRN) EKG: EKG: Sinus tachycardia. Heart rate 109 bpm. [] (TWAN POSADAS APRN) Radiology/Procedures: Radiology/Procedures: [] (TWAN POSADAS APRN) Heart Score: Risk Factors: Risk Factors: DM, Current or recent (<one month) smoker, HTN, HLP, family history of CAD, obesity. Risk Scores: Score 0 - 3: 2.5% MACE over next 6 weeks - Discharge Home Score 4 - 6: 20.3% MACE over next 6 weeks - Admit for Clinical Observation Score 7 - 10: 72.7% MACE over next 6 weeks - Early Invasive Strategies (TWAN POSADAS APRN) Course & Med Decision Making: Course & Med Decision Making Pertinent Labs and Imaging studies reviewed. (See chart for details) []Patient is a 55-year-old female who presents with OD. Patient states that she took 10 Benadryl tonight about 4 PM. Patient denies SI. "I am not sure why I took it, I was not trying to harm myself". Patient denies taking her medi cations. Patient denies any symptoms. Patient has history of anxiety, depression. Consulted poison control. Instructed to do an EKG Q 6, watch for prolonged QRS greater than 110. Watch for hypertension and tachycardia. Tylenol, ASA, mag, EtOH, CMP ordered. Will monitor patient for 6 hours. Reassessed patient. Patient is hemodynamically stable. EKG shows Sinus Tachycardia, 109 BPM. QRS 86ms. Will continue to monitor. (TWAN POSADAS APRN) Course & Med Decision Making 2199- Sign out received from Rebekah STACY for patient with need for ED observation s/p benadryl overdose. VS stable. Patient seen and evaluated by myself. Patient monitored in department. NO significant change appreciated during observation period in ED. Denies suicidal or homicidal ideation. Patient stable for discharge with outpatient follow-up with PCP. Discussed findings and plan with patient, who acknowledges understanding and agreement. (ALEX MATIAS DO) Dragon Disclaimer: Dragon Disclaimer: This electronic medical record was generated, in whole or in part, using a voice recognition dictation system. (TWAN POSADAS APRN) Departure Departure: Impression: Primary Impression: Overdose Qualified Codes: T50.901A - Poisoning by unspecified drugs, medicaments and biological substances, accidental (unintentional), initial encounter Disposition: 01 DC HOME SELF CARE/HOMELESS Condition: STABLE Referrals: ELIS MONTERO MD (PCP) Patient Instructions: Overdose, Accidental Attending Signature Attending Signature I have personally interviewed and examined the patient. All charts, labs, and imaging studies were reviewed. I agree with the PA/WOODS SUPERINTENDENT's findings, exam, and plan. (ALEX MATIAS DO) TWAN POSADAS APRN Mar 20, 2020 19:45 ALEX MATIAS DO Mar 20, 2020 23:46
[2020-03-20 20:11] LABS: BASO % 0 % (0-3); EOS % 0 % (0-3); HEMATOCRIT 46.1 % (36.0-47.0); HEMOGLOBIN 15.3 g/dL (12.0-15.5); LYMPH # 2.5 x10^3/uL (1.0-4.8); LYMPH % 17 % (24-48); MEAN CORPUSCULAR HEMOGLOBIN 31 pg (25-35); MEAN CORPUSCULAR HGB CONC 33 g/dL (31-37); MEAN CORPUSCULAR VOLUME 95 fL (79-100); MONO # 1.2 x10^3/uL (0.0-1.1); MONO % 8 % (0-9); NEUT # 11.1 x10^3uL (1.8-7.7); NEUT % 75 % (31-73); PLATELET COUNT 325 x10^3/uL (140-400); RED BLOOD COUNT 4.87 x10^6/uL (3.50-5.40); RED CELL DISTRIBUTION WIDTH 12.4 % (11.5-14.5); WHITE BLOOD COUNT 14.8 x10^3/uL (4.0-11.0)
--- NOTE | 2020-03-20 20:11 | EKG ---
[address] [address] Test Date: 2020-03-20 Test Time: 19:49:23 Pat Name: RAINER QUESADA Department: Room: Gender: F Principal Developer: ASHANTI : 1965 Requested By: TWAN POSADAS Order Number: [id number] Reading MD: Measurements Intervals [place] Rate: 109 P: 22 MD: 152 QRS: -4 QRSD: 86 T: 3 QT: 356 QTc: 481 Interpretive Statements SINUS TACHYCARDIA LEFTWARD AXIS QRS(T) CONTOUR ABNORMALITY CONSISTENT WITH INFERIOR INFARCT PROBABLY OLD ABNORMAL ECG RI6.02 No previous ECG available for comparison
[2020-03-20] MEDS ORDERED: IV NORMAL SALINE 1,000ML 1,000 ML IV ONE (20:15)
[2020-03-20 20:19] LABS: ALBUMIN 3.6 g/dL (3.4-5.0); CALCIUM 8.7 mg/dL (8.5-10.1); CREATININE 1.2 mg/dL (0.6-1.0); GFR 46.5; MAGNESIUM 2.2 mg/dL (1.8-2.4); TOTAL BILIRUBIN 0.2 mg/dL (0.2-1.0); TOTAL PROTEIN 7.3 g/dL (6.4-8.2)
[2020-03-20 20:34] LABS: ACETAMIN < 2.0 mcg/mL (10-30)
[2020-03-20 20:49] LABS: BILIRUBIN,URINE NEG (NEG); CLARITY,URINE CLEAR; COLOR,URINE COLORLESS; GLUCOSE,URINE NEG (NEG)
[2020-03-20 20:50] LABS: BACTERIA,URINE 0 /HPF (0-FEW); NITRITE,URINE NEG (NEG); RBC,URINE 0 /HPF (0-2); UROBILINOGEN,URINE 0.2 mg/dL (0.2 mg/dL); WBC,URINE 0 /HPF (0-4)
[2020-03-20 22:08] LABS: ETHANOL < 10 mg/dL (0-10); POTASSIUM 2.8 mmol/L (3.5-5.1)
[2020-03-20] MEDS ORDERED: POTASSIUM CHLORIDE 20 MEQ TABLET.ER. PO ONE (23:30)
[2020-03-21 00:22] VITALS: BP 134/89
--- NOTE | 2020-03-21 06:31 | EKG ---
[address] [address] Test Date: 2020-03-20 Test Time: 21:10:50 Pat Name: RAINER QUESADA Department: Room: Gender: F Utility Tractor Operator: ASHANTI : 1965 Requested By: ALEX MATIAS Order Number: [id number] Reading MD: Measurements Intervals [place] Rate: 100 P: 90 [place]: 130 QRS: 83 QRSD: 80 T: 92 QT: 382 QTc: 496 Interpretive Statements SINUS RHYTHM LEFT ATRIAL ABNORMALITY LOW LIMB LEAD VOLTAGE PROLONGED QT ABNORMAL ECG RI6.02 No previous ECG available for comparison
--- NOTE | 2020-03-21 06:32 | EKG ---
[address] [address] Test Date: 2020-03-20 Test Time: 22:49:56 Pat Name: RAINER QUESADA Department: Room: Gender: F Fisher Pot: ASHANTI : 1965 Requested By: ALEX MATIAS Order Number: [id number] Reading MD: Measurements Intervals [place] Rate: 100 P: 49 [place]: 144 QRS: 12 QRSD: 82 T: 7 QT: 358 QTc: 465 Interpretive Statements SINUS RHYTHM NORMAL ECG RI6.02 No previous ECG available for comparison
== END 2020-03-21 00:39 | disposition home or self-care (01) ==
LOC: ER 18:26
DX: T45.0X1A Poisoning by antiallergic and antiemetic drugs, accidental (unintentional), initial encounter (principal); F10.20 Alcohol dependence, uncomplicated; F17.210 Nicotine dependence, cigarettes, uncomplicated; Y92.89 Other specified places as the place of occurrence of the external cause; Y90.0 Blood alcohol level of less than 20 mg/100 ml
CPT/HCPCS: 36415; 80053; 80329; 81001; 83735; 85025; 87086; 93005; 96360; 99285; G0480; J7030

== ENCOUNTER 2020-04-13 11:07 | Inpatient (IN) | payer OTHER ==
[~2020-04-13] VITALS: Ht 170.2 cm; Wt 54.6 kg
[2020-04-13 12:11] LABS: BASO % 0 % (0-3); EOS % 1 % (0-3); HEMATOCRIT 45.2 % (36.0-47.0); HEMOGLOBIN 15.3 g/dL (12.0-15.5); LYMPH # 0.8 x10^3/uL (1.0-4.8); LYMPH % 12 % (24-48); MEAN CORPUSCULAR HEMOGLOBIN 31 pg (25-35); MEAN CORPUSCULAR HGB CONC 34 g/dL (31-37); MEAN CORPUSCULAR VOLUME 92 fL (79-100); MONO # 0.6 x10^3/uL (0.0-1.1); MONO % 8 % (0-9); NEUT # 5.6 x10^3uL (1.8-7.7); NEUT % 80 % (31-73); PLATELET COUNT 296 x10^3/uL (140-400); RED BLOOD COUNT 4.92 x10^6/uL (3.50-5.40)
--- NOTE | 2020-04-13 12:15 | RAD ---
XR CHEST 1V History: Reason: renal filaure, pulm edema/ / Spl. Instructions: / History: Comparison: None. Findings: No consolidation or pleural effusion. Normal heart size. No pneumothorax. Impression: 1. No acute cardiopulmonary process. Electronically signed by: Ramiro Velásquez DO (04/13/2020 12:13 PM) [id number]
[2020-04-13 13:12] LABS: CALCIUM 8.7 mg/dL (8.5-10.1); CREATININE 3.5 mg/dL (0.6-1.0); GFR 13.5; POTASSIUM 3.3 mmol/L (3.5-5.1)
[2020-04-13 13:26] LABS: ALBUMIN 3.8 g/dL (3.4-5.0); MAGNESIUM 2.5 mg/dL (1.8-2.4); TOTAL BILIRUBIN 0.4 mg/dL (0.2-1.0); TOTAL PROTEIN 7.7 g/dL (6.4-8.2)
[2020-04-13 13:26] LABS: BILIRUBIN,URINE NEG (NEG); CLARITY,URINE HAZY; COLOR,URINE AMBER; GLUCOSE,URINE 100 mg/dL (NEG); NITRITE,URINE POS (NEG); RBC,URINE 0 /HPF (0-2); UROBILINOGEN,URINE 0.2 mg/dL (0.2 mg/dL)
[2020-04-13 13:27] LABS: BACTERIA,URINE MOD /HPF (0-FEW); SQUAMOUS EPITHELIAL CELL,UR MANY /LPF
--- NOTE | 2020-04-13 13:30 | RAD ---
INDICATION: Reason: acute on ckd, hydro? / Spl. Instructions: / History: COMPARISON: October 2017 TECHNIQUE: Grayscale and color ultrasound images obtained of the bilateral kidneys and bladder. FINDINGS: Right Kidney: 99 mm. No hydronephrosis. Left Kidney: 106 mm. No hydronephrosis. Hypoechoic region within the left kidney measuring 23 x 16 mm . Bladder: Urinary bladder volume is 82 cc IMPRESSION: * No hydronephrosis bilaterally. * Hypoechoic lesion of the left kidney could be secondary to a cyst but not seen well enough to excl ude internal complexity. Electronically signed by: Artur Robin MD (04/13/2020 1:27 PM) [id number]
--- NOTE | 2020-04-13 13:48 | EKG ---
[address] [address] Test Date: 2020-04-13 Test Time: 12:01:35 Pat Name: RAINER QUESADA Department: Room: Gender: F Home Health Aide Caregiver: DEEPAK : 1965 Requested By: DAVID MCKINLEY Order Number: [id number] Reading MD: Measurements Intervals [place] Rate: 89 P: -67 [place]: 118 QRS: 26 QRSD: 88 T: 34 QT: 360 QTc: 439 Interpretive Statements SUPRAVENTRICULAR RHYTHM OTHERWISE NORMAL ECG RI6.02 No previous ECG available for comparison
--- NOTE | 2020-04-13 15:56 | PHYS DOC ---
Past History Past Medical History: Alcoholism, Depression Past Surgical History: Cholecystectomy Smoking: Cigarettes, Less than 1pk/day Alcohol Use: Sober Drug Use: None General Adult EDM: Chief Complaint: ABNORMAL LABS HPI: HPI: 55-year-old female past medical history of depression, alcohol and tobacco use, presents to the ED sent in by her primary care physician Dr. Diop, due to abnormal lab work, reports her creatinine was elevated, unknown prior creatinine. States she has a "really bad urinary tract infection" and described her symptoms as suprapubic pain, dysuria and increased urinary frequency and urgency. Cannot recall any prior history of kidney disease or recent GI fluid losses but reports poor water intake. No associated fever, chills, nausea, vomiting, flank pain or flulike symptoms. Review of Systems: Review of Systems: Constitutional: Denies fever or chills Eyes: Denies change in visual acuity HENT: Denies nasal congestion or sore throat Respiratory: Denies cough or shortness of breath Cardiovascular: Denies chest pain or edema GI: Denies abdominal pain, nausea, vomiting, bloody stools or diarrhea : Denies discharge itching or odor Musculoskeletal: Denies back pain or joint pain Integument: Denies rash Neurologic: Denies headache, focal weakness or sensory changes Endocrine: Denies polyuria or polydipsia Lymphatic: Denies swollen glands Psychiatric: Denies depression or anxiety Allergies: Allergies: Allergies Coded Allergies Type Severity Reaction Last Updated Verified No Known Drug Allergies 04/13/20 No Physical Exam: PE: Constitutional: Well developed, well nourished, no acute distress, non-toxic appearance. HENT: Normocephalic, atraumatic, Eyes: EOMI, conjunctiva normal, no discharge. Neck: Normal range of motion, supple, Cardiovascular: S1/2 present, regular rhythm Lungs & Thorax: Speaking in full sentences, bilateral equal chest rise, no tachypnea or increased work of breathing Abdomen: soft, no tenderness, Skin: Warm, dry, no erythema, no rash. [] Back: No tenderness, no CVA tenderness. [] Extremities: No tenderness, no cyanosis, no lower extremity edema Neurologic: Alert and oriented X 3, normal motor function, normal sensory function, no focal deficits noted. [] Psychologic: Affect normal, judgement normal, mood normal. [] Current Patient Data: Labs: Laboratory Tests Test 04/13/20 11:50 04/13/20 12:13 White Blood Count 7.0 x10^3/uL (4.0-11.0) Red Blood Count 4.92 x10^6/uL (3.50-5.40) Hemoglobin 15.3 g/dL (12.0-15.5) Hematocrit 45.2 % (36.0-47.0) Mean Corpuscular Volume 92 fL (79-100) Mean Corpuscular Hemoglobin 31 pg (25-35) Mean Corpuscular Hemoglobin Concent 34 g/dL (31-37) Red Cell Distribution Width 12.0 % (11.5-14.5) Platelet Count 296 x10^3/uL (140-400) Neutrophils (%) (Auto) 80 % (31-73) H Lymphocytes (%) (Auto) 12 % (24-48) L Monocytes (%) (Auto) 8 % (0-9) Eosinophils (%) (Auto) 1 % (0-3) Basophils (%) (Auto) 0 % (0-3) Neutrophils # (Auto) 5.6 x10^3uL (1.8-7.7) Lymphocytes # (Auto) 0.8 x10^3/uL (1.0-4.8) L Monocytes # (Auto) 0.6 x10^3/uL (0.0-1.1) Eosinophils # (Auto) 0.0 x10^3/uL (0.0-0.7) Basophils # (Auto) 0.0 x10^3/uL (0.0-0.2) Sodium Level 139 mmol/L (136-145) Potassium Level 3.3 mmol/L (3.5-5.1) L Chloride Level 98 mmol/L (98-107) Carbon Dioxide Level 30 mmol/L (21-32) Anion Gap 11 (6-14) Blood Urea Nitrogen 38 mg/dL (7-20) H Creatinine 3.5 mg/dL (0.6-1.0) H Estimated GFR (Cockcroft-Gault) 13.5 BUN/Creatinine Ratio 11 (6-20) Glucose Level 118 mg/dL (70-99) H Calcium Level 8.7 mg/dL (8.5-10.1) Magnesium Level 2.5 mg/dL (1.8-2.4) H Total Bilirubin 0.4 mg/dL (0.2-1.0) Aspartate Amino Transferase (AST) 17 U/L (15-37) Alanine Aminotransferase (ALT) 19 U/L (14-59) Alkaline Phosphatase 109 U/L (46-116) TO-Nrm-T-Type Natriuretic Peptide 20 pg/mL (0-124) Total Protein 7.7 g/dL (6.4-8.2) Albumin 3.8 g/dL (3.4-5.0) Albumin/Globulin Ratio 1.0 (1.0-1.7) Urine Collection Type Unknown Urine Color [place] Urine Clarity Hazy Urine pH 5.0 Urine Specific [place] 1.010 Urine Protein Trace (NEG-TRACE) Urine Glucose (UA) 100 mg/dL (NEG) Urine Ketones (Stick) Neg mg/dL (NEG) Urine Blood Neg (NEG) Urine Nitrite Pos (NEG) Urine Bilirubin Neg (NEG) Urine Urobilinogen Dipstick 0.2 mg/dL (0.2 mg/dL) Urine Leukocyte Esterase Trace (NEG) Urine RBC 0 /HPF (0-2) Urine WBC 5-10 /HPF (0-4) Urine Squamous Epithelial Cells Many /LPF Urine Bacteria Mod /HPF (0-FEW) Vital Signs: Vital Signs Date Time Temp Pulse Resp B/P (MAP) Pulse Ox O2 Delivery O2 Flow Rate FiO2 04/13/20 11:29 97.6 93 16 124/85 (98) 95 EKG: EKG: Sinus rhythm at 89 bpm, no axis deviation, normal intervals, T wave inversion lead III, no ST elevations or ST depressions Radiology/Procedures: Radiology/Procedures: IMAGING REPORT Signed PATIENT: RAINER QUESADA ACCOUNT: [id number] : 1965 LOCATION: ER AGE: 55 SEX: F EXAM STATUS: REG ER ORD. PHYSICIAN: DAVID MCKINLEY DO REASON: acute on ckd, hydro? PROCEDURE: RENAL COMPLETE BILATERAL INDICATION: Reason: acute on ckd, hydro? / Spl. Instructions: / History: COMPARISON: October 2017 TECHNIQUE: Grayscale and color ultrasound images obtained of the bilateral kidneys and bladder. FINDINGS: Right Kidney: 99 mm. No hydronephrosis. Left Kidney: 106 mm. No hydronephrosis. Hypoechoic region within the left kidney measuring 23 x 16 mm. Bladder: Urinary bladder volume is 82 cc IMPRESSION: * No hydronephrosis bilaterally. * Hypoechoic lesion of the left kidney could be secondary to a cyst but not seen well enough to exclude internal complexity. Electronically signed by: Pippa Comer MD (04/13/2020 1:27 PM) [id number] DICTATED AND SIGNED BY: PIPPA COMER MD DATE: 04/13/20 1325 CC: ELIS DIOP MD; DAVID MCKINLEY DO ~MTH0 0 IMAGING REPORT Signed PATIENT: RAINER QUESADA ACCOUNT: [id number] : 1965 LOCATION: ER AGE: 55 SEX: F EXAM STATUS: REG ER ORD. PHYSICIAN: DAVID MCKINLEY DO REASON: renal filaure, pulm edema/ PROCEDURE: CHEST AP ONLY XR CHEST 1V History: Reason: renal filaure, pulm edema/ / Spl. Instructions: / History: Comparison: None. Findings: No consolidation or pleural effusion. Normal heart size. No pneumothorax. Impression: 1. No acute cardiopulmonary process. Electronically signed by: Ramiro Velásquez DO (04/13/2020 12:13 PM) [id number] DICTATED AND SIGNED BY: RAMIRO VELÁSQUEZ DO DATE: 04/13/20 1211 CC: ELIS DIOP MD; DAVID MCKINLEY DO ~MTH0 0 Heart Score: Risk Factors: Risk Factors: DM, Current or recent (<one month) smoker, HTN, HLP, family history of CAD, obesity. Risk Scores: Score 0 - 3: 2.5% MACE over next 6 weeks - Discharge Home Score 4 - 6: 20.3% MACE over next 6 weeks - Admit for Clinical Observation Score 7 - 10: 72.7% MACE over next 6 weeks - Early Invasive Strategies Course & Med Decision Making: Course & Med Decision Making Pertinent Labs and Imaging studies reviewed. (See chart for details) Concern for acute prerenal insufficiency. Normal potassium. Patient also with UTI and started on antibiotics. Will admit for IV fluids and further medical management. Patient accepted by Dr. Ybarra. I have spoken with the patient and/or caregivers. I have explained the patient's condition, diagnosis and treatment plan based on the information available to me at this time. I have answered the patient's and/or caregivers questions and answered any concerns. The patient and/or caregivers have as good an understanding of the patient's diagnosis, condition and treatment plan as can be expected at this point. The patient has been stabilized within the capability of the emergency department. The patient will be transported for further care and management or will be moved to an observation or inpatient service. I have communicated with the staff or medical practitioner taking over this patient's care. Dragon Disclaimer: Dragon Disclaimer: This electronic medical record was generated, in whole or in part, using a voice recognition dictation system. Departure Departure: Impression: Primary Impression: UTI (urinary tract infection) Additional Impression: Renal insufficiency Disposition: ADMITTED INPT THIS [facility] Admitting Physician: Ro Ybarra Condition: STABLE Referrals: ELIS DIOP MD (PCP) DAVID MCKINLEY DO Apr 13, 2020 15:56
[2020-04-13] MEDS ORDERED: ONDANSETRON PF 4 MG/2 ML VIAL. IVP PRN (16:00)
[2020-04-13] MEDS ORDERED: HYDROmorphone PF 1 MG/ML DISP.SYRIN IVP ONE (16:00)
[2020-04-13] MEDS ORDERED: PHENAZOPYRIDINE 200 MG TABLET. PO ONE (16:00)
[2020-04-13] MEDS ORDERED: IV NORMAL SALINE 1,000ML 1,000 ML IV SCH (16:00)
[2020-04-13] MEDS ORDERED: MORPHINE SULFATE 4 MG/ML DISP.SYRIN. IVP PRN (16:00)
[2020-04-13] MEDS ORDERED: OLAN10TA3 PO (17:06)
[2020-04-13 17:46] VITALS: BP 114/85
[2020-04-13] MEDS: IV NORMAL SALINE 1,000ML 1,000 ML IV SCH (18:15)
[2020-04-13] MEDS ORDERED: methylPREDNISolone SOD SUCC PF 40 MG/ML VIAL. IV ONE (19:30)
[2020-04-13 19:57] VITALS: BP 113/76
[2020-04-13] MEDS: traZODone 150 MG TABLET. PO SCH (20:18)
[2020-04-13] MEDS: OLANZapine 10 MG TABLET PO SCH (20:18)
--- NOTE | 2020-04-13 21:26 | HP ---
ADMIT DATE: 04/13/2020 HISTORY OF PRESENT ILLNESS: The patient is a 55-year-old female patient who apparently developed urinary tract infection for which she was seen by her primary care physician, ____. Urine was sent for culture and sensitivity and she was started on antibiotic that she took for about 7 days. She was seen again yesterday at her office and she has had lab work done and apparently there are abnormal with markedly elevated creatinine of about ____ and therefore, she was advised to come to the Emergency Room for further evaluation and treatment. Unfortunately, she does not know the name of the antibiotic, but most likely sulfamethoxazole/trimethoprim and therefore. She came to the Emergency Room for further evaluation. She continued to have dysuria and frequency. Denied any hematuria. She continued to have also low back pain. Her lab work in the Emergency Room showed that her creatinine has risen to 3.5 compared to her creatinine on 03/20/2020 that was 1.2. The patient was admitted for treatment of acute kidney injury that is likely due to some form of interstitial nephritis. In the Emergency Room, she has had ultrasound of both kidneys, which showed that there is no hydronephrosis bilaterally. There is hypoechoic lesion in the left kidney, could be secondary to a cyst, but not seen well enough to exclude internal complexity. The patient was treated with IV fluid and IV morphine. We will monitor her lab work closely and decide on further management accordingly. PAST MEDICAL HISTORY: Significant for anxiety, depression as well as alcoholism. PAST SURGICAL HISTORY: Significant for cholecystectomy. ALLERGIES: She has no known drug allergies. MEDICATIONS: She is currently on following medications: She is on escitalopram oxalate 10 mg once a day, trazodone 150 mg once a day and olanzapine 10 mg at bedtime. FAMILY HISTORY: She has one brother, younger and healthy. Father is alive at age of 84. Mother is alive at age of 84 and has fibromyalgia. SOCIAL HISTORY: She is , has 2 sons and 1 daughter. She claims that she does not drink alcohol though admitted here before with alcoholism, and she stated that she does not use any drugs. 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 PHYSICAL EXAMINATION: GENERAL: On arrival to the Emergency Room, she looked well and was clearly in no apparent respiratory distress. No pallor, jaundice, cyanosis or thyromegaly. No jugular venous distension. No limb edema. VITAL SIGNS: Her heart rate was 93, blood pressure was 124/85, temperature 97.6, respiratory rate was 16, and oxygen saturation was 95%. HEAD, EYES, EARS, NOSE AND THROAT: Normocephalic, atraumatic. NECK: Supple. HEART: Showed normal first and second heart sounds. No gallop or murmur. CHEST: Clear to auscultation. No crepitation or rhonchi. ABDOMEN: Distended, soft, nontender. NEUROLOGIC: She was grossly intact. LABORATORY DATA: Showed a white cell count 7000, hemoglobin was 15, hematocrit 45, MCV 92, and platelet count 296,000 with a manual differential showed 80% polymorphs, 12% lymphocytes and 8% monocytes. Her chemistry showed a serum sodium 139, potassium 3.3, chloride 98, bicarbonate 30, anion gap of 11, BUN 38, creatinine 3.5, estimated GFR was 13.5 mL. Her glucose 118, calcium was 8.7, magnesium 2.5. Total bilirubin, AST, ALT, alkaline phosphatase were normal. Total protein 7.7, albumin was 3.8. ASSESSMENT AND PLAN: In summary, this is a 55-year-old female patient, who was admitted with acute kidney injury, likely due to perhaps allergic reaction to nitrofurantoin or disulfiram. PLAN: My plan is to continue with IV fluid. I will obviously hold all this medications and start her on pain medications and antiemetic. We will repeat her lab works again. We will send urine for culture and sensitivity and decide the further management accordingly. LANCE SIMON MD DR: HECTOR/benedicto JOB#: [id number] / [id number]
[2020-04-13 22:22] VITALS: BP 95/60
[2020-04-14] MEDS: IV NORMAL SALINE 1,000ML 1,000 ML IV SCH ×3 (04:36→17:09)
[2020-04-14 05:31] VITALS: BP 110/71
[2020-04-14 06:34] LABS: ALBUMIN 3.2 g/dL (3.4-5.0); ALBUMIN/GLOBULIN RATIO 0.9 (1.0-1.7); CALCIUM 8.7 mg/dL (8.5-10.1); CREATININE 2.4 mg/dL (0.6-1.0); GFR 20.9; TOTAL BILIRUBIN 0.3 mg/dL (0.2-1.0); TOTAL PROTEIN 6.6 g/dL (6.4-8.2)
[2020-04-14 07:02] LABS: HEMATOCRIT 38.8 % (36.0-47.0); RED BLOOD COUNT 4.14 x10^6/uL (3.50-5.40); RED CELL DISTRIBUTION WIDTH 12.1 % (11.5-14.5); WHITE BLOOD COUNT 5.9 x10^3/uL (4.0-11.0)
[2020-04-14] MEDS: CITALOPRAM 20 MG TABLET. PO SCH (08:28)
[2020-04-14 11:02] VITALS: BP 125/77
[2020-04-14 15:30] VITALS: BP 117/73
[2020-04-14 19:30] VITALS: BP 123/81
--- NOTE | 2020-04-14 20:52 | PN ---
DATE: 04/14/2020 SUBJECTIVE: The patient is resting, slightly propped up in bed, in no apparent distress. She is awake, alert, stated that her back pain is much less. We did receive her urine culture result from her primary care physician. Apparently, there was no growth in her urine culture. PHYSICAL EXAMINATION: GENERAL: When I examined her this afternoon, she looked well, somewhat pale, but no jaundice, cyanosis or thyromegaly. No jugular venous distention. No limb edema. VITAL SIGNS: Her heart rate was 80, blood pressure was 117/73, temperature 98, respiratory rate was 18 and oxygen saturation was 96% on room air. The rest of clinical exam is stable. Her intake and output were incompletely recorded. LABORATORY DATA: Her lab work this morning showed a white cell count 5900, hemoglobin 13, hematocrit 39, MCV 94 and platelet count 263,000. Serum sodium was 139, potassium 4, chloride 103, bicarbonate 31, anion gap of 5, BUN 35, creatinine 2.4, estimated GFR was 20 mL per minute. Her glucose 138 and calcium was 8.7. Total bilirubin, AST, ALT, alkaline phosphatase were normal. Total protein is 6.6 and albumin 3.2. Her urinalysis was positive for nitrite and there were 5-10 wbc's, moderate amount of bacteria. The urine was sent for culture and sensitivity, the result of which is still pending at the time of this dictation. ASSESSMENT: 1. Acute kidney injury, improving. The cause of her kidney injury is not very clear. Neither nitrofurantoin or the Disulfiram are particularly nephrotoxic and there is no evidence of obstruction; however, her kidney function is improving. I did treat her with 40 mg of Solu-Medrol just in case this is representing some form of acute interstitial nephritis. Other medical problems include anxiety, depression as well as alcoholism. PLAN: My plan is to continue with IV fluid. We will evaluate her tomorrow, if kidney function is back to her baseline, she can be discharged home. LANCE SIMON MD DR: HECTOR/benedicto JOB#: [id number] / [id number]
[2020-04-14] MEDS: traZODone 150 MG TABLET. PO SCH (21:10)
[2020-04-14] MEDS: OLANZapine 10 MG TABLET PO SCH (21:10)
[2020-04-14 22:34] VITALS: BP 136/82
[2020-04-15] MEDS: IV NORMAL SALINE 1,000ML 1,000 ML IV SCH ×3 (00:41→10:15)
[2020-04-15 05:36] VITALS: BP 135/85
[2020-04-15] MEDS: CITALOPRAM 20 MG TABLET. PO SCH (08:11)
[2020-04-15 09:39] LABS: ALBUMIN 2.6 g/dL (3.4-5.0); ALBUMIN/GLOBULIN RATIO 0.9 (1.0-1.7); CALCIUM 8.1 mg/dL (8.5-10.1); CREATININE 1.5 mg/dL (0.6-1.0); GFR 35.9; POTASSIUM 3.6 mmol/L (3.5-5.1); TOTAL BILIRUBIN 0.2 mg/dL (0.2-1.0); TOTAL PROTEIN 5.4 g/dL (6.4-8.2)
[2020-04-15 10:21] VITALS: BP 119/73
[2020-04-15] MEDS ORDERED: IV DEXTROSE 5% 1,000 ML IV SCH (13:30)
[2020-04-15 14:50] LABS: CALCIUM 7.5 mg/dL (8.5-10.1); CREATININE 1.5 mg/dL (0.6-1.0); GFR 35.9; POTASSIUM 3.5 mmol/L (3.5-5.1)
[2020-04-15 14:57] LABS: ALBUMIN 2.6 g/dL (3.4-5.0); ALBUMIN/GLOBULIN RATIO 0.9 (1.0-1.7); TOTAL BILIRUBIN 0.1 mg/dL (0.2-1.0); TOTAL PROTEIN 5.5 g/dL (6.4-8.2)
[2020-04-15 15:18] VITALS: BP 122/74
--- NOTE | 2020-04-15 15:30 | NUR ---
PATIENT IS DISCHARGED HOME WITH SELF CARE. PT IS GIVEN ORDER FOR LABS ON 04/18. PT IS STABLE AT TIME OT DISCHARGE. IV REMOVED. PT AMBULATED OFF OF UNIT ACCOMPANIED BY STAFF.
--- NOTE | 2020-04-15 15:49 | DS ---
DATE OF DISCHARGE: 04/15/2020 HOSPITAL COURSE: The patient is a 55-year-old female patient, who was admitted through the Emergency Room. She apparently has had lab work done in her primary care office and was sent to the Emergency Room as her creatinine has dramatically risen from baseline 1.2-3.5. She was actually on nitrofurantoin . There was no evidence of any obstruction and the patient was started on IV fluid and her kidney function has steadily improved such that her creatinine came down from 3.5-1.5. Her sodium has risen during treatment up to 152, but she was instructed to drink plenty of water and also was given D5W and her sodium came down to 146 as kidney function is trending downward. The patient was discharged home with a clear instruction that she should drink plenty of fluid and avoid all nephrotoxic medications including the ibuprofen, Aleve, and Motrin. PHYSICAL EXAMINATION: GENERAL: When I saw her this afternoon, she looked well and was clearly in no apparent respiratory distress. No pallor, jaundice, cyanosis or thyromegaly. No jugular venous distension. No limb edema. VITAL SIGNS: Her heart rate was 84, blood pressure was 119/73, temperature was 98, respiratory rate 20, and oxygen saturation was 94% on room air. HEAD, EYES, EARS, NOSE AND THROAT: Showed normocephalic and atraumatic. NECK: Supple. HEART: Showed normal first and second heart sounds. No gallop, rub or murmur. CHEST: Clear to auscultation. No crepitation or rhonchi. ABDOMEN: Scaphoid, soft, nontender. NEUROLOGIC: She was grossly intact. Her intake was output was recorded. LABORATORY DATA: Showed a white cell count was 5900, hemoglobin 13, hematocrit 39, MCV 94 and platelet count 263,000. Serum sodium was 146, potassium 3.5, chloride 109, bicarbonate 28, anion gap of 9, BUN 22, creatinine 1.2, estimated GFR was mL per minute. Her glucose was 112, calcium was 7.5. Total bilirubin, AST, ALT, alkaline phosphatase were normal. Total protein was 5.5, albumin was 2.6. DISCHARGE MEDICATIONS: The patient was discharged home to continue on her escitalopram oxalate 10 mg once a day, olanzapine 10 mg at bedtime and trazodone 150 mg at bedtime. FINAL DISCHARGE DIAGNOSES: Acute kidney injury, improving; hypernatremia, resolved; anxiety; depression; alcoholism. LANCE SIMON MD DR: HECTOR/benedicto JOB#: [id number] / [id number]
== END 2020-04-15 15:30 | disposition home or self-care (01) | DRG 683 ==
LOC: ER 11:07 → 1 SOUTH 14:24
PROVIDERS: ADMIT Internal Medicine; ATTEND Internal Medicine
DX: N17.0 Acute kidney failure with tubular necrosis (principal); E87.0 Hyperosmolality and hypernatremia; J81.1 Chronic pulmonary edema; N10 Acute pyelonephritis; F10.20 Alcohol dependence, uncomplicated; F32.9 Major depressive disorder, single episode, unspecified; Z87.891 Personal history of nicotine dependence; T37.8X5A Adverse effect of other specified systemic anti-infectives and antiparasitics, initial encounter; F41.8 Other specified anxiety disorders; N14.1 Nephropathy induced by other drugs, medicaments and biological substances; T50.6X5A Adverse effect of antidotes and chelating agents, initial encounter
CPT/HCPCS: 36415; 71045; 76770; 80053; 81001; 82436; 83735; 83880; 84133; 84300; 85025; 85027; 87086; 93005; 96374; J1170; J2920; 99285-25; J7030